=== PATIENT | female | born 1990 | race African-American/Black ===

== ENCOUNTER 2016-05-28 16:35 | Emergency (ER) | payer OTHER ==
[~2016-05-28] VITALS: Ht 160 cm; Wt 81.6 kg
[~2016-05-28 16:35] MED LIST: 3-DAY VAGINAL C21 GM VAGIN; ACETAMINOPHEN-1 EAC1 ORAL; ACETAMINOPHEN500 MG ORAL; AFRIN NASAL SPR30 ML NASAL; ALBUTEROL SULF8.5 GM INH; AMOXICILLIN500 MG ORAL; AUGMENTIN 875-1 EAC1 ORAL; BACTRIM DS TAB1 EAC1 ORAL; BACTRIM-DS1 EA ORAL; CEPHALEXIN500 MG ORAL; CIPRO250 MG ORAL; CIPROFLOXACIN500 M2 ORAL; COLACE100 MG ORAL; CORTISPORIN EAR10 M1 RIGHT EAR; DIFLUCAN100 MG ORAL; DIFLUCAN150 MG PO; ENTEX T 60-3751 EACH PO; FLAGYL500 MG ORAL; FLONASE1 SPRAYS; IBUPROFEN600 MG ORAL; IBUPROFEN800 MG ORAL; KEFLEX500 MG ORAL; METRONIDAZOLE500 MG ORAL; MONISTAT 745 GM VG; NKM; NORCO 10-325 T1 EACH PO; NORCO 5-325 TA1 EACH ORAL; NORCO 5-325 TA1 EACH PO; ONDANSETRON ODT4 MG ORAL; PENICILLIN V P500 MG PO; PERCOCET 5-3251 EACH ORAL; PHENAZOPYRIDIN100 MG ORAL; PROMETHAZINE-C118 M1 ORAL; SUDAFED30 M1 PO; TAMIFLU75 MG ORAL; TRAMADOL HCL50 MG ORAL; TYLENOL EXTRA500 MG ORAL; VIBRAMYCIN100 MG ORAL; VICODIN 5-5001 EACH ORAL; VICODIN 5-5001 EACH PO; ZANTAC150 MG ORAL; ZITHROMAX250 MG ORAL; ZOFRAN ODT4 MG ORAL; ZOFRAN4 MG ORAL; [UNRECOGNIZED DRUG - REMARK]
[2016-05-28 17:25] LABS: BASOPHILS % (AUTO) 0.5 % (0.0-2.0); EOSINOPHILS % (AUTO) 2.4 % (0.0-3.0); LYMPHOCYTES % (AUTO) 24.7 % (20.0-45.0); MEAN CORPUSCULAR HEMOGLOBIN 23.5 PG (27.0-31.0); MEAN CORPUSCULAR HGB CONC 30.3 G/DL (32.0-36.0); MEAN CORPUSCULAR VOLUME 78 FL (80-99); MEAN PLATELET VOLUME 9.1 FL (6.5-10.1); MONOCYTES % (AUTO) 5.4 % (1.0-10.0); NEUTROPHILS % (AUTO) 66.9 % (45.0-75.0); PLATELET COUNT 257 K/UL (150-450); RED BLOOD COUNT 4.24 M/UL (4.20-5.40); RED CELL DISTRIBUTION WIDTH 18.9 % (11.6-14.8); WHITE BLOOD COUNT 10.6 K/UL (4.8-10.8)
[2016-05-28 17:29] VITALS: BP 103/62
--- NOTE | 2016-05-28 17:41 | Emergency Room Report ---
History of Present Illness General Chief Complaint: Abdominal Pain Source: Patient Present Illness HPI Patient is a 25-year-old female presented after having increased lower abdominal pain. Patient reported having increased nausea and vomiting. Patient stated that she had nausea did not vomit she stuck her finger down her throat. The patient had denied any fever. She reported having some lower abdominal pain which he describes a vague in nature and does not radiate. Patient states her last menses was mid March and she has irregular periods. Allergies: Coded Allergies: ASPIRIN (Verified Allergy, Unknown, 04/18/12) IBUPROFEN (Verified Allergy, Unknown, 04/13/15) Patient History Past Medical History: see triage record Last Menstrual Period: Mar 2016 Now: Yes - unsure Reviewed Nursing Documentation: PMH: Agreed, PSxH: Agreed Nursing Documentation-PMH Past Medical History: No Stated History Review of Systems All Other Systems: negative except mentioned in HPI Physical Exam Vital Signs Date Time Temp Pulse Resp B/P Pulse Ox O2 Delivery O2 Flow Rate FiO2 05/28/16 16:44 98.2 85 14 101/60 98 Room Air Sp02 EP Interpretation: reviewed, normal General Appearance: normal inspection, well appearing, no apparent distress, alert, GCS 15 Head: atraumatic ENT: normal ENT inspection, hearing grossly normal, normal voice Neck: normal inspection, full range of motion, supple, no bony tend Respiratory: normal inspection, lungs clear, normal breath sounds, no respiratory distress, no retraction, no wheezing Cardiovascular #1: regular rate, rhythm, no edema Gastrointestinal: normal inspection, normal bowel sounds, non tender, soft, no guarding, no hernia Genitourinary: no CVA tenderness Musculoskeletal: normal inspection, back normal, normal range of motion Neurologic: normal inspection, alert, oriented x3, responsive, snowmaker III-XII nml as tested, speech normal Psychiatric: normal inspection, judgement/insight normal, mood/affect normal Skin: normal inspection, normal color, no rash Medical Decision Making Diagnostic Impression: Primary Impression: UTI (lower urinary tract infection) Additional Impression: ER Course Patient presented for abdominal pain. Differential diagnoses included ischemic bowel, appendicitis, perforated viscus, abdominal aortic aneurysm, inferior myocardial infarction, viral gastroenteritis Because of complexity of patient's case laboratory testing and imaging studies were ordered.A urine test was notable for the evidence . Quantitative hCG was ordered. A pelvic ultrasound was ordered due to positive test. .The pelvic ultrasound showed an intrauterine with estimated gestational age 5 weeks with normal heart tones. Urinalysis showed evidence of urinary tract infection. The patient is advised to follow up with primary care doctor in 1-2 days. Patient is advised to return if any worsening condition or if any changes in status that are concerning Labs Test 05/28/16 16:50 05/28/16 17:15 05/28/16 18:00 Urine Color Yellow Urine Appearance Cloudy Urine pH 5.5 (4.5-8.0) Urine Specific [place] 1.020 (1.005-1.035) Urine Protein 1+ (NEGATIVE) Urine Glucose (UA) Negative (NEGATIVE) Urine Ketones Negative (NEGATIVE) Urine Occult Blood 3+ (NEGATIVE) Urine Nitrite Negative (NEGATIVE) Urine Bilirubin Negative (NEGATIVE) Urine Urobilinogen Normal MG/DL (0.0-1.0) Urine Leukocyte Esterase 2+ (NEGATIVE) Urine RBC 0-2 /HPF (0 - 2) Urine WBC Tntc /HPF (0 - 2) Urine Squamous Epithelial Cells Many /LPF (NONE/OCC) Urine Bacteria Many /HPF (NONE) Urine HCG, Qualitative Positive White Blood Count 10.6 K/UL (4.8-10.8) Red Blood Count 4.24 M/UL (4.20-5.40) Hemoglobin 10.0 G/DL (12.0-16.0) Hematocrit 33.0 % (37.0-47.0) Mean Corpuscular Volume 78 FL (80-99) Mean Corpuscular Hemoglobin 23.5 PG (27.0-31.0) Mean Corpuscular Hemoglobin Concent 30.3 G/DL (32.0-36.0) Red Cell Distribution Width 18.9 % (11.6-14.8) Platelet Count 257 K/UL (150-450) Mean Platelet Volume 9.1 FL (6.5-10.1) Neutrophils (%) (Auto) 66.9 % (45.0-75.0) Lymphocytes (%) (Auto) 24.7 % (20.0-45.0) Monocytes (%) (Auto) 5.4 % (1.0-10.0) Eosinophils (%) (Auto) 2.4 % (0.0-3.0) Basophils (%) (Auto) 0.5 % (0.0-2.0) Sodium Level 139 mEQ/L (135-145) Potassium Level 3.7 mEQ/L (3.4-4.9) Chloride Level 101 mEQ/L (98-107) Carbon Dioxide Level 26 mEQ/L (20-30) Anion Gap 12 (5-15) Blood Urea Nitrogen 8 mg/dL (7-23) Creatinine 0.7 mg/dL (0.5-0.9) Estimat Glomerular Filtration Rate > 60 mL/min (>60) Glucose Level 119 mg/dL (74-106) Calcium Level 9.1 mg/dL (8.6-10.2) Total Bilirubin < 0.2 mg/dL (0.0-1.2) Aspartate Amino Transf (AST/SGOT) 12 U/L (5-40) Alanine Aminotransferase (ALT/SGPT) 8 U/L (3-33) Alkaline Phosphatase 26 U/L (35-104) Total Protein 6.9 g/dL (6.6-8.7) Albumin 4.1 g/dL (3.5-5.2) Globulin 2.8 g/dL Albumin/Globulin Ratio 1.4 (1.0-2.7) Lipase 12 U/L (< 60) Last Vital Signs Date Time Temp Pulse Resp B/P Pulse Ox O2 Delivery O2 Flow Rate FiO2 05/28/16 17:29 98.0 86 21 103/62 100 Room Air Status: improved Disposition: HOME, SELF-CARE Condition: Stable Scripts Cephalexin* (KEFLEX*) 500 Mg Capsule 500 MG ORAL Q6H, #28 CAP 0 Refills Prov: Dwight Pyle 05/28/16 Referrals: [facility],REFERRING (PCP) Dwight Pyle May 28, 2016 17:41
[2016-05-28 17:54] LABS: APPEARANCE,URINE CLOUDY
[2016-05-28 17:55] LABS: KETONES,URINE NEGATIVE (NEGATIVE); LEUKOCYTE ESTERASE ,URINE 2+ (NEGATIVE); NITRITE,URINE NEGATIVE (NEGATIVE); PH,URINE 5.5 (4.5-8.0); PROTEIN,URINE 1+ (NEGATIVE); UROBILINOGEN,URINE NORMAL MG/DL (0.0-1.0)
[2016-05-28 18:04] LABS: ALANINE AMINOTRANSFERASE 8 U/L (3-33); ALBUMIN/GLOBULIN RATIO 1.4 (1.0-2.7); ANION GAP 12 (5-15); ASPARTATE AMINO TRANSFERASE 12 U/L (5-40); CALCIUM 9.1 mg/dL (8.6-10.2); CARBON DIOXIDE 26 mEQ/L (20-30); CHLORIDE 101 mEQ/L (98-107); CREATININE 0.7 mg/dL (0.5-0.9); GLOMERULAR FILTRATION RATE > 60 mL/min (>60); HEMOLYSIS 0; LIPASE 12 U/L (< 60); POTASSIUM 3.7 mEQ/L (3.4-4.9); SODIUM 139 mEQ/L (135-145); TOTAL PROTEIN 6.9 g/dL (6.6-8.7)
[2016-05-28 18:08] LABS: BACTERIA,URINE MANY /HPF; RBC,URINE 0-2 /HPF (0 - 2); SQUAMOUS EPITHELIAL CELL,UR MANY /LPF (NONE/OCC); WBC,URINE TNTC /HPF (0 - 2)
[2016-05-28] MEDS ORDERED: cefTRIAXone 1 GM in NS 55 ML IVPB ONE (18:15)
[2016-05-28] MEDS ORDERED: Tubing IV Secondary IV ONE (18:20)
[2016-05-28 18:28] VITALS: BP 102/59
[2016-05-28] MEDS ORDERED: KEFLEX500 MG ORAL (19:16)
[2016-05-28 20:15] VITALS: BP 124/65
[2016-05-28 20:16] VITALS: BP 124/65
--- NOTE | 2016-06-14 08:58 | Diagnostic Imaging Report ---
Indication:Lower abdominal and pelvic pain Technique: Grayscale and duplex Doppler imaging of the pelvis performed utilizing a transabdominal scan and endovaginal scan. Comparison: None Findings: Single living intrauterine demonstrated. heart tones are demonstrated. Yolk sac is poorly visualized. This may be a threatened spontaneous given that the yolk sac is not seen and the sac diameter is discordant with crown-rump length. The discrepancy may be on a technical basis due to a relatively poor scan. However followup is indicated and strongly recommended gestational sac is estimated at 5 weeks 4 days. [place]-rump length is estimated at 6 weeks 2 days. The uterus is retroverted. The left ovary is normal in appearance and measures 3 x 2.7 x 2.2 CM. The right ovary is not seen. Impression: Single living intrauterine . Gestational age is questionable but based on sonographic criteria estimated at 6 weeks 2 days plus or -4 days. Some evidence to suggest this may be a threatened as discussed above. Followup is recommended.
== END 2016-05-28 20:17 | disposition home or self-care (01) ==
LOC: EMR 17:35
DX: O23.41 Unspecified infection of urinary tract in pregnancy, first trimester (principal); Z3A.01 Less than 8 weeks gestation of pregnancy; Z88.6 Allergy status to analgesic agent
CPT/HCPCS: 36415; 76801; 80053; 81003; 81025; 83690; 84702; 85025; 87086; 96361; 96374; 99284; J0696; J2405; 76856

== ENCOUNTER 2016-12-28 10:33 | Emergency (ER) | payer OTHER ==
[~2016-12-28] VITALS: Ht 160 cm; Wt 108.9 kg
[2016-12-28] MEDS ORDERED: Morphine Sulfate 4mg/ml Inj IM ONE (11:30)
[2016-12-28 11:53] LABS: APPEARANCE,URINE CLOUDY; KETONES,URINE NEGATIVE (NEGATIVE); LEUKOCYTE ESTERASE ,URINE 1+ (NEGATIVE); NITRITE,URINE NEGATIVE (NEGATIVE); PH,URINE 6.5 (4.5-8.0); PROTEIN,URINE NEGATIVE (NEGATIVE); UROBILINOGEN,URINE NORMAL MG/DL (0.0-1.0)
[2016-12-28 12:15] VITALS: BP 132/97
[2016-12-28 12:20] LABS: BACTERIA,URINE FEW /HPF; RBC,URINE 0-2 /HPF (0 - 2); SQUAMOUS EPITHELIAL CELL,UR MODERATE /LPF (NONE/OCC)
[2016-12-28 12:21] LABS: AMORPHOUS SEDIMENT,UR FEW /LPF
[2016-12-28] MEDS ORDERED: Norco 5mg/325mg tab ORAL ONE (12:30)
[2016-12-28] MEDS ORDERED: KEFLEX500 MG ORAL (12:50)
[2016-12-28] MEDS ORDERED: NORCO 5-325 TA1 EACH ORAL (12:50)
[2016-12-28 12:57] VITALS: BP 130/80
--- NOTE | 2016-12-28 14:42 | Emergency Room Report ---
History of Present Illness General Chief Complaint: Back Pain-No Injury Source: Patient Present Illness HPI 26-year-old female presents ED complaining of back pain x2 days. Pain is 10 on a 10, sharp, localized to the right flank, nonradiating. Patient notes pain with urination. Notes history of frequent UTIs. Denies fevers or chills. Denies nausea or vomiting. No other aggravating relieving factors. Denies any other associated symptom Allergies: Coded Allergies: ASPIRIN (Verified Allergy, Unknown, 04/18/12) IBUPROFEN (Verified Allergy, Unknown, 04/13/15) Patient History Past Medical History: none Past Surgical History: none Pertinent Family History: none Social History: Denies: smoking, alcohol use, drug use Now: No Immunizations: UTD Reviewed Nursing Documentation: PMH: Agreed, PSxH: Agreed Nursing Documentation-PMH Past Medical History: No Stated History Review of Systems All Other Systems: negative except mentioned in HPI Physical Exam Vital Signs Date Time Temp Pulse Resp B/P (MAP) Pulse Ox O2 Delivery O2 Flow Rate FiO2 12/28/16 10:41 97.9 84 15 132/97 98 Nasal Cannula Sp02 EP Interpretation: reviewed, normal General Appearance: no apparent distress, alert, GCS 15, non-toxic, obese Head: normocephalic, atraumatic Eyes: bilateral eye normal inspection, bilateral eye PERRL ENT: hearing grossly normal, normal pharynx, no angioedema, normal voice Neck: full range of motion, supple/symm/no masses Respiratory: chest non-tender, lungs clear, normal breath sounds, speaking full sentences Cardiovascular #1: regular rate, rhythm, no edema Cardiovascular #2: 2+ carotid (R), 2+ carotid (L), 2+ radial (R), 2+ radial (L) , 2+ dorsalis pedis (R), 2+ dorsalis pedis (L) Gastrointestinal: normal bowel sounds, non tender, soft, non-distended, no guarding, no rebound Rectal: deferred Genitourinary: normal inspection, CVA tenderness (R) Musculoskeletal: back normal, gait/station normal, normal range of motion, non- tender Neurologic: alert, oriented x3, responsive, motor strength/tone normal, sensory intact, speech normal Psychiatric: judgement/insight normal, memory normal, mood/affect normal, no suicidal/homicidal ideation Reflexes: 3+ bicep (R), 3+ bicep (L), 3+ tricep (R), 3+ tricep (L), 3+ knee (R) , 3+ knee (L) Skin: normal color, no rash, warm/dry, well hydrated Lymphatic: no adenopathy Medical Decision Making Diagnostic Impression: Primary Impression: Pyelonephritis ER Course Hospital Course 26-year-old female presents to ED complaining of dysuria with R flank pain Differential diagnoses include: UTI, cystitis, pyelonephritis Clinical course Patient placed on stretcher. After initial history and physical I ordered pain meds, UA, urine . UA + bacteria. Consistent with pyelonephritis. However patient is afebrile, nontoxic. Not vomiting. Can be discharged with antibiotics Diagnosis - pyelonephritis Stable and discharged home with prescriptions for Rx [place], Keflex. Instructed to followup with PMD. Return to ED if symptoms recur or worsen Labs Test 12/28/16 11:30 Urine Color Pale yellow Urine Appearance Cloudy Urine pH 6.5 (4.5-8.0) Urine Specific [place] 1.010 (1.005-1.035) Urine Protein Negative (NEGATIVE) Urine Glucose (UA) Negative (NEGATIVE) Urine Ketones Negative (NEGATIVE) Urine Occult Blood Negative (NEGATIVE) Urine Nitrite Negative (NEGATIVE) Urine Bilirubin Negative (NEGATIVE) Urine Urobilinogen Normal MG/DL (0.0-1.0) Urine Leukocyte Esterase 1+ (NEGATIVE) Urine RBC 0-2 /HPF (0 - 2) Urine WBC 2-4 /HPF (0 - 2) Urine Squamous Epithelial Cells Moderate /LPF (NONE/OCC) Urine Amorphous Sediment Few /LPF (NONE) Urine Bacteria Few /HPF (NONE) Urine HCG, Qualitative Negative Last Vital Signs Date Time Temp Pulse Resp B/P (MAP) Pulse Ox O2 Delivery O2 Flow Rate FiO2 12/28/16 12:57 78 16 130/80 98 12/28/16 12:15 97.9 Nasal Cannula Status: improved Disposition: HOME, SELF-CARE Condition: Stable Scripts Cephalexin* (KEFLEX*) 500 Mg Capsule 500 MG ORAL Q6H, #28 CAP 0 Refills Prov: JOSE HUNTLEY M.D. 12/28/16 Hydrocodone Bit/Acetaminophen 5-325* (NORCO 5-325*) 1 Each Tablet 1 TAB ORAL Q6H Y for For Pain, #10 TAB 0 Refills Prov: JOSE HUNTLEY M.D. 12/28/16 Patient Instructions: Pyelonephritis, Adult JOSE HUNTLEY M.D. Dec 28, 2016 14:42
== END 2016-12-28 13:01 | disposition home or self-care (01) ==
LOC: EMR 12:23
DX: N12 Tubulo-interstitial nephritis, not specified as acute or chronic (principal); Z88.6 Allergy status to analgesic agent
CPT/HCPCS: 81003; 81025; 96374; 99284; J2270

== ENCOUNTER 2017-01-23 21:23 | Emergency (ER) | payer OTHER ==
[~2017-01-23] VITALS: Ht 160 cm; Wt 99.8 kg
[2017-01-23] MEDS ORDERED: NKM (21:40)
[2017-01-23] MEDS ORDERED: Norco 5mg/325mg tab PO ONE (22:00)
[2017-01-23] MEDS ORDERED: NORCO 5-325 TA1 EACH ORAL (22:43)
[2017-01-23 22:50] VITALS: BP 103/68
--- NOTE | 2017-01-24 01:21 | Emergency Room Report ---
History of Present Illness General Chief Complaint: Lower Extremity Injury Source: Patient Present Illness HPI 26-year-old female presents ED complaining of right ankle pain status post fall. She states she rolled her ankle tonight on the sidewalk. Patient presents with pain and swelling to her right ankle. Pain is throbbing, 10 out of 10, nonradiating. Unable to bear weight. Denies any other injuries. No other aggravating factors. Denies any other associated symptoms Allergies: Coded Allergies: ASPIRIN (Verified Allergy, Unknown, 04/18/12) IBUPROFEN (Verified Allergy, Unknown, 04/13/15) Patient History Past Medical History: none Past Surgical History: none Pertinent Family History: none Social History: Denies: smoking, alcohol use, drug use Last Menstrual Period: 01/18/17 Now: No Immunizations: UTD Reviewed Nursing Documentation: PMH: Agreed, PSxH: Agreed Nursing Documentation-PMH Past Medical History: No History, Except For Review of Systems All Other Systems: negative except mentioned in HPI Physical Exam Vital Signs Date Time Temp Pulse Resp B/P (MAP) Pulse Ox O2 Delivery O2 Flow Rate FiO2 01/23/17 21:32 99.0 99 16 103/68 99 Room Air Sp02 EP Interpretation: reviewed, normal General Appearance: no apparent distress, alert, GCS 15, non-toxic Head: normocephalic, atraumatic Eyes: bilateral eye normal inspection, bilateral eye PERRL ENT: hearing grossly normal, normal pharynx, no angioedema, normal voice Neck: full range of motion, supple/symm/no masses Respiratory: chest non-tender, lungs clear, normal breath sounds, speaking full sentences Cardiovascular #1: regular rate, rhythm, no edema Cardiovascular #2: 2+ carotid (R), 2+ carotid (L), 2+ radial (R), 2+ radial (L) , 2+ dorsalis pedis (R), 2+ dorsalis pedis (L) Gastrointestinal: normal bowel sounds, non tender, soft, non-distended, no guarding, no rebound Rectal: deferred Genitourinary: normal inspection, no CVA tenderness Musculoskeletal: back normal, swelling - R ankle Neurologic: alert, oriented x3, responsive, motor strength/tone normal, sensory intact, speech normal Psychiatric: judgement/insight normal, memory normal, mood/affect normal, no suicidal/homicidal ideation Reflexes: 3+ bicep (R), 3+ bicep (L), 3+ tricep (R), 3+ tricep (L), 3+ knee (R) , 3+ knee (L) Skin: normal color, no rash, warm/dry, well hydrated Lymphatic: no adenopathy Procedures Splinting Splinting : Consent: Verbal Pre-Made Type: NANCY wrap - R ankle Pre-Proc Neuro Vasc Exam: normal Post-Proc Neuro Vasc Exam: normal Patient Tolerated: Well Complications: None Medical Decision Making Diagnostic Impression: Primary Impression: Ankle sprain Qualified Codes: S93.401A - Sprain of unspecified ligament of right ankle, initial encounter ER Course Hospital Course 26-year-old F presents to ED complaining of R ankle pain s/p trip and fall Differential diagnoses include: Fracture, dislocation, sprain, contusion Clinical course Patient placed on stretcher. After initial history and physical, I ordered pain medications and Xrays of R foot/ankle Xrays prelim read shows no acute fracture/dislocation. placed in nancy wrap, given crutches Diagnosis - ankle sprain Stable and discharged to home with prescription for [place]. apply ice, keep elevated. weight bear as tolerated. Followup with PMD. Return to ED if symptoms recur or worsen Other X-Ray Diagnostic Results Other X-Ray Diagnostic Results #1: X-Ray ordered: R ankle # of Views/Limited Vs Complete: 3 View Indication: Pain EP Interpretation: Yes Interpretation: no dislocation, no soft tissue swelling, no fractures Impression: No acute disease Electronically Signed by: Electronically signed by Cosme Bonilla MD Other X-Ray Diagnostic Results #2: X-Ray ordered: Right foot # of Views/Limited Vs Complete: 3 View Indication: Pain EP Interpretation: Yes Interpretation: no dislocation, no soft tissue swelling, no fractures Impression: No acute disease Electronically Signed by: Electronically signed by Cosme Bonilla MD Last Vital Signs Date Time Temp Pulse Resp B/P (MAP) Pulse Ox O2 Delivery O2 Flow Rate FiO2 01/23/17 22:50 99 16 103/68 Room Air 01/23/17 21:32 99.0 99 Status: improved Disposition: HOME, SELF-CARE Condition: Stable Scripts Hydrocodone Bit/Acetaminophen 5-325* (NORCO 5-325*) 1 Each Tablet 1 TAB ORAL Q6H Y for For Pain, #10 TAB 0 Refills Prov: COSME BONILLA M.D. 01/23/17 Patient Instructions: Ankle Sprain COSME BONILLA M.D. Jan 24, 2017 01:21
--- NOTE | 2017-01-24 10:48 | Diagnostic Imaging Report ---
Indication: Pain Comparison: None Findings: 3 views of the right foot were obtained. No acute fractures, malalignment, erosions or periostitis are identified. Bone mineralization is within normal limits. Soft tissues are unremarkable. Impression: Negative examination of the right foot.
--- NOTE | 2017-01-24 10:49 | Diagnostic Imaging Report ---
Indication: Pain right ankle Comparison: 11/16/13 Findings: 3 views of the right ankle obtained. No acute fracture, malalignment, periostitis, or osteochondral defects are identified. Soft tissues are unremarkable. Impression: Negative examination
== END 2017-01-23 22:50 | disposition home or self-care (01) ==
LOC: EMR 22:28
DX: S93.401A Sprain of unspecified ligament of right ankle, initial encounter (principal); W19.XXXA Unspecified fall, initial encounter; Y92.480 Sidewalk as the place of occurrence of the external cause; Z88.6 Allergy status to analgesic agent
CPT/HCPCS: 99284

== ENCOUNTER 2017-03-03 20:13 | Emergency (ER) | payer OTHER ==
--- NOTE | 2017-03-03 21:12 | Emergency Room Report ---
History of Present Illness General Chief Complaint: To Be Triaged Present Illness HPI Is a 26-year-old female presents with chief complaint abdominal pain. She was called and placed into a room. She then left . This was done before my shift. Patient was not seen by any doctor. Allergies: Coded Allergies: ASPIRIN (Verified Allergy, Unknown, 04/18/12) IBUPROFEN (Verified Allergy, Unknown, 04/13/15) Medical Decision Making Diagnostic Impression: Primary Impression: Abdominal pain Qualified Codes: R10.84 - Generalized abdominal pain Disposition: ELOPED Condition: Stable CHARMAINE BILLY M.D. Mar 03, 2017 21:12
== END 2017-03-03 20:25 | disposition left against medical advice (07) ==
LOC: EMR 20:25
DX: R10.9 Unspecified abdominal pain (principal); Z53.21 Procedure and treatment not carried out due to patient leaving prior to being seen by health care provider
CPT/HCPCS: 99281

== ENCOUNTER 2017-03-24 09:45 | Emergency (ER) | payer OTHER ==
[~2017-03-24] VITALS: Ht 160 cm; Wt 99.8 kg
[2017-03-24 09:52] VITALS: BP 117/54
[2017-03-24] MEDS ORDERED: NKM (09:54)
--- NOTE | 2017-03-24 10:03 | Emergency Room Report ---
History of Present Illness General Chief Complaint: Abdominal Pain Source: Patient Present Illness HPI 26-year-old female walks in with yellow vaginal discharge and suprapubic pelvic pain since last night. Multiple visits here in the ER for similar complaint Patient endorses vaginal discharge after recent unprotected sex with consistent partner History of previous STD but does not remember which one Denies fever or chills or upper abdominal pain In December was diagnosed with pyelonephritis never UA showed only 2-4 WBCs and "some bacteria" Urine culture did not show definitive bacterial infection Denies sick contacts foreign travel Denies previous abdominal pelvic surgery Allergies: Coded Allergies: ASPIRIN (Verified Allergy, Unknown, 04/18/12) IBUPROFEN (Verified Allergy, Unknown, 04/13/15) Patient History Past Medical History: none Past Surgical History: none Pertinent Family History: none Social History: Denies: smoking, alcohol use, drug use Last Menstrual Period: One week ago Now: No Immunizations: UTD Reviewed Nursing Documentation: PMH: Agreed, PSxH: Agreed Nursing Documentation-PMH Past Medical History: No Stated History Review of Systems All Other Systems: negative except mentioned in HPI Physical Exam Vital Signs Date Time Temp Pulse Resp B/P (MAP) Pulse Ox O2 Delivery O2 Flow Rate FiO2 03/24/17 09:52 98.1 96 16 117/54 98 Room Air Sp02 EP Interpretation: reviewed, normal General Appearance: normal inspection, well appearing, no apparent distress, alert Head: atraumatic Eyes: bilateral eye PERRL, bilateral eye EOMI ENT: normal ENT inspection, hearing grossly normal, normal voice Neck: normal inspection, full range of motion, supple, no bony tend Respiratory: normal inspection, lungs clear, normal breath sounds, no respiratory distress, no retraction, no wheezing Cardiovascular #1: regular rate, rhythm, no edema Gastrointestinal: normal inspection, normal bowel sounds, non tender, soft, no guarding, no hernia Genitourinary: no CVA tenderness Musculoskeletal: normal inspection, back normal, normal range of motion, Jazmyn' s Sign negative Neurologic: normal inspection, alert, oriented x3, responsive, rate clerk passenger III-XII nml as tested, motor strength/tone normal, speech normal Psychiatric: normal inspection, judgement/insight normal, mood/affect normal Skin: normal inspection, normal color, no rash Medical Decision Making Diagnostic Impression: Primary Impression: Vaginal discharge Additional Impression: Cervicitis ER Course Urine negative Urinalysis does show some bacteria Given vaginal discharge and recent unprotected sex with urinalysis showing some bacteria, suspect possible cervicitis Unlikely PUD or [place] German syndrome given no focal abdominal deficits, no fever, and patient's well appearance Gait and IM ceftriaxone and oral azithromycin Rx doxycycline as well yo M F with ER course: Patient has remained stable during ED stay. Disposition: Patient is to be discharged to home. Prescriptions given are doxycycline Patient is instructed to follow up with their primary care doctor within 5 days. Strict return precautions discussed with patient such as fever, chills, worsening/severe pain, nausea, vomiting, which may indicate severe illness. Patient verbalizes understanding and agrees with plan. Please note that this Emergency Department Report was dictated using [employer] caprifier technology software, occasionally this can lead to erroneous entry secondary to interpretation by the dictation equipment Last Vital Signs Date Time Temp Pulse Resp B/P (MAP) Pulse Ox O2 Delivery O2 Flow Rate FiO2 03/24/17 09:52 98.1 96 16 117/54 98 Room Air Status: improved Disposition: HOME, SELF-CARE Scripts Doxycycline Hyclate* (VIBRAMYCIN*) 100 Mg Capsule 100 MG ORAL EVERY 12 HOURS for 7 Days, #14 CAP 0 Refills Prov: CELESTE FAROOQ M.D. 03/24/17 CELESTE FAROOQ M.D. Mar 24, 2017 10:03
[2017-03-24 10:13] LABS: APPEARANCE,URINE VERY CLOUDY; KETONES,URINE NEGATIVE (NEGATIVE); LEUKOCYTE ESTERASE ,URINE 2+ (NEGATIVE); NITRITE,URINE NEGATIVE (NEGATIVE); PH,URINE 6.5 (4.5-8.0); PROTEIN,URINE 2+ (NEGATIVE); UROBILINOGEN,URINE 1 MG/DL (0.0-1.0)
[2017-03-24 10:24] LABS: BACTERIA,URINE FEW /HPF; SQUAMOUS EPITHELIAL CELL,UR MANY /LPF (NONE/OCC)
[2017-03-24] MEDS ORDERED: VIBRAMYCIN100 MG ORAL (10:43)
[2017-03-24] MEDS ORDERED: Ketorolac 60mg Inj IM ONE (10:45)
[2017-03-24] MEDS ORDERED: Lidocaine 1% MPF 10mg/ml 5ml INJ ONE (10:45)
[2017-03-24] MEDS ORDERED: Azithromycin 250mg tab ORAL ONE (10:45)
[2017-03-24 10:58] VITALS: BP 117/54
== END 2017-03-24 10:58 | disposition home or self-care (01) ==
LOC: EMR 10:25
DX: N89.8 Other specified noninflammatory disorders of vagina (principal); N72 Inflammatory disease of cervix uteri; Z88.6 Allergy status to analgesic agent
CPT/HCPCS: 81003; 81025; 96372; 99284; J0696; Q0144

== ENCOUNTER 2017-04-06 20:30 | Emergency (ER) | payer SELFPAY ==
[~2017-04-06] VITALS: Ht 160 cm; Wt 115.7 kg
[2017-04-06 20:43] VITALS: BP 114/78
[2017-04-06 21:54] LABS: APPEARANCE,URINE CLEAR; KETONES,URINE NEGATIVE (NEGATIVE); LEUKOCYTE ESTERASE ,URINE 1+ (NEGATIVE); NITRITE,URINE NEGATIVE (NEGATIVE); PH,URINE 8 (4.5-8.0); PROTEIN,URINE 1+ (NEGATIVE); UROBILINOGEN,URINE NORMAL MG/DL (0.0-1.0)
--- NOTE | 2017-04-06 22:13 | Emergency Room Report ---
History of Present Illness General Chief Complaint: Abdominal Pain Source: Patient Present Illness HPI 26-year-old female, no significant past medical history, presenting with menorrhagia, nausea vomiting and diarrhea for 2 days. Patient states that for 2 weeks she has had menstrual bleeding, about one to 2 packs a day, no passage of clots, states that her period is usually irregular. Also states that she has had some nausea vomiting, about 2 episodes today, and watery nonbloody diarrhea for the last 2 days. No fever no chills. Points to suprapubic area of her crampy abdominal pain. No abdominal surgeries. Denies any abnormal vaginal discharge, currently not sexually active Allergies: Coded Allergies: ASPIRIN (Verified Allergy, Unknown, 04/18/12) IBUPROFEN (Verified Allergy, Unknown, 04/13/15) Patient History Past Medical History: see triage record Past Surgical History: none Pertinent Family History: none Last Menstrual Period: 04/06/17 Reviewed Nursing Documentation: PMH: Agreed, PSxH: Agreed Review of Systems All Other Systems: negative except mentioned in HPI Physical Exam Vital Signs Date Time Temp Pulse Resp B/P (MAP) Pulse Ox O2 Delivery O2 Flow Rate FiO2 04/06/17 20:39 98.2 96 12 114/78 99 Room Air Sp02 EP Interpretation: reviewed, normal General Appearance: alert, GCS 15, non-toxic, mild distress Head: normocephalic, atraumatic Eyes: bilateral eye normal inspection, bilateral eye PERRL, bilateral eye EOMI ENT: normal ENT inspection, normal pharynx, normal voice, moist mucus membranes Neck: normal inspection, full range of motion, supple Respiratory: normal inspection, lungs clear, normal breath sounds, no respiratory distress, no retraction, no wheezing, speaking full sentences, chest symmetrical Cardiovascular #1: normal inspection, regular rate, rhythm, normal capillary refill Cardiovascular #2: 2+ radial (R), 2+ radial (L) Gastrointestinal: normal inspection, non tender, soft, non-distended, no guarding Genitourinary: no CVA tenderness, adnexa normal, cervix normal, os closed, other - no blood in vaginal vault Musculoskeletal: normal inspection, back normal, normal range of motion, non- tender Neurologic: normal inspection, alert, oriented x3, responsive, motor strength/ tone normal, sensory intact, normal gait, speech normal Psychiatric: normal inspection, judgement/insight normal, memory normal Skin: normal inspection, normal color, no rash, warm/dry, well hydrated, normal turgor Medical Decision Making Diagnostic Impression: Primary Impression: Menorrhagia Additional Impression: Abdominal pain ER Course 26-year-old female with nausea vomiting diarrhea, also 2 weeks of menorrhagia Differential Diagnosis: Gastritis, gastroenteritis, cholecystitis, appendicitis, diverticulitis, SBO, , UTI/pyelo At this time abdomen is soft nontender, not likely to have acute intra- abdominal surgical pathology, will hold CT for now. Also at this time patient does not appear to be in acute distress, unlikely to be ovarian torsion given the benign physical exam Plan: Basic labs, ua ER course: Patient has remained stable during ED stay. Pain improved. Repeat abdominal exam is nontender. Tolerating PO no pads used in ED HD stable dc home Disposition: Patient is to be discharged to home. Patient is instructed to follow up with their primary care doctor within 5 days. Strict return precautions discussed with patient such as fever, chills, worsening/severe abdominal pain, nausea, vomiting, black or bloody stools, which may indicate severe illness. Patient verbalizes understanding and agrees with plan. Please note that this Emergency Department Report was dictated using [employer] h[employer] helper technology software, occasionally this can lead to erroneous entry secondary to interpretation by the dictation equipment Laboratory Tests Test 04/06/17 21:12 04/06/17 22:00 Urine Color Yellow Urine Appearance Clear Urine pH 8 (4.5-8.0) Urine Specific [place] 1.010 (1.005-1.035) Urine Protein 1+ (NEGATIVE) H Urine Glucose (UA) Negative (NEGATIVE) Urine Ketones Negative (NEGATIVE) Urine Occult Blood 3+ (NEGATIVE) H Urine Nitrite Negative (NEGATIVE) Urine Bilirubin Negative (NEGATIVE) Urine Urobilinogen Normal MG/DL (0.0-1.0) Urine Leukocyte Esterase 1+ (NEGATIVE) H Urine RBC 5-10 /HPF (0 - 2) H Urine WBC 2-4 /HPF (0 - 2) Urine Squamous Epithelial Cells Few /LPF (NONE/OCC) Urine Bacteria Few /HPF (NONE) Urine HCG, Qualitative Negative White Blood Count 13.0 K/UL (4.8-10.8) H Red Blood Count 5.01 M/UL (4.20-5.40) Hemoglobin 11.8 G/DL (12.0-16.0) L Hematocrit 41.2 % (37.0-47.0) Mean Corpuscular Volume 82 FL (80-99) Mean Corpuscular Hemoglobin 23.5 PG (27.0-31.0) L Mean Corpuscular Hemoglobin Concent 28.6 G/DL (32.0-36.0) L Red Cell Distribution Width 16.2 % (11.6-14.8) H Platelet Count 282 K/UL (150-450) Mean Platelet Volume 7.5 FL (6.5-10.1) Neutrophils (%) (Auto) 74.0 % (45.0-75.0) Lymphocytes (%) (Auto) 17.1 % (20.0-45.0) L Monocytes (%) (Auto) 4.9 % (1.0-10.0) Eosinophils (%) (Auto) 3.6 % (0.0-3.0) H Basophils (%) (Auto) 0.5 % (0.0-2.0) Sodium Level 141 MMOL/L (136-145) Potassium Level 3.4 MMOL/L (3.5-5.1) L Chloride Level 105 MMOL/L (98-107) Carbon Dioxide Level 28 MMOL/L (21-32) Anion Gap 8 mmol/L (5-15) Blood Urea Nitrogen 6 mg/dL (7-18) L Creatinine 0.9 MG/DL (0.55-1.30) Estimate Glomerular Filtration Rate > 60 mL/min (>60) Glucose Level 90 MG/DL (74-106) Calcium Level 9.8 MG/DL (8.5-10.1) Total Bilirubin 0.3 MG/DL (0.2-1.0) Aspartate Amino Transferase (AST) 16 U/L (15-37) Alanine Aminotransferase (ALT) 27 U/L (12-78) Alkaline Phosphatase 43 U/L (46-116) L Total Protein 8.3 G/DL (6.4-8.2) H Albumin 3.8 G/DL (3.4-5.0) Globulin 4.5 g/dL Albumin/Globulin Ratio 0.8 (1.0-2.7) L Lipase 106 U/L (73-393) Human Chorionic Gonadotropin, Quant < 1 mIU/mL (1-6) L Last Vital Signs Date Time Temp Pulse Resp B/P (MAP) Pulse Ox O2 Delivery O2 Flow Rate FiO2 04/06/17 20:43 98.2 96 12 114/78 99 Room Air Disposition: HOME, SELF-CARE Condition: Improved Jennifer Guerrero M.D. Apr 06, 2017 22:13
[2017-04-06 22:18] LABS: BACTERIA,URINE FEW /HPF; SQUAMOUS EPITHELIAL CELL,UR FEW /LPF (NONE/OCC)
[2017-04-06 22:43] VITALS: BP 119/75
[2017-04-06 22:44] LABS: BASOPHILS % (AUTO) 0.5 % (0.0-2.0); EOSINOPHILS % (AUTO) 3.6 % (0.0-3.0); LYMPHOCYTES % (AUTO) 17.1 % (20.0-45.0); MEAN CORPUSCULAR HEMOGLOBIN 23.5 PG (27.0-31.0); MEAN CORPUSCULAR HGB CONC 28.6 G/DL (32.0-36.0); MEAN CORPUSCULAR VOLUME 82 FL (80-99); MEAN PLATELET VOLUME 7.5 FL (6.5-10.1); MONOCYTES % (AUTO) 4.9 % (1.0-10.0); PLATELET COUNT 282 K/UL (150-450); RED BLOOD COUNT 5.01 M/UL (4.20-5.40); RED CELL DISTRIBUTION WIDTH 16.2 % (11.6-14.8)
[2017-04-06 22:58] LABS: ANION GAP 8 mmol/L (5-15); CALCIUM 9.8 MG/DL (8.5-10.1); CARBON DIOXIDE 28 MMOL/L (21-32); CHLORIDE 105 MMOL/L (98-107); CREATININE 0.9 MG/DL (0.55-1.30); GLOMERULAR FILTRATION RATE > 60 mL/min (>60); POTASSIUM 3.4 MMOL/L (3.5-5.1); SODIUM 141 MMOL/L (136-145)
[2017-04-06 23:02] LABS: ALANINE AMINOTRANSFERASE 27 U/L (12-78); ALBUMIN/GLOBULIN RATIO 0.8 (1.0-2.7); ASPARTATE AMINO TRANSFERASE 16 U/L (15-37); LIPASE 106 U/L (73-393); TOTAL PROTEIN 8.3 G/DL (6.4-8.2)
[2017-04-06 23:45] VITALS: BP 125/71
[2017-04-06] MEDS ORDERED: Acetaminophen 500mg (ES) tab ORAL ONE (23:45)
== END 2017-04-06 23:45 | disposition home or self-care (01) ==
LOC: EMR 23:45
DX: N92.0 Excessive and frequent menstruation with regular cycle (principal); R10.9 Unspecified abdominal pain; Z88.6 Allergy status to analgesic agent
CPT/HCPCS: 36415; 80053; 81003; 81025; 83690; 84702; 85025; 86850; 86900; 86901; 99284

== ENCOUNTER 2017-10-20 08:50 | Emergency (ER) | payer SELFPAY ==
[~2017-10-20] VITALS: Ht 160 cm; Wt 99.8 kg
[2017-10-20 09:05] VITALS: BP 135/105
[2017-10-20] MEDS ORDERED: ONDANSETRON ODT4 MG BC (09:29)
[2017-10-20] MEDS ORDERED: SUDAFED PE PRE1 EACH PO (09:29)
[2017-10-20 09:40] VITALS: BP 135/105
--- NOTE | 2017-10-20 10:02 | Emergency Room Report ---
History of Present Illness General Chief Complaint: Vomiting Source: Patient Present Illness HPI 26-year-old female presents ED complaining of runny nose, cough, congestion, vomiting 3 days. States pain is throbbing, 10 out of 10, nonradiating. Notes sore throat. Afebrile. Notes vomiting 3. Denies sick contacts or recent travel. No other aggravating relieving factors. Denies any other associated symptoms Allergies: Coded Allergies: ASPIRIN (Verified Allergy, Unknown, 04/18/12) IBUPROFEN (Verified Allergy, Unknown, 04/13/15) Patient History Past Surgical History: none Pertinent Family History: none Social History: Denies: smoking, alcohol use, drug use Last Menstrual Period: 10/16/17 Now: No : 1 Para: 1 Immunizations: UTD Reviewed Nursing Documentation: PMH: Agreed; PSxH: Agreed Review of Systems All Other Systems: negative except mentioned in HPI Physical Exam Vital Signs Date Time Temp Pulse Resp B/P (MAP) Pulse Ox O2 Delivery O2 Flow Rate FiO2 10/20/17 08:59 98.5 96 18 141/92 100 98.4 10/20/17 09:05 Room Air Sp02 EP Interpretation: reviewed, normal General Appearance: no apparent distress, alert, GCS 15, non-toxic Head: normocephalic, atraumatic Eyes: bilateral eye normal inspection, bilateral eye PERRL ENT: hearing grossly normal, normal pharynx, no angioedema, normal voice Neck: full range of motion, supple/symm/no masses Respiratory: chest non-tender, lungs clear, normal breath sounds, speaking full sentences Cardiovascular #1: regular rate, rhythm, no edema Cardiovascular #2: 2+ carotid (R), 2+ carotid (L), 2+ radial (R), 2+ radial (L) , 2+ dorsalis pedis (R), 2+ dorsalis pedis (L) Gastrointestinal: normal bowel sounds, non tender, soft, non-distended, no guarding, no rebound Rectal: deferred Genitourinary: normal inspection, no CVA tenderness Musculoskeletal: back normal, gait/station normal, normal range of motion, non- tender Neurologic: alert, oriented x3, responsive, motor strength/tone normal, sensory intact, speech normal Psychiatric: judgement/insight normal, memory normal, mood/affect normal, no suicidal/homicidal ideation Reflexes: 3+ bicep (R), 3+ bicep (L), 3+ tricep (R), 3+ tricep (L), 3+ knee (R) , 3+ knee (L) Skin: normal color, no rash, warm/dry, well hydrated Lymphatic: no adenopathy Medical Decision Making Diagnostic Impression: Primary Impression: Upper respiratory infection Qualified Codes: J06.9 - Acute upper respiratory infection, unspecified ER Course Hospital Course 26-year-old female presents to ED complaining of cough, runny nose, sore throat , bodyaches Differential diagnoses include: URI, pharyngitis, otitis media, asthma Clinical course Patient placed on stretcher. After initial history, physical exam reveals a young female in no acute distress. Bilateral TM unremarkable. No pharyngeal erythema. No tonsillar exudates. No lymphadenopathy. lungs clear. abdomen soft. Clinical findings consistent with URI. Reassurance given. given zofran in ED Diagnosis - URI Stable and discharged home with Rx sudafed, zofran. Instructed to followup with PMD. Return to ED if symptoms recur or worsen Last Vital Signs Date Time Temp Pulse Resp B/P (MAP) Pulse Ox O2 Delivery O2 Flow Rate FiO2 10/20/17 09:40 98.3 95 18 135/105 100 Room Air Status: improved Disposition: HOME, SELF-CARE Condition: Stable Scripts Ondansetron Odt* (ZOFRAN ODT*) 4 Mg Tab.rapdis 4 MG BC EVERY 6 HOURS PRN for Nausea & Vomiting, #30 TAB 0 Refills Prov: Cosme Bonilla MD 10/20/17 D-Methorphan/PE/Acetaminophen (Sudafed PE Pressure+Pain+Cough) 1 Each Tablet 1 EACH PO Q6HR, #30 TAB Prov: Cosme Bonilla MD 10/20/17 Departure Forms: Return to Work Return to Work Date: Oct 24, 2017 Work Restrictions: None Patient Instructions: Upper Respiratory Infection, Adult, [id number] Cosme Bonilla MD Oct 20, 2017 10:02
== END 2017-10-20 09:42 | disposition home or self-care (01) ==
LOC: EMR 09:15
DX: J06.9 Acute upper respiratory infection, unspecified (principal); Z88.6 Allergy status to analgesic agent
CPT/HCPCS: 96372; 99284; J2405

== ENCOUNTER 2017-10-30 09:53 | Inpatient (IN) | payer MEDICAID ==
[~2017-10-30] VITALS: Ht 160 cm; Wt 99.8 kg
[~2017-10-30 09:53] MED LIST changes: +ONDANSETRON ODT4 MG BC; +SUDAFED PE PRE1 EACH PO
[2017-10-30 10:04] VITALS: BP 122/84
[2017-10-30] MEDS ORDERED: Morphine Sulfate 4mg/ml Inj IVP ONE ×3 (11:00→13:30)
[2017-10-30 11:12] LABS: BASOPHILS % (AUTO) 0.7 % (0.0-2.0); HEMATOCRIT 39.8 % (37.0-47.0); HEMOGLOBIN 12.5 G/DL (12.0-16.0); LYMPHOCYTES % (AUTO) 19.9 % (20.0-45.0); MEAN CORPUSCULAR VOLUME 80 FL (80-99); MONOCYTES % (AUTO) 4.7 % (1.0-10.0); NEUTROPHILS % (AUTO) 71.7 % (45.0-75.0); PLATELET COUNT 375 K/UL (150-450); RED BLOOD COUNT 4.96 M/UL (4.20-5.40); RED CELL DISTRIBUTION WIDTH 14.8 % (11.6-14.8); WHITE BLOOD COUNT 10.6 K/UL (4.8-10.8)
[2017-10-30 11:18] LABS: ANION GAP 15 mmol/L (5-15); BLOOD UREA NITROGEN 7 mg/dL (7-18); CALCIUM 9.7 MG/DL (8.5-10.1); CARBON DIOXIDE 21 MMOL/L (21-32); CHLORIDE 104 MMOL/L (98-107); CREATININE 0.9 MG/DL (0.55-1.30); INR 1.1 (0.9-1.1); POTASSIUM 3.4 MMOL/L (3.5-5.1); SODIUM 140 MMOL/L (136-145)
[2017-10-30 11:22] LABS: ALANINE AMINOTRANSFERASE 19 U/L (12-78); ALBUMIN 3.9 G/DL (3.4-5.0); ALBUMIN/GLOBULIN RATIO 0.9 (1.0-2.7); ALKALINE PHOSPHATASE 38 U/L (46-116); ASPARTATE AMINO TRANSFERASE 14 U/L (15-37); BILIRUBIN,TOTAL 0.2 MG/DL (0.2-1.0)
[2017-10-30 12:28] LABS: APPEARANCE,URINE CLEAR; BILIRUBIN, URINE NEGATIVE (NEGATIVE); GLUCOSE, URINE (UA) NEGATIVE (NEGATIVE); KETONES,URINE NEGATIVE (NEGATIVE); LEUKOCYTE ESTERASE ,URINE 1+ (NEGATIVE); NITRITE,URINE NEGATIVE (NEGATIVE); PH,URINE 8 (4.5-8.0); PROTEIN,URINE 1+ (NEGATIVE); UROBILINOGEN,URINE NORMAL MG/DL (0.0-1.0)
[2017-10-30 12:30] LABS: COLOR,URINE YELLOW
[2017-10-30] MEDS ORDERED: Gastrograffin 30ml ORAL PRN (13:30)
[2017-10-30] MEDS ORDERED: Isovue-300 100ml vial INJ PRN (13:30)
[2017-10-30 14:04] VITALS: BP 126/75
[2017-10-30 16:03] VITALS: BP 107/58
[2017-10-30 16:28] VITALS: BP 106/73
--- NOTE | 2017-10-30 16:34 | Emergency Room Report ---
History of Present Illness General Chief Complaint: Abdominal Pain Source: Patient Present Illness HPI Patient presents with severe epigastric pain and vomiting. She's vomited up some blood with severe retching that's been going on for several days - at least 1 week. She denies any fevers or chills. No melena, hematochezia. The pain is epigastric and does not radiate - burning pain 10/10, constant. She feels weak. No medicines taken for the pain. The patient had an IUD placed last month. It's apparently hormonally active. She denies any suprapubic pain at this time and no discharge. There has been some bleeding since placement. No dysuria, discharge. No rashes. She states she has never had this type of pain before. No extremity pain. Allergies: Coded Allergies: ASPIRIN (Verified Allergy, Unknown, 04/18/12) IBUPROFEN (Verified Allergy, Unknown, 04/13/15) Patient History Past Medical History: see triage record Social History: Reports: alcohol use - prior; Denies: smoking Social History Narrative with mother Last Menstrual Period: 10/23/17 Now: No Reviewed Nursing Documentation: PMH: Agreed; PSxH: Agreed Nursing Documentation-PMH Past Medical History: No History, Except For Review of Systems All Other Systems: negative except mentioned in HPI Physical Exam Vital Signs Date Time Temp Pulse Resp B/P (MAP) Pulse Ox O2 Delivery O2 Flow Rate FiO2 10/30/17 09:57 98.6 86 18 122/84 98 Room Air 98.6 Sp02 EP Interpretation: reviewed, normal General Appearance: mild distress Head: normocephalic Eyes: bilateral eye normal inspection, bilateral eye PERRL ENT: moist mucus membranes Neck: supple Respiratory: lungs clear, normal breath sounds Cardiovascular #1: regular rate, rhythm Cardiovascular #2: 2+ radial (R) Gastrointestinal: normal inspection, normal bowel sounds, no mass, non- distended, no rebound, tenderness - epigastric Musculoskeletal: back normal, gait/station normal, normal range of motion Neurologic: alert, oriented x3, grossly normal Psychiatric: depressed affect Skin: normal inspection, warm/dry Medical Decision Making Diagnostic Impression: Primary Impression: Abdominal pain Qualified Codes: R10.13 - Epigastric pain Additional Impression: IUD complications unrelated to abdominal pain ER Course Patient presents with 1 week of epigastric pain and vomiting with allegedly vomiting blood. DDx: gastritis, gall bladder disease, pancreatitis, GERD, Maria Del Rosario Reyez tear, Boorhave's, PUD. Evaluation with labs and observation. Will treat with IV hydration and analgesia with pepcid. Antibiotics not indicated. Initial dose of morphine "did nothing". Repeat and increased dosing. Labs with normal CBC. CMP with slightly low K. Lipase normal. Some improvement in pain. Abdomen soft and not surgical. Due to severity of pain CT abdomen ordered. Due to uncontrolled pain and vomiting, admit medical floor Dr. Alcaraz. Pending CT - though not surgical abdomen. Based on CT, I requested Dr. Madison's associate to consult for Data Warehouse Consultant. She agreed. Laboratory Tests Test 10/30/17 10:12 10/30/17 11:59 White Blood Count 10.6 K/UL (4.8-10.8) Red Blood Count 4.96 M/UL (4.20-5.40) Hemoglobin 12.5 G/DL (12.0-16.0) Hematocrit 39.8 % (37.0-47.0) Mean Corpuscular Volume 80 FL (80-99) Mean Corpuscular Hemoglobin 25.2 PG (27.0-31.0) L Mean Corpuscular Hemoglobin Concent 31.4 G/DL (32.0-36.0) L Red Cell Distribution Width 14.8 % (11.6-14.8) Platelet Count 375 K/UL (150-450) Mean Platelet Volume 8.1 FL (6.5-10.1) Neutrophils (%) (Auto) 71.7 % (45.0-75.0) Lymphocytes (%) (Auto) 19.9 % (20.0-45.0) L Monocytes (%) (Auto) 4.7 % (1.0-10.0) Eosinophils (%) (Auto) 3.0 % (0.0-3.0) Basophils (%) (Auto) 0.7 % (0.0-2.0) Prothrombin Time 11.6 SEC (9.30-11.50) H Prothrombin Time INR 1.1 (0.9-1.1) PTT 28 SEC (23-33) Sodium Level 140 MMOL/L (136-145) Potassium Level 3.4 MMOL/L (3.5-5.1) L Chloride Level 104 MMOL/L (98-107) Carbon Dioxide Level 21 MMOL/L (21-32) Anion Gap 15 mmol/L (5-15) Blood Urea Nitrogen 7 mg/dL (7-18) Creatinine 0.9 MG/DL (0.55-1.30) Estimate Glomerular Filtration Rate > 60 mL/min (>60) Glucose Level 130 MG/DL (74-106) H Calcium Level 9.7 MG/DL (8.5-10.1) Total Bilirubin 0.2 MG/DL (0.2-1.0) Aspartate Amino Transferase (AST) 14 U/L (15-37) L Alanine Aminotransferase (ALT) 19 U/L (12-78) Alkaline Phosphatase 38 U/L (46-116) L Total Protein 8.3 G/DL (6.4-8.2) H Albumin 3.9 G/DL (3.4-5.0) Globulin 4.4 g/dL Albumin/Globulin Ratio 0.9 (1.0-2.7) L Lipase 84 U/L (73-393) Urine Color Yellow Urine Appearance Clear Urine pH 8 (4.5-8.0) Urine Specific [place] 1.010 (1.005-1.035) Urine Protein 1+ (NEGATIVE) H Urine Glucose (UA) Negative (NEGATIVE) Urine Ketones Negative (NEGATIVE) Urine Occult Blood Negative (NEGATIVE) Urine Nitrite Negative (NEGATIVE) Urine Bilirubin Negative (NEGATIVE) Urine Urobilinogen Normal MG/DL (0.0-1.0) Urine Leukocyte Esterase 1+ (NEGATIVE) H Urine RBC 0-2 /HPF (0 - 2) Urine WBC 2-4 /HPF (0 - 2) Urine Squamous Epithelial Cells Occasional /LPF Urine Bacteria Few /HPF (NONE) Urine HCG, Qualitative Negative (NEGATIVE) CT/MRI/US Diagnostic Results CT/MRI/US Diagnostic Results : Imaging Test Ordered: abd pelvis Impression IUD anterior wall of retroflexed uterus Last Vital Signs Date Time Temp Pulse Resp B/P (MAP) Pulse Ox O2 Delivery O2 Flow Rate FiO2 10/30/17 16:28 98.6 67 18 106/73 (84) 100 98.6 10/30/17 16:03 Room Air Status: improved Disposition: ADMITTED INPATIENT Condition: Serious Referrals: NON PHYSICIAN (PCP) Flo Chen M.D. Oct 30, 2017 16:34
[2017-10-30] MEDS ORDERED: Morphine Sulfate 4mg/ml Inj IVP PRN ×2 (17:15→22:00)
[2017-10-30] MEDS: D5NS 1,000 ML IV SCH (17:38)
--- NOTE | 2017-10-30 19:02 | Consultation ---
Consult Note Consult Note GYNECOLOGY CONSULT NOTE CC: IUD embedded in myometrium HPI: Ms. Piedra is a 26yo who was admitted from the ED for RUQ pain, n/v/ d that initially began 1w ago, resolved, and has now recurred but worse per patient. Imaging obtained in the ED noted IUD in correct place, embedded into anterior uterus (per ED physician over the phone - imaging reports unavailable at the time of this consult). NURSE RECEPTIONIST consulted for embedded IUD. She reports that she has been bleeding since the IUD was placed, with passage of clots. She is currently bleeding like a period. She had it placed at [facility]. No other NURSE RECEPTIONIST issues. IUD unlikely cause of patient's current clinical state. PMH: Denies DM, HTN, asthma, thyroid dz PSH: section 9y ago OBHx: - C/S x 1 - 9y ago, TAB x 2 (2015, 2017) after her last TAB the IUD was placed. GYNHx: Last Pap 6mo ago, no hx abnl. ?Fibroids, no cysts. Mirena? IUD placed 6- 7mo ago MEDS: None ALLERGIES: Aspirin - hives SOCHx: Denies T/E/D, lives with her grandmother and her daughter FAMHx: Grandmother with breast CA at 75, living. No hx of VTE, IA, CVA, or other CA VITALS: Tmax 98.6, BP 106/73, P 67, RR 18, O2 100% RA EXAM: Gen: NAD, appears mildly uncomfortable HEENT: MMM, OP clear Neuro: CN 2-12 intact grossly CV: RRR Pulm: No increased work of breathing, able to speak in full sentences Abd: Soft, obese, NTND in lower quadrants bilaterally Pelvic: Deferred Ext: No calf TTP MSK: FROM LABS: Laboratory Tests Test 10/30/17 10:12 10/30/17 11:59 White Blood Count 10.6 K/UL (4.8-10.8) Red Blood Count 4.96 M/UL (4.20-5.40) Hemoglobin 12.5 G/DL (12.0-16.0) Hematocrit 39.8 % (37.0-47.0) Mean Corpuscular Volume 80 FL (80-99) Mean Corpuscular Hemoglobin 25.2 PG (27.0-31.0) L Mean Corpuscular Hemoglobin Concent 31.4 G/DL (32.0-36.0) L Red Cell Distribution Width 14.8 % (11.6-14.8) Platelet Count 375 K/UL (150-450) Mean Platelet Volume 8.1 FL (6.5-10.1) Neutrophils (%) (Auto) 71.7 % (45.0-75.0) Lymphocytes (%) (Auto) 19.9 % (20.0-45.0) L Monocytes (%) (Auto) 4.7 % (1.0-10.0) Eosinophils (%) (Auto) 3.0 % (0.0-3.0) Basophils (%) (Auto) 0.7 % (0.0-2.0) Prothrombin Time 11.6 SEC (9.30-11.50) H Prothrombin Time INR 1.1 (0.9-1.1) PTT 28 SEC (23-33) Sodium Level 140 MMOL/L (136-145) Potassium Level 3.4 MMOL/L (3.5-5.1) L Chloride Level 104 MMOL/L (98-107) Carbon Dioxide Level 21 MMOL/L (21-32) Anion Gap 15 mmol/L (5-15) Blood Urea Nitrogen 7 mg/dL (7-18) Creatinine 0.9 MG/DL (0.55-1.30) Estimate Glomerular Filtration Rate > 60 mL/min (>60) Glucose Level 130 MG/DL (74-106) H Calcium Level 9.7 MG/DL (8.5-10.1) Total Bilirubin 0.2 MG/DL (0.2-1.0) Aspartate Amino Transferase (AST) 14 U/L (15-37) L Alanine Aminotransferase (ALT) 19 U/L (12-78) Alkaline Phosphatase 38 U/L (46-116) L Total Protein 8.3 G/DL (6.4-8.2) H Albumin 3.9 G/DL (3.4-5.0) Globulin 4.4 g/dL Albumin/Globulin Ratio 0.9 (1.0-2.7) L Lipase 84 U/L (73-393) Urine Color Yellow Urine Appearance Clear Urine pH 8 (4.5-8.0) Urine Specific [place] 1.010 (1.005-1.035) Urine Protein 1+ (NEGATIVE) H Urine Glucose (UA) Negative (NEGATIVE) Urine Ketones Negative (NEGATIVE) Urine Occult Blood Negative (NEGATIVE) Urine Nitrite Negative (NEGATIVE) Urine Bilirubin Negative (NEGATIVE) Urine Urobilinogen Normal MG/DL (0.0-1.0) Urine Leukocyte Esterase 1+ (NEGATIVE) H Urine RBC 0-2 /HPF (0 - 2) Urine WBC 2-4 /HPF (0 - 2) Urine Squamous Epithelial Cells Occasional /LPF Urine Bacteria Few /HPF (NONE) Urine HCG, Qualitative Negative (NEGATIVE) Assessment/Plan 26yo admitted with likely gastroenteritis vs gastritis, noted to have IUD embedded in myometrium - Discussed that the embedded IUD could be the source of her bleeding, recommend returning to [facility] for removal and replacement under ultrasound guidance - Discussed BC options, patient does not want another IUD - however, given her 2 TABs in the last 3 years I strongly recommend BC - IUD unrelated to her current GI symptoms, given it was placed >6mo ago and this is a new problem that arose over the last 1-2 weeks - Discussed possible removal in-house, but given that it is embedded in the wall of her uterus I strongly recommend removal in the office with ultrasound and additional instruments available - Discussed possible adjustment of IUD, patient wants it out - Will return to [facility] for removal and new BC start Thank you for this interesting consult. Signed: MD Crow Skelton Carla M.D. Oct 30, 2017 19:02
[2017-10-30 20:00] VITALS: BP 108/65
[2017-10-30] MEDS: Hydromorphone 0.5mg/0.5ml inj SUBQ PRN (22:15)
[2017-10-31] VITALS: BP 95/52
[2017-10-31] MEDS: D5NS 1,000 ML IV SCH ×3 (01:48→17:53)
[2017-10-31 04:00] VITALS: BP 120/75
[2017-10-31 08:00] VITALS: BP 142/89
[2017-10-31] MEDS: Pantoprazole Inj IVP SCH (08:08)
[2017-10-31 09:02] LABS: BASOPHILS % (AUTO) 0.7 % (0.0-2.0); EOSINOPHILS % (AUTO) 2.7 % (0.0-3.0); HEMATOCRIT 33.1 % (37.0-47.0); HEMOGLOBIN 10.3 G/DL (12.0-16.0); LYMPHOCYTES % (AUTO) 23.7 % (20.0-45.0); MEAN CORPUSCULAR VOLUME 82 FL (80-99); MONOCYTES % (AUTO) 5.7 % (1.0-10.0); NEUTROPHILS % (AUTO) 67.3 % (45.0-75.0); PLATELET COUNT 298 K/UL (150-450); RED BLOOD COUNT 4.05 M/UL (4.20-5.40); WHITE BLOOD COUNT 7.5 K/UL (4.8-10.8)
[2017-10-31 09:46] LABS: ANION GAP 7 mmol/L (5-15); BLOOD UREA NITROGEN 6 mg/dL (7-18); CALCIUM 8.2 MG/DL (8.5-10.1); CARBON DIOXIDE 23 MMOL/L (21-32); CHLORIDE 109 MMOL/L (98-107); CREATININE 0.8 MG/DL (0.55-1.30); POTASSIUM 3.6 MMOL/L (3.5-5.1); SODIUM 139 MMOL/L (136-145)
--- NOTE | 2017-10-31 10:25 | Diagnostic Imaging Report ---
Indication: Abdominal pain Technique: Continuous helical transaxial imaging of the abdomen and pelvis was obtained from the lung bases to the pubic symphysis during intravenous contrast administration. Coronal 2-D reformats were also obtained. Study obtained in a Siemens sensation [address] Automatic Exposure Control was utilized. Total Dose length Product (DLP): 978.[address] Dose Index Volume (CTDIvol): 17.73 mGy Comparison: December 25, 2014 Findings: Lung bases are clear. The liver, gallbladder, pancreas, spleen, kidneys appear normal. There is no evidence of bowel obstruction, free fluid or free air. Intrauterine device is present. Part of the intrauterine device appears to have penetrated the anterior myometrial wall of the uterus to the level of the serosa. The uterus is retroverted. IMPRESSION: IUD as described above. One of the limbs of the IUD appears to be penetrating anterior wall the uterus. Correlate clinically. The CT scanner at [facility] is accredited by the [employer] and the scans are performed using dose optimization techniques as appropriate to a performed exam including Automatic Exposure control.
[2017-10-31 12:00] VITALS: BP 137/84
--- NOTE | 2017-10-31 13:59 | Consultation ---
History of Present Illness General Date patient seen: Oct 31, 2017 Chief Complaint: Abdominal Pain Reason for Consultation: abdominal pain Present Illness HPI 26year old female presented to ED with complaints of abdominal pain for 2 days. as per patient she was well until two days ago when she began to have worsening epigastric and RUQ abdominal discomfort. no n/v/f/c. pain sharp and constant. patient vague about history and in description of pain. for young age is a poor historian. is laying in bed comfortable but complaints of pain. CT demonstrated no acute abnormality except for IUD displacement. Surgery called to evaluate for abdominal pain. patient seen, chart reviewed, patient examined. normal BM's. passing flatus. Allergies: Coded Allergies: ASPIRIN (Verified Allergy, Unknown, 04/18/12) IBUPROFEN (Verified Allergy, Unknown, 04/13/15) Medication History Scheduled D-Methorphan/PE/Acetaminophen (Sudafed PE Pressure+Pain+Cough), 1 EACH PO Q6HR Doxycycline Hyclate* (Vibramycin*), 100 MG ORAL EVERY 12 HOURS No Known Medications* (NKM - No Known Medications*), 0 ., (Reported) Scheduled PRN Ondansetron Odt* (Zofran Odt*), 4 MG BC EVERY 6 HOURS PRN for Nausea & Vomiting Patient History History Provided By: Patient, Medical Record, PMD Healthcare decision maker Resuscitation status Full Code Advanced Directive on File No Past Medical/Surgical History Past Medical/Surgical History: (1) Acute otitis externa (2) Dental caries (3) Viral pharyngitis (4) Viral sinusitis (5) Alcohol Abuse (6) Gastritis (7) Abdominal pain (8) Vomiting (9) [id number] (10) UTI (lower urinary tract infection) (11) otitis media (12) URI (13) VIRAL SYNDROME (14) UTI (15) Exudative pharyngitis (16) head injury (17) pharyngitis (18) post concussive syndrome (19) Diarrhea (20) Vomiting (21) Headache (22) Headache (23) Infected insect bite of right leg (24) Colitis (25) Colitis (26) Upper respiratory infection (27) Myalgia (28) Upper respiratory symptom (29) Upper respiratory infection (30) UTI (lower urinary tract infection) (31) Trichomonal infection (32) Dysfunctional uterine bleeding (33) Dysfunctional uterine bleeding (34) Vaginal itching (35) Pleurisy (36) Bronchitis (37) Bronchospasm (38) Pyelonephritis (39) Ankle sprain (40) Dysmenorrhea (41) Abdominal pain Review of Systems All Other Systems: negative except mentioned in HPI Physical Exam General Appearance: no apparent distress, alert Lines, tubes and drains: peripheral HEENT: mucous membranes moist, PERRL Neck: normal inspection Respiratory/Chest: normal breath sounds, no respiratory distress, no accessory muscle use Cardiovascular/Chest: normal rate Abdomen: soft, no organomegaly, no mass, tender - right subcostal rib/muscle pain Extremities: non-tender Skin Exam: normal pigmentation, warm/dry Neurologic: alert, oriented x 3 Last 24 Hour Vital Signs Date Time Temp Pulse Resp B/P (MAP) Pulse Ox O2 Delivery O2 Flow Rate FiO2 10/31/17 08:30 Room Air 10/31/17 04:00 98.2 69 19 120/75 (90) 100 98.2 10/31/17 00:00 98.2 68 19 95/52 (66) 97 98.2 10/30/17 21:00 Room Air 10/30/17 20:00 99.2 62 19 108/65 (79) 100 99.2 10/30/17 18:07 98.6 10/30/17 17:37 98.6 10/30/17 16:53 Room Air 10/30/17 16:35 98.6 67 18 106/73 100 Room Air 98.6 10/30/17 16:28 98.6 67 18 106/73 (84) 100 98.6 10/30/17 16:03 97.5 69 21 107/58 100 Room Air 97.5 10/30/17 14:04 97.5 84 14 126/75 100 Room Air 97.5 Intake and Output 10/30/17 10/31/17 19:00 07:00 Intake Total 120 ml 1320 ml Output Total 0 ml Balance 120 ml 1320 ml Intake IV Total 120 ml 1320 ml Output Urine Total 0 ml # Voids 2 # Bowel Movements 1 Laboratory Tests Test 10/31/17 07:40 White Blood Count 7.5 K/UL (4.8-10.8) Red Blood Count 4.05 M/UL (4.20-5.40) L Hemoglobin 10.3 G/DL (12.0-16.0) L Hematocrit 33.1 % (37.0-47.0) L Mean Corpuscular Volume 82 FL (80-99) Mean Corpuscular Hemoglobin 25.4 PG (27.0-31.0) L Mean Corpuscular Hemoglobin Concent 31.1 G/DL (32.0-36.0) L Red Cell Distribution Width 15.0 % (11.6-14.8) H Platelet Count 298 K/UL (150-450) Mean Platelet Volume 7.9 FL (6.5-10.1) Neutrophils (%) (Auto) 67.3 % (45.0-75.0) Lymphocytes (%) (Auto) 23.7 % (20.0-45.0) Monocytes (%) (Auto) 5.7 % (1.0-10.0) Eosinophils (%) (Auto) 2.7 % (0.0-3.0) Basophils (%) (Auto) 0.7 % (0.0-2.0) Sodium Level 139 MMOL/L (136-145) Potassium Level 3.6 MMOL/L (3.5-5.1) Chloride Level 109 MMOL/L (98-107) H Carbon Dioxide Level 23 MMOL/L (21-32) Anion Gap 7 mmol/L (5-15) Blood Urea Nitrogen 6 mg/dL (7-18) L Creatinine 0.8 MG/DL (0.55-1.30) Estimat Glomerular Filtration Rate > 60 mL/min (>60) Glucose Level 123 MG/DL (74-106) H Hemoglobin A1c 6.0 % (4.3-6.0) Calcium Level 8.2 MG/DL (8.5-10.1) L Height (Feet): 5 Height (Inches): 3.00 Weight (Pounds): 220 Medications Current Medications Medications (Trade) Dose Ordered Sig/Cece Route PRN Reason Start Time Stop Time Status Last Admin Dose Admin Dextrose/Sodium Chloride 1,000 ml @ 120 mls/hr Q8H20M IV 10/30/17 17:15 11/29/17 17:14 10/31/17 11:01 Diatrizoate Meglum/ Diatrizoate Sod (Gastrografin) 30 ml NOW PRN ORAL Radiology Procedure 10/30/17 13:30 Hydromorphone HCl (Dilaudid) 1 mg Q8H PRN SUBQ Severe Pain (Pain Scale 7-10) 10/30/17 22:00 11/06/17 21:59 10/30/17 22:15 Iopamidol (Isovue-300 100ml) 100 ml NOW PRN INJ Radiology Procedure 10/30/17 13:30 Ondansetron HCl (Zofran) 4 mg Q6H PRN IVP Nausea & Vomiting 10/30/17 17:15 11/29/17 17:14 10/30/17 17:37 Pantoprazole (Protonix) 40 mg DAILY IVP 10/31/17 09:00 11/30/17 08:59 10/31/17 08:08 Assessment/Plan Problem List: (1) Abdominal pain Assessment & Plan: 26F with abdominal pain x 2 days. afebrile, HD stable, labs okay, CT okay. on exam mainly has lower right subcostal tenderness. likely costochondritis -will order ultrasound to ensure no biliary etiology given location of pain and history. -no acute surgical intervention planned -okay for diet after ultrasound -will follow with recs. thank you for this consultation. Qualifiers: Qualified Codes: R10.11 - Right upper quadrant pain Status: stable AlissaChristian Oct 31, 2017 13:59
[2017-10-31 16:00] VITALS: BP 109/66
[2017-10-31] MEDS: Hydromorphone 0.5mg/0.5ml inj SUBQ PRN (16:13)
[2017-10-31 20:00] VITALS: BP_SYST 110; BP_SYST 124; BP_DIAS 47; BP_DIAS 74
[2017-10-31] MEDS ORDERED: Norco 5mg/325mg tab ORAL PRN (20:45)
--- NOTE | 2017-10-31 21:15 | History and Physical Report ---
DATE OF ADMISSION: 10/30/2017 SOURCE OF INFORMATION: The patient and EMR. HISTORY OF PRESENT ILLNESS: The patient is a 26-year-old female, presented with abdominal pain. The patient describes this pain as severe in the right upper quadrant, worsened by taking deep breaths. The patient denies any nausea or vomiting. Denies any diarrhea or constipation. The patient denies any fever or chills. The pain initiated for about 1 or 2 days and positive for radiation to the right-sided costovertebral angle. ALLERGIES: Aspirin and ibuprofen. SOCIAL HISTORY: The patient denies any history of illicit drug use, smoking, or alcohol abuse. MEDICATIONS: Home medications including, but not limited to doxycycline. PHYSICAL EXAMINATION: VITAL SIGNS: Blood pressure 90/80, temperature 98.2 degrees, respiratory rate 18, and pulse oximetry 98% on room air. HEAD AND NECK: Atraumatic and normocephalic. CHEST: Clear to auscultation. HEART: S1 and S2. Regular rate and rhythm. ABDOMEN: Positive for tenderness in the right lower quadrant. Negative for rebound tenderness. MUSCULOSKELETAL: No gross focal motor deficit. NEUROLOGIC: The patient is awake, alert, and oriented x3. LABORATORY AND DIAGNOSTIC DATA: CT of abdomen and pelvis shows fragmentation of the IUD, otherwise unremarkable. Labs dated 10/30/2017 shows WBC 10.8, hemoglobin 12.5, and platelets of 375. Sodium 140, potassium 3.4, BUN 7, and creatinine 0.9. ASSESSMENT: 1. Abdominal pain, unknown, working in progress. 2. Fragmented IUD with penetration to the myometrium, deferred as an outpatient, per Gynecology recommendations. 3. Hypokalemia. 4. Abnormal blood sugar. 5. GI and DVT prophylaxes. PLAN OF CARE: We will check the A1c. Once cleared by Gynecology, follow up to complete the gynecology workup as an outpatient. Slava Alcaraz M.D. DR: YANET JOB#: [id number] CC:
[2017-10-31 21:21] LABS: AMYLASE 57 U/L (25-115)
[2017-11-01] VITALS: BP 128/68
[2017-11-01 04:00] VITALS: BP 150/74
[2017-11-01] MEDS: traMADol 50mg tab ORAL PRN ×2 (04:45→10:31)
[2017-11-01] MEDS: D5NS 1,000 ML IV SCH ×2 (06:18→10:37)
[2017-11-01 08:00] VITALS: BP 118/65
[2017-11-01] MEDS: Pantoprazole Inj IVP SCH (08:43)
[2017-11-01 09:02] LABS: BASOPHILS % (AUTO) 0.6 % (0.0-2.0); EOSINOPHILS % (AUTO) 2.8 % (0.0-3.0); HEMATOCRIT 33.1 % (37.0-47.0); HEMOGLOBIN 10.5 G/DL (12.0-16.0); LYMPHOCYTES % (AUTO) 27.8 % (20.0-45.0); MEAN CORPUSCULAR VOLUME 81 FL (80-99); MONOCYTES % (AUTO) 5.5 % (1.0-10.0); NEUTROPHILS % (AUTO) 63.3 % (45.0-75.0); PLATELET COUNT 308 K/UL (150-450); RED BLOOD COUNT 4.08 M/UL (4.20-5.40); RED CELL DISTRIBUTION WIDTH 14.6 % (11.6-14.8); WHITE BLOOD COUNT 8.1 K/UL (4.8-10.8)
[2017-11-01 09:39] LABS: ALANINE AMINOTRANSFERASE 36 U/L (12-78); ALBUMIN/GLOBULIN RATIO 0.8 (1.0-2.7); ALKALINE PHOSPHATASE 31 U/L (46-116); ANION GAP 7 mmol/L (5-15); ASPARTATE AMINO TRANSFERASE 21 U/L (15-37); BILIRUBIN,TOTAL 0.2 MG/DL (0.2-1.0); BLOOD UREA NITROGEN 4 mg/dL (7-18); CALCIUM 8.4 MG/DL (8.5-10.1); CARBON DIOXIDE 28 MMOL/L (21-32); CHLORIDE 106 MMOL/L (98-107); CREATININE 0.8 MG/DL (0.55-1.30); POTASSIUM 3.3 MMOL/L (3.5-5.1); SODIUM 141 MMOL/L (136-145)
--- NOTE | 2017-11-01 10:46 | General Surgery Progress Note ---
General Surgery-Progress Note Subjective Additional Comments still with generalized abdominal pain. states emesis last night. does not want food. Objective Last 24 Hour Vital Signs Date Time Temp Pulse Resp B/P (MAP) Pulse Ox O2 Delivery O2 Flow Rate FiO2 11/01/17 08:15 Room Air 11/01/17 04:00 97.9 78 18 150/74 (99) 100 97.9 11/01/17 00:00 98.1 62 19 128/68 (88) 99 98.1 10/31/17 21:00 Room Air 10/31/17 20:00 99.7 87 18 124/74 (91) 98 99.7 10/31/17 16:00 97.3 69 20 109/66 (80) 99 97.3 10/31/17 12:00 97.3 66 20 137/84 (101) 100 97.3 I&O Intake and Output 10/31/17 11/01/17 19:00 07:00 Intake Total 120 ml 960 ml Balance 120 ml 960 ml Intake IV Total 120 ml 960 ml # Voids 4 Cardiovascular: RSR Respiratory: clear Abdomen: soft, tenderness, present bowel sounds Extremities: no cyanosis Laboratory Tests Test 10/31/17 20:50 11/01/17 08:45 Amylase Level 57 U/L (25-115) Lipase 134 U/L (73-393) White Blood Count 8.1 K/UL (4.8-10.8) Red Blood Count 4.08 M/UL (4.20-5.40) L Hemoglobin 10.5 G/DL (12.0-16.0) L Hematocrit 33.1 % (37.0-47.0) L Mean Corpuscular Volume 81 FL (80-99) Mean Corpuscular Hemoglobin 25.7 PG (27.0-31.0) L Mean Corpuscular Hemoglobin Concent 31.6 G/DL (32.0-36.0) L Red Cell Distribution Width 14.6 % (11.6-14.8) Platelet Count 308 K/UL (150-450) Mean Platelet Volume 7.4 FL (6.5-10.1) Neutrophils (%) (Auto) 63.3 % (45.0-75.0) Lymphocytes (%) (Auto) 27.8 % (20.0-45.0) Monocytes (%) (Auto) 5.5 % (1.0-10.0) Eosinophils (%) (Auto) 2.8 % (0.0-3.0) Basophils (%) (Auto) 0.6 % (0.0-2.0) Sodium Level 141 MMOL/L (136-145) Potassium Level 3.3 MMOL/L (3.5-5.1) L Chloride Level 106 MMOL/L (98-107) Carbon Dioxide Level 28 MMOL/L (21-32) Anion Gap 7 mmol/L (5-15) Blood Urea Nitrogen 4 mg/dL (7-18) L Creatinine 0.8 MG/DL (0.55-1.30) Estimat Glomerular Filtration Rate > 60 mL/min (>60) Glucose Level 124 MG/DL (74-106) H Calcium Level 8.4 MG/DL (8.5-10.1) L Total Bilirubin 0.2 MG/DL (0.2-1.0) Aspartate Amino Transf (AST/SGOT) 21 U/L (15-37) Alanine Aminotransferase (ALT/SGPT) 36 U/L (12-78) Alkaline Phosphatase 31 U/L (46-116) L Total Protein 6.6 G/DL (6.4-8.2) Albumin 3.0 G/DL (3.4-5.0) L Globulin 3.6 g/dL Albumin/Globulin Ratio 0.8 (1.0-2.7) L Plan Problems: (1) Abdominal pain Assessment & Plan: 26F with abdominal pain x 2 days. afebrile, HD stable, labs okay, CT okay. on exam mainly has lower right subcostal tenderness. likely costochondritis -Pending Ultrasound Abdomen -no acute surgical intervention planned -okay for diet after ultrasound -will follow with recs. thank you for this consultation. Christian Maxwell Nov 01, 2017 10:46
[2017-11-01 12:00] VITALS: BP 141/86
[2017-11-01] MEDS ORDERED: D5NS 1000ml IV ONE (12:20)
--- NOTE | 2017-11-01 13:38 | Diagnostic Imaging Report ---
Indication: pain Technique: US ABD Complete Comparison: No prior abdominal ultrasound available for comparison. Findings: Images of the pancreatic head are grossly unremarkable. The body and tail are not seen. Imaged portions of the abdominal aorta are normal in caliber. IVC is unremarkable. Liver is mildly enlarged with the right hepatic lobe measuring 19.6 cm in length. Hepatic contour is smooth. Hepatic echogenicity is homogeneous. No focal hepatic mass lesion is appreciated sonographically. Gallbladder is unremarkable in appearance. No appreciable cholelithiasis or gallbladder sludge. No gallbladder wall thickening or pericholecystic fluid. Sonographic Corrales sign reported as negative. No intrahepatic or extrahepatic biliary duct dilatation. Common bile duct measures approximately 2 mm in diameter. Kidneys are symmetric in size and demonstrate normal echogenicity. Punctate echogenic focus identified in the midpole the left kidney may be related to punctate nonobstructing stone versus prominent sinus fat. No evidence of hydronephrosis bilaterally. Spleen is normal in size. There is no ascites. IMPRESSION: Mild hepatomegaly. Punctate echogenic focus identified in the left kidney may be related to punctate nonobstructing stone versus prominent sinus fat. Questionable punctate attenuation focus versus artifact in this region on CT (series 3 image #37). No evidence of hydronephrosis bilaterally.
--- NOTE | 2017-11-03 10:13 | Discharge Summary ---
Discharge Summary Discharge Summary _ DATE OF ADMISSION: 10/30/2017 DATE OF DISCHARGE: 11/01/2017 REASON FOR ADMISSION: 26 years old female presented to emergency department with severe epigastric pain ,nonradiating, lasting for few days . Patient also reported vomiting. Patient seen some blood with retching ,but no melena, no hematochezia. She denied fever, chills No dysuria Patient had intrauterine device placed few months ago. Upon evaluation vital signs were stable, no leukocytosis ,hemoglobin 12.5 , hematocrit 39.8 Potassium 3.4 Urinalysis was negative for UTI test was negative. Elevated blood glucose. Electrolytes, lipase, liver enzymes were all within normal limits. CT of the abdomen revealed intrauterine device appeared to be penetrating anterior wall of the uterus. Patient admitted with diagnosis of abdominal pain, hypokalemia, intrauterine device complications, abnormal blood sugar. CONSULTANTS: general surgery Dr. Maxwell [facility] DAMAGE ESTIMATOR [facility] COURSE: Patient admitted. General surgery and AUTO DAMAGE ESTIMATOR consults were requested. General surgeon seen and evaluated patient. On exam mainly lower right subcostal tenderness likely costochondritis , as per surgeon confusion. CT of the abdomen revealed no acute intra-abdominal pathology. Subsequently abdominal ultrasound was ordered to ensure no biliary etiology was present, given the location of pain and history. Abdominal ultrasound revealed no hydronephrosis. Mild hepatomegaly. No acute surgical intervention was necessary as per surgeon. Patient started on diet after ultrasound. Antiemetics were on board as needed. Patient was able to tolerate diet. Potassium was replaced. AUTO DAMAGE ESTIMATOR specialist seen and evaluated the patient. Per benefits technician , patient had embedded in myometrium IUD , which could be the source of her bleeding. Patient was recommended to return to primary care provider for removal and replacement under ultrasound guidance. Patient did not want another IUD. Given 2 therapeutic in the last 3 years , benefits technician strongly recommended another control method. According to benefits technician, intrauterine device complication were unrelated to her current GI symptoms. ID was placed over 6 months ago and epigastric pain was a new problem . Air Traffic Supervisor recommended strongly recommended removal of IUD in the office with ultrasound and additional instruments available. Hemoglobin A1c 6.0, which places patient in prediabetes category. Patient was counseled on importance of losing weight, no concentrated sweets diet , increase activity level. DVT and GI prophylaxis provided. Patient was stable for discharge FINAL DIAGNOSES: Abdominal pain Likely costochondritis Possible gastroenteritis IUD, embedded in myometrium Hypokalemia Abnormal blood sugar/prediabetes DISCHARGE MEDICATIONS: See Medication Reconciliation list. DISCHARGE INSTRUCTIONS: Patient was discharged home. Patient to follow-up with her primary care provider provider for referral to AUTO DAMAGE ESTIMATOR per insurance for removal of IUD and emaciating control I have been assigned to dictate discharge summary for this account. I was not involved in the patient's management. Silvia Ortiz NP Nov 03, 2017 10:13
== END 2017-11-01 12:21 | disposition home or self-care (01) | DRG 251 ==
LOC: EMR 10:39 → EDBEDREQ 15:09 → 4E 16:02
DX: R10.9 Unspecified abdominal pain (principal); E87.6 Hypokalemia; K52.9 Noninfective gastroenteritis and colitis, unspecified; R73.03 Prediabetes; M94.0 Chondrocostal junction syndrome [Tietze]; T83.39XA Other mechanical complication of intrauterine contraceptive device, initial encounter; Y84.8 Other medical procedures as the cause of abnormal reaction of the patient, or of later complication, without mention of misadventure at the time of the procedure; Z88.6 Allergy status to analgesic agent
CPT/HCPCS: 36415; 74177; 76700; 80048; 80053; 81003; 81025; 82150; 83036; 83690; 85025; 85610; 85730; 86850; 86900; 86901; 99285; J2405; J8499

== ENCOUNTER → 2018-02-13 | Emergency (ER) | payer MEDICAID ==
[~2018-02-13] VITALS: Ht 160 cm; Wt 106.6 kg
[~2018-02-13] MED LIST changes: +Acetaminophen 500mg (ES) tab ORAL ONE; +DiphenhydrAMINE 50mg/ml Inj IVP ONE; +LORazepam 1mg tab ORAL ONE; +Metoclopramide 10mg/2ml Inj IVP ONE; +SUMAtriptan 6mg/0.5ml Inj SUBQ ONE
[2018-02-13 13:00] VITALS: BP 134/95
[2018-02-13 13:37] LABS: APPEARANCE,URINE SLIGHTLY CLOUDY; BILIRUBIN, URINE NEGATIVE (NEGATIVE); COLOR,URINE PALE YELLOW; GLUCOSE, URINE (UA) NEGATIVE (NEGATIVE); KETONES,URINE NEGATIVE (NEGATIVE); LEUKOCYTE ESTERASE ,URINE 2+ (NEGATIVE); NITRITE,URINE NEGATIVE (NEGATIVE); PH,URINE 7 (4.5-8.0); PROTEIN,URINE NEGATIVE (NEGATIVE); UROBILINOGEN,URINE NORMAL MG/DL (0.0-1.0)
--- NOTE | 2018-02-13 14:44 | Emergency Room Report ---
History of Present Illness General Chief Complaint: Vomiting Source: Patient Present Illness HPI 27 YO female presents to the ED c/o 02/01 in severity WRIGHT that has been progressive this past since Tuesday /Tuesday. She reports nausea and photophobia. Denies Vomiting, fevers, chills, , CP, Palpitations, LOC, AMS, dizziness, Changes in Vision, Sensation, paresthesias, or a sudden onset of a severe headache. Pt. reports hx of migraines. She states usually resolve with OTC medications. Pt. denies neck pain or stiffness. Pt. denies abdominal pain. Reports Reglan gives her anxiety. Allergies: Coded Allergies: ASPIRIN (Verified Allergy, Unknown, 04/18/12) IBUPROFEN (Verified Allergy, Unknown, 04/13/15) Patient History Past Medical History: see triage record, migraines Past Surgical History: none Pertinent Family History: none Now: No Reviewed Nursing Documentation: PMH: Agreed; PSxH: Agreed Nursing Documentation-PMH Past Medical History: No Stated History Hx Cardiac Problems: No Hx Cancer: No Hx Gastrointestinal Problems: Yes Hx Neurological Problems: No Review of Systems All Other Systems: negative except mentioned in HPI Physical Exam Vital Signs Date Time Temp Pulse Resp B/P (MAP) Pulse Ox O2 Delivery O2 Flow Rate FiO2 02/13/18 12:28 98.8 89 18 146/123 98 Room Air 98.8 Sp02 EP Interpretation: reviewed, normal General Appearance: alert, GCS 15, non-toxic, mild distress Head: normocephalic, atraumatic Eyes: bilateral eye normal inspection, bilateral eye PERRL ENT: hearing grossly normal, normal voice Neck: full range of motion Respiratory: chest non-tender, lungs clear, normal breath sounds, speaking full sentences Cardiovascular #1: regular rate, rhythm Gastrointestinal: non tender, soft Musculoskeletal: back normal, gait/station normal, normal range of motion, non- tender Neurologic: alert, oriented x3, responsive, motor strength/tone normal, sensory intact, normal gait, speech normal, other - no gross motor weakness. , grossly normal Psychiatric: judgement/insight normal Skin: normal color, no rash, warm/dry, well hydrated Medical Decision Making PA Attestation Dr. Kumar is my supervising Physician whom patient management has been discussed with. Diagnostic Impression: Primary Impression: Headache Qualified Codes: R51 - Headache Additional Impression: Vomiting Qualified Codes: R11.2 - Nausea with vomiting, unspecified ER Course 27 YO female presents to the ED c/o 02/01 in severity WRIGHT that has been progressive this past since Tuesday /Tuesday. She reports nausea and photophobia. Denies Vomiting, fevers, chills, , CP, Palpitations, LOC, AMS, dizziness, Changes in Vision, Sensation, paresthesias, or a sudden onset of a severe headache. Pt. reports hx of migraines. She states usually resolve with OTC medications. Pt. denies neck pain or stiffness. Pt. denies abdominal pain. Reports Reglan gives her anxiety. Ddx considered but are not limited to migraine, SAH, Pseudomotor Cerebri, Mass lesion, Cluster WRIGHT, Tension WRIGHT, Post lumbar puncture WRIGHT. Vital signs: are WNL, pt. is afebrile H&PE are most consistent with migraine headache, no focal neurological deficits noted. ORDERS: -UA: Unremarkable -Urine Hcg: negative ED INTERVENTIONS: - NS 1000cc -Compazine - Tylenol PO - Immitrex IM -Ativan PO DISPOSITION: Pt. ELOPED - per RN [id number] Labs Test 02/13/18 13:10 Urine Color Pale yellow Urine Appearance Slightly cloudy Urine pH 7 (4.5-8.0) Urine Specific Barnhart 1.010 (1.005-1.035) Urine Protein Negative (NEGATIVE) Urine Glucose (UA) Negative (NEGATIVE) Urine Ketones Negative (NEGATIVE) Urine Blood 1+ (NEGATIVE) Urine Nitrite Negative (NEGATIVE) Urine Bilirubin Negative (NEGATIVE) Urine Urobilinogen Normal MG/DL (0.0-1.0) Urine Leukocyte Esterase 2+ (NEGATIVE) Urine RBC 0-2 /HPF (0 - 2) Urine WBC 2-4 /HPF (0 - 2) Urine Squamous Epithelial Cells Moderate /LPF (NONE/OCC) Urine Bacteria Few /HPF (NONE) Urine HCG, Qualitative Negative (NEGATIVE) Last Vital Signs Date Time Temp Pulse Resp B/P (MAP) Pulse Ox O2 Delivery O2 Flow Rate FiO2 02/13/18 13:39 98.8 02/13/18 12:28 89 18 146/123 98 Room Air Disposition: ELOPED Condition: Unknown Referrals: NOT CHOSEN IPA/,REFERRING (PCP) [place] Feb 13, 2018 14:44
[2018-02-13 14:50] VITALS: BP 134/95
== END | disposition left against medical advice (07) ==
LOC: EMR 13:02
DX: R51 Headache (principal); R11.2 Nausea with vomiting, unspecified; Z88.6 Allergy status to analgesic agent
CPT/HCPCS: 81003; 81025; 96361; 96374; 96375; 99284; J0780; J1200; J3030; J2765

== ENCOUNTER 2018-03-13 15:22 | Emergency (ER) | payer MEDICAID ==
[~2018-03-13] VITALS: Ht 160 cm; Wt 104.3 kg
[~2018-03-13 15:22] MED LIST changes: -Acetaminophen 500mg (ES) tab ORAL ONE; -DiphenhydrAMINE 50mg/ml Inj IVP ONE; -LORazepam 1mg tab ORAL ONE; -Metoclopramide 10mg/2ml Inj IVP ONE; -SUMAtriptan 6mg/0.5ml Inj SUBQ ONE
[2018-03-13 15:40] VITALS: BP 150/90
--- NOTE | 2018-03-13 15:56 | Emergency Room Report ---
History of Present Illness General Chief Complaint: Abdominal Pain Source: Patient Present Illness HPI 27-year-old female patient since the ER complaining of right lower quadrant pain for the past 4 days. Reports pins been intermittent but increasing in intensity. Reports vomiting during this time, states she's been vomiting up fluids. Denies coffee ground emesis or hematemesis. Reports pain with urination during this time. Denies hematuria or vaginal discharge. Denies fever, chest pain, shortness of breath. Denies diarrhea. denies drinking drugs or alcohol. Denies , states last menstrual period was 3 days ago, normal for her. Denies travel outside the country, denies recent antibiotic use. Denies taking control medication. Allergies: Coded Allergies: ASPIRIN (Verified Allergy, Unknown, 04/18/12) IBUPROFEN (Verified Allergy, Unknown, 04/13/15) Patient History Past Medical History: see triage record Last Menstrual Period: 03/11/18 Reviewed Nursing Documentation: PMH: Agreed; PSxH: Agreed Nursing Documentation-PMH Past Medical History: No Stated History Hx Cardiac Problems: No Hx Cancer: No Hx Gastrointestinal Problems: Yes Hx Neurological Problems: No Review of Systems All Other Systems: negative except mentioned in HPI Physical Exam Vital Signs Date Time Temp Pulse Resp B/P (MAP) Pulse Ox O2 Delivery O2 Flow Rate FiO2 03/13/18 15:35 98.8 118 18 150/90 100 Room Air Sp02 EP Interpretation: reviewed, normal General Appearance: well appearing, no apparent distress, alert, GCS 15, non- toxic Head: normocephalic, atraumatic Eyes: bilateral eye normal inspection, bilateral eye PERRL ENT: hearing grossly normal, normal pharynx, no angioedema, normal voice, uvula midline, moist mucus membranes Neck: full range of motion Respiratory: lungs clear, normal breath sounds, no rhonchi, no respiratory distress, no accessory muscle use, no wheezing, speaking full sentences Cardiovascular #1: regular rate, rhythm, no edema Gastrointestinal: normal bowel sounds, soft, no mass, non-distended, no guarding, no rebound, tenderness - right lower right lower quadrant, other - positive obturator, negative [place] Genitourinary: no CVA tenderness Musculoskeletal: back normal, digits/nails normal, gait/station normal, normal range of motion, non-tender Neurologic: alert, oriented x3, responsive, motor strength/tone normal, sensory intact Psychiatric: mood/affect normal Skin: no rash Medical Decision Making PA Attestation Dr. Bonilla is my supervising Physician whom patient management has been discussed with. Diagnostic Impression: Primary Impression: UTI (urinary tract infection) Additional Impressions: Follicular cyst of ovary Abdominal pain ER Course Pt. presents to the ED c/o abdominal pain and vomiting. Ddx considered but are not limited to UTI, ovarian torsion, fibroid, pancreatitis, appendicitis, diverticulitis, nephrolithiasis, constipation, drug use, SBO, acid reflux, opiate dependence. Begin abdominal pain workup. Provided patient with pain medication. Negative Corrales, low suspicion for cholecystitis, does not require abdominal US at this time. Patient previously seen in ER for abdominal pain symptoms, states these are different. Vital signs: are WNL, pt. is afebrile, pulse mildly elevated, will continue to monitor. ORDERS: CBC, CMP, Lipase, UA, CT abdomen pelvis, and medication. ER COURSE: Provided patient with GI cocktail, Zofran, morphine for pain. CBC elevation of WBCs, likely related related to pain and UTI CMP unremarkable Lipase not elevated UA 5-10 WBCs with elevated bacteria, patient sx, likely UTI, will provide patient with Rocephin in the ER. Urine Discuss results with patient CT abdomen and pelvis with contrast shows unremarkable appendix. Colon is under distended and mildly thickened/inflamed. Discuss results with the patient. Provided patient with copy of results. Instructed patient to followup with PCP and discuss results of report with patient, discuss need for further treatment and referral. US shows follicular cysts, nabothian cyst, no ovarian torsion. Spoke with Dr. Rivera at [facility], patient to be transferred to his service. Discuss patient care with Dr. Bonilla, agrees with assessment and treatment plan. following ultrasound, patient states she would not like GERD like to be transferred, states prehospital is "too far away". States that she wants to be discharged home. will discharge patient home with antibiotics for UTI and pain medication. Pain medication may cause drowsiness, do not take prior to drinking, driving, operating of machinery. Provided patient with pain medication prior to discharge. Patient states she will take it [employer] car service home. patient able tolerate by mouth fluids while in the ER. Advised patient to follow with [facility] specialist and GI specialist. Provided with contact information for [facility] and GI specialist. Follow-up PCP and discuss referral at that time. Discuss further treatment and referral. ER precautions given. patient reports pain symptoms improved prior to discharge. CURES reviewed. DISCHARGE: At this time pt is stable for d/c to home. Patient is resting comfortably, in no acute distress, nontoxic appearing, talking without difficulty. Patient to take medications as instructed Will provide with patient care instructions and any necessary prescriptions. Care plan and follow-up instructions provided. Patient instructed to follow-up with primary care provider in 3 - 5 days. Patient questions asked and answered. Patient reports understanding and agreement to treatment plan. ER precautions given. Patient instructed to return to ER immediately for any new or worsening of symptoms including but not limited to increasing SOB, persistent fever. - Please note that this Emergency Department Report was dictated using [employer] technology software, occasionally this can lead to erroneous entry secondary to interpretation by the dictation equipment. Labs Test 03/13/18 15:55 White Blood Count 14.0 K/UL (4.8-10.8) Red Blood Count 5.19 M/UL (4.20-5.40) Hemoglobin 13.4 G/DL (12.0-16.0) Hematocrit 41.3 % (37.0-47.0) Mean Corpuscular Volume 80 FL (80-99) Mean Corpuscular Hemoglobin 25.8 PG (27.0-31.0) Mean Corpuscular Hemoglobin Concent 32.5 G/DL (32.0-36.0) Red Cell Distribution Width 14.2 % (11.6-14.8) Platelet Count 655 K/UL (150-450) Mean Platelet Volume 7.7 FL (6.5-10.1) Neutrophils (%) (Auto) 77.5 % (45.0-75.0) Lymphocytes (%) (Auto) 15.9 % (20.0-45.0) Monocytes (%) (Auto) 4.8 % (1.0-10.0) Eosinophils (%) (Auto) 0.6 % (0.0-3.0) Basophils (%) (Auto) 1.2 % (0.0-2.0) Urine Color Brown Urine Appearance Slightly cloudy Urine pH 6 (4.5-8.0) Urine Specific [place] 1.025 (1.005-1.035) Urine Protein 2+ (NEGATIVE) Urine Glucose (UA) Negative (NEGATIVE) Urine Ketones 3+ (NEGATIVE) Urine Blood 1+ (NEGATIVE) Urine Nitrite Negative (NEGATIVE) Urine Bilirubin 1+ (NEGATIVE) Urine Ictotest Negative (NEGATIVE) Urine Urobilinogen 1 MG/DL (0.0-1.0) Urine Leukocyte Esterase 1+ (NEGATIVE) Urine RBC 2-4 /HPF (0 - 2) Urine WBC 5-10 /HPF (0 - 2) Urine Squamous Epithelial Cells Moderate /LPF (NONE/OCC) Urine Bacteria Moderate /HPF (NONE) Urine Mucus Moderate /LPF (NONE/OCC) Urine HCG, Qualitative Negative (NEGATIVE) Sodium Level 138 MMOL/L (136-145) Potassium Level 3.8 MMOL/L (3.5-5.1) Chloride Level 101 MMOL/L (98-107) Carbon Dioxide Level 23 MMOL/L (21-32) Anion Gap 14 mmol/L (5-15) Blood Urea Nitrogen 8 mg/dL (7-18) Creatinine 1.0 MG/DL (0.55-1.30) Estimat Glomerular Filtration Rate > 60 mL/min (>60) Glucose Level 111 MG/DL (74-106) Calcium Level 10.3 MG/DL (8.5-10.1) Total Bilirubin 0.2 MG/DL (0.2-1.0) Aspartate Amino Transf (AST/SGOT) 24 U/L (15-37) Alanine Aminotransferase (ALT/SGPT) 35 U/L (12-78) Alkaline Phosphatase 47 U/L (46-116) Total Protein 9.9 G/DL (6.4-8.2) Albumin 4.1 G/DL (3.4-5.0) Globulin 5.8 g/dL Albumin/Globulin Ratio 0.7 (1.0-2.7) Lipase 96 U/L (73-393) Urine Opiates Screen Negative (NEGATIVE) Urine Barbiturates Screen Negative (NEGATIVE) Phencyclidine (PCP) Screen Negative (NEGATIVE) Urine Amphetamines Screen Negative (NEGATIVE) Urine Benzodiazepines Screen Negative (NEGATIVE) Urine Cocaine Screen Negative (NEGATIVE) Urine Marijuana (THC) Screen Negative (NEGATIVE) CT/MRI/US Diagnostic Results CT/MRI/US Diagnostic Results #1: Imaging Test Ordered: CT abdomen pelvis Impression Unremarkable appendix. Colon is under distended and mildly thickened/inflamed. Correlate with the GI symptoms. No radiodense gallstones or pancreatitis. No hydronephrosis. Dependent edema in the soft tissues of the back. CT/MRI/US Diagnostic Results #2: Imaging Test Ordered: Pelvic US Impression bilateral follicular cysts Nabothian cyst No torsion Last Vital Signs Date Time Temp Pulse Resp B/P (MAP) Pulse Ox O2 Delivery O2 Flow Rate FiO2 03/13/18 15:35 98.8 118 18 150/90 100 Room Air Status: improved Disposition: HOME, SELF-CARE Condition: Stable Scripts Cephalexin* (KEFLEX*) 500 Mg Capsule 500 MG ORAL EVERY 12 HOURS, #14 CAP 0 Refills Prov: Jay White 03/13/18 Tramadol Hcl (ULTRAM*) 50 Mg Tablet 50 MG ORAL Q6H, #10 TAB 0 Refills Prov: Jay Whiet 03/13/18 Patient Instructions: Abdominal Pain, Adult, Colitis, Urinary Tract Infection, [id number] Additional Instructions: Followup with primary care provider in 3 -5 days. Follow up GI specialist. Follow-up with [facility] specialist. Drink plenty of fluids. Take medications as directed. Patient questions asked and answered. ER precautions given, patient instructed to return to ER immediately for any new or worsening of symptoms. Jay White Mar 13, 2018 15:55
[2018-03-13] MEDS ORDERED: Morphine Sulfate 4mg/ml Inj (IV/IM USE ONLY) IVP ONE ×2 (16:00→19:45)
[2018-03-13] MEDS ORDERED: Lidocaine 2% Visc 15ml soln ORAL ONE (16:00)
[2018-03-13] MEDS ORDERED: Mylanta II UD 30ml ORAL ONE (16:00)
[2018-03-13] MEDS ORDERED: Isovue-300 100ml vial INJ PRN (16:00)
[2018-03-13] MEDS ORDERED: Dicyclomine HCl 10mg/5ml oral soln ORAL ONE (16:00)
[2018-03-13 16:23] LABS: APPEARANCE,URINE SLIGHTLY CLOUDY; BILIRUBIN, URINE 1+ (NEGATIVE); COLOR,URINE BROWN; GLUCOSE, URINE (UA) NEGATIVE (NEGATIVE); KETONES,URINE 3+ (NEGATIVE); LEUKOCYTE ESTERASE ,URINE 1+ (NEGATIVE); NITRITE,URINE NEGATIVE (NEGATIVE); PH,URINE 6 (4.5-8.0); PROTEIN,URINE 2+ (NEGATIVE); UROBILINOGEN,URINE 1 MG/DL (0.0-1.0)
[2018-03-13 16:31] LABS: BASOPHILS % (AUTO) 1.2 % (0.0-2.0); EOSINOPHILS % (AUTO) 0.6 % (0.0-3.0); HEMATOCRIT 41.3 % (37.0-47.0); HEMOGLOBIN 13.4 G/DL (12.0-16.0); LYMPHOCYTES % (AUTO) 15.9 % (20.0-45.0); MEAN CORPUSCULAR VOLUME 80 FL (80-99); MONOCYTES % (AUTO) 4.8 % (1.0-10.0); NEUTROPHILS % (AUTO) 77.5 % (45.0-75.0); PLATELET COUNT 655 K/UL (150-450); RED BLOOD COUNT 5.19 M/UL (4.20-5.40); RED CELL DISTRIBUTION WIDTH 14.2 % (11.6-14.8)
[2018-03-13 16:41] LABS: ANION GAP 14 mmol/L (5-15); BLOOD UREA NITROGEN 8 mg/dL (7-18); CALCIUM 10.3 MG/DL (8.5-10.1); CARBON DIOXIDE 23 MMOL/L (21-32); CHLORIDE 101 MMOL/L (98-107); POTASSIUM 3.8 MMOL/L (3.5-5.1); SODIUM 138 MMOL/L (136-145)
[2018-03-13 16:46] LABS: ALANINE AMINOTRANSFERASE 35 U/L (12-78); ALBUMIN 4.1 G/DL (3.4-5.0); ALBUMIN/GLOBULIN RATIO 0.7 (1.0-2.7); ALKALINE PHOSPHATASE 47 U/L (46-116); ASPARTATE AMINO TRANSFERASE 24 U/L (15-37); BILIRUBIN,TOTAL 0.2 MG/DL (0.2-1.0)
[2018-03-13] MEDS ORDERED: Morphine Sulfate 2mg/ml Inj IVP ONE (17:30)
[2018-03-13] MEDS ORDERED: cefTRIAXone 1 GM in NS 55 ML IVPB ONE (18:00)
[2018-03-13 19:40] VITALS: BP 141/82
[2018-03-13] MEDS ORDERED: CEPHALEXIN500 MG ORAL (20:16)
[2018-03-13] MEDS ORDERED: ULTRAM50 MG ORAL (20:16)
[2018-03-13 20:25] VITALS: BP 136/88
[2018-03-13 20:51] VITALS: BP 136/88
--- NOTE | 2018-03-14 08:31 | Diagnostic Imaging Report ---
Indication: Abdominal pain Technique: CT of the abdomen and pelvis utilizing automated exposure control with intravenous contrast. Venous scanning performed. Axial, sagittal and coronal reformats presented. CT dose: Total DLP 1072.49 mGycm; CTDI vol 19.28 mGy Comparison: 10/30/2017 Findings: Imaged lung bases are without evidence of airspace consolidation, pleural effusion or pneumothorax. Heart size within normal limits. No pericardial effusion. Borderline hepatomegaly with the liver measuring 19 cm in cranial caudal length. Hepatic contour is smooth. No focal hepatic mass lesion appreciated on this single phase exam. Hepatic veins and portal veins appear patent. Gallbladder is without CT evident gallstones or pericholecystic inflammatory change. No biliary ductal dilatation. Spleen, adrenal glands and pancreas are unremarkable. Questionable striated enhancement of the kidneys. No urinary tract stone or hydronephrosis identified. No perinephric stranding. No perinephric fluid collection or abscess. Lateral thickening likely related to underdistention. There has been interval removal of the previously seen uterine device (IUD). Some fluid attenuation is noted within the uterine canal, likely physiologic finding in this reproductive age female. There is no evidence of small bowel obstruction. No evidence of free intraperitoneal air. Appendix is normal in caliber. No periappendiceal inflammatory change. Apparent thickening of portions of the left colon noted which may be exaggerated due to underdistention however possibility of a mild colitis is not excluded. The abdominal aorta is normal in caliber. There is dependent edema in the soft tissues of the back without well-defined/drainable fluid collection. No acute osseous abnormality. There is a tiny fat-containing umbilical hernia. IMPRESSION: * Apparent thickening of portions of the left colon which may be exaggerated by underdistention however the possibility of a mild colitis is not excluded. Clinical correlation recommended. * No evidence of bowel obstruction. Normal appendix. * Questionable striated enhancement of the bilateral kidneys. No hydronephrosis, perinephric stranding or perinephric fluid collections. Thickening versus underdistention of the bladder. Correlation with urinalysis recommended to assess for possible cystitis/pyelonephritis. Additional incidental findings as above. The CT scanner at [facility] is accredited by the [place] and the scans are performed using protocols designed to limit radiation exposure to as low as reasonably achievable to attain images of sufficient resolution adequate for diagnostic evaluation.
--- NOTE | 2018-03-14 08:37 | Diagnostic Imaging Report ---
Indication: Pain. Reported negative test Technique: Transabdominal and endovaginal pelvic ultrasound was performed. Findings: The uterus is retroverted. It measures approximately 8.5 x 5.1 cm. Small well-circumscribed anechoic structure noted in the lower uterine segment/cervix less likely representing nabothian cyst. Endometrium measures approximately 15 mm in thickness, likely within physiologic range in this reproductive age female. The right ovary measures 4 x 2.3 x 2.3 cm/11 mL. The left ovary measures 3.5 x 3 x 1.9 cm/10.5 mL. Small follicular cysts are noted in the bilateral ovaries. Symmetric color and Doppler flow is demonstrated in the bilateral ovaries. There is no significant free pelvic fluid. IMPRESSION: * Retroverted uterus. * Small likely nabothian cyst in the cervix. * Ovary symmetric in size with symmetric color Doppler flow demonstrated in the bilateral ovaries.
== END 2018-03-13 20:53 | disposition home or self-care (01) ==
LOC: EMR 16:41
DX: N39.0 Urinary tract infection, site not specified (principal); N83.00 Follicular cyst of ovary, unspecified side; N88.8 Other specified noninflammatory disorders of cervix uteri; K52.9 Noninfective gastroenteritis and colitis, unspecified; R11.10 Vomiting, unspecified; Z88.6 Allergy status to analgesic agent; Z88.8 Allergy status to other drugs, medicaments and biological substances; Z87.19 Personal history of other diseases of the digestive system
CPT/HCPCS: 36415; 74177; 76830; 76856; 80053; 80307; 81003; 81025; 83690; 85025; 87086; 96361; 96365; 96375; 96376; 99284; J0696; J2270; J2405; Q9967

== ENCOUNTER 2018-03-29 21:06 | Emergency (ER) | payer MEDICAID ==
[~2018-03-29] VITALS: Ht 160 cm; Wt 113.4 kg
[~2018-03-29 21:06] MED LIST changes: +ULTRAM50 MG ORAL
[2018-03-29 21:19] VITALS: BP 129/71
[2018-03-29] MEDS ORDERED: Tylenol #3 tab (300mg/30mg) ORAL ONE (21:30)
[2018-03-29 21:40] VITALS: BP 130/65
[2018-03-29] MEDS ORDERED: TYLENOL325 MG ORAL (21:41)
[2018-03-29 21:47] VITALS: BP 130/65
--- NOTE | 2018-03-30 00:58 | Emergency Room Report ---
History of Present Illness General Chief Complaint: Lower Extremity Injury Source: Patient Present Illness HPI Patient presents with complaints of right ankle pain Reports that she slipped in the bathroom at approximately noon Pain is 6 out of 10 Worse with bearing weight Denies any knee pain denies any pelvic pain Denies any chest pain or shortness of breath Allergies: Coded Allergies: ASPIRIN (Verified Allergy, Unknown, 04/18/12) IBUPROFEN (Verified Allergy, Unknown, 04/13/15) Patient History Past Medical History: see triage record Pertinent Family History: none Last Menstrual Period: currently on her period Now: No Reviewed Nursing Documentation: PMH: Agreed; PSxH: Agreed Nursing Documentation-PMH Past Medical History: No Stated History Hx Cardiac Problems: No Hx Cancer: No Hx Gastrointestinal Problems: Yes Hx Neurological Problems: No Review of Systems All Other Systems: negative except mentioned in HPI Physical Exam Vital Signs Date Time Temp Pulse Resp B/P (MAP) Pulse Ox O2 Delivery O2 Flow Rate FiO2 03/29/18 21:10 98.1 100 18 134/78 100 Room Air Sp02 EP Interpretation: reviewed, normal General Appearance: well appearing, no apparent distress Head: normocephalic, atraumatic Eyes: bilateral eye PERRL, bilateral eye EOMI ENT: normal pharynx Neck: supple Respiratory: lungs clear Musculoskeletal: swelling - Right ankle mainly lateral aspect Neurologic: alert, oriented x3, responsive Skin: other - As above Lymphatic: no adenopathy Procedures Splinting Splinting : Consent: Verbal Location: Right ankle Pre-Made Type: aircast Splint: sugar-tong Pre-Proc Neuro Vasc Exam: normal Post-Proc Neuro Vasc Exam: normal Patient Tolerated: Well Complications: None Medical Decision Making Diagnostic Impression: Primary Impression: ankle sprain ER Course The imaging shows some limitation however no obvious acute fracture is seen Patient has a splint applied given the swelling And requires close outpatient follow-up Other X-Ray Diagnostic Results Other X-Ray Diagnostic Results : X-Ray ordered: Right ankle # of Views/Limited Vs Complete: 3 View Indication: Pain EP Interpretation: Yes Interpretation: no dislocation, no fractures, other - Some soft tissue swelling Impression: Other - Some soft tissue swellig Electronically Signed by: Camilo Braun DO Last Vital Signs Date Time Temp Pulse Resp B/P (MAP) Pulse Ox O2 Delivery O2 Flow Rate FiO2 03/29/18 21:47 98.7 86 18 130/65 100 Room Air Status: improved Disposition: HOME, SELF-CARE Condition: Improved Scripts Acetaminophen (Tylenol) 325 Mg Tablet 650 MG ORAL Q8HR PRN for Prn Pain/Headache/Temp > 101, #20 TAB 0 Refills Prov: Camilo Braun DO 03/29/18 Referrals: [facility]ERR[facility] (PCP) Patient Instructions: Ankle Sprain Additional Instructions: Patient is provided with the discharge instructions notified to follow up with primary doctor in the next 2-3 days otherwise return to the er with any worsening symptoms. Please note that this report is being documented using [employer] technology. This can lead to erroneous entry secondary to incorrect interpretation by the dictating instrument. Camilo Braun DO Mar 30, 2018 00:58
--- NOTE | 2018-03-30 09:26 | Diagnostic Imaging Report ---
Indication: Trauma, fall, ankle pain Technique: 3 views of the right ankle Comparison: None Findings: There is soft tissue swelling over the lateral malleolus. No acute fractures. No dislocations. The joint spaces are preserved Impression: Soft tissue swelling. No acute bony trauma
== END 2018-03-29 21:47 | disposition home or self-care (01) ==
LOC: EMR 21:22
DX: S93.401A Sprain of unspecified ligament of right ankle, initial encounter (principal); W01.0XXA Fall on same level from slipping, tripping and stumbling without subsequent striking against object, initial encounter; Y92.002 Bathroom of unspecified non-institutional (private) residence as the place of occurrence of the external cause; Z88.6 Allergy status to analgesic agent
CPT/HCPCS: 99283

== ENCOUNTER 2018-05-28 21:39 | Emergency (ER) | payer MEDICAID ==
[~2018-05-28] VITALS: Ht 160 cm; Wt 108.0 kg
[~2018-05-28 21:39] MED LIST changes: +TYLENOL325 MG ORAL
[2018-05-28 21:55] VITALS: BP 128/77
--- NOTE | 2018-05-28 21:55 | NUR ---
ED Nurse Note: Patient has complaints of right lower abdominal pain since . pain level 10/10. pt stated she was vomiting yellow vomitus countless times. pt is thumbsucking. pt refused reglan because she feels anxiety when she takes it. pt hooked on monitor with vitalsign within normal limit. ermd on bedside. will continue to monitor.
--- NOTE | 2018-05-28 21:57 | Emergency Room Report ---
History of Present Illness General Chief Complaint: Abdominal Pain Source: Patient Present Illness HPI She is a 27-year-old female presented after increased right lower abdominal pain. Patient gradual onset of symptoms. She denies being . Patient had prior history of C-sections in the past. She reports having vomiting for the past few days. She denies any fever. She reports having some intermittent headache. She states that she has not had a bowel movement in several days. Allergies: Coded Allergies: ASPIRIN (Verified Allergy, Unknown, 04/18/12) IBUPROFEN (Verified Allergy, Unknown, 04/13/15) Patient History Past Medical History: see triage record Last Menstrual Period: 05/01/18 Now: No Reviewed Nursing Documentation: PMH: Agreed; PSxH: Agreed Nursing Documentation-PMH Past Medical History: No Stated History Hx Cardiac Problems: No Hx Cancer: No Hx Gastrointestinal Problems: Yes Hx Neurological Problems: No Review of Systems All Other Systems: negative except mentioned in HPI Physical Exam Vital Signs Date Time Temp Pulse Resp B/P (MAP) Pulse Ox O2 Delivery O2 Flow Rate FiO2 05/28/18 21:45 98.1 113 18 128/77 98 Room Air Sp02 EP Interpretation: reviewed, normal General Appearance: normal inspection, well appearing, no apparent distress, alert, GCS 15, non-toxic Head: atraumatic ENT: normal ENT inspection, hearing grossly normal, normal voice Neck: normal inspection, full range of motion, supple, no bony tend Respiratory: normal inspection, lungs clear, normal breath sounds, no respiratory distress, no retraction, no wheezing Cardiovascular #1: regular rate, rhythm, no edema Gastrointestinal: normal inspection, normal bowel sounds, non tender, soft, no guarding, no hernia Genitourinary: no CVA tenderness Musculoskeletal: normal inspection, back normal, normal range of motion Neurologic: normal inspection, alert, oriented x3, responsive, brisket puller III-XII nml as tested, speech normal Psychiatric: normal inspection, judgement/insight normal, mood/affect normal Skin: normal inspection, normal color, no rash Medical Decision Making Diagnostic Impression: Primary Impression: Abdominal pain Additional Impression: Fecal retention ER Course Patient presented for abdominal pain. Differential diagnoses included ischemic bowel, appendicitis, perforated viscus, abdominal aortic aneurysm, inferior myocardial infarction, viral gastroenteritis among others. Because of complexity of patient's case laboratory testing and imaging studies were ordered.. CT of abdomen pelvis read by radiology showed no acute findings in the solid abdominal organs moderate to large amount of retained stool particularly in the right colon. There is no evidence of obstruction hematemesis or perforation. Normal appendix. Patient was discharged home. Patient was given prescription for medications for symptomatic treatment. She was noted to have some evidence of urinary infection was given IV antibiotics and prescription for further antibiotics. Advised to follow-up with gastroenterology for colonoscopy as an outpatient. Labs Test 05/28/18 21:50 White Blood Count 8.2 K/UL (4.8-10.8) Red Blood Count 4.42 M/UL (4.20-5.40) Hemoglobin 11.1 G/DL (12.0-16.0) Hematocrit 35.6 % (37.0-47.0) Mean Corpuscular Volume 81 FL (80-99) Mean Corpuscular Hemoglobin 25.1 PG (27.0-31.0) Mean Corpuscular Hemoglobin Concent 31.1 G/DL (32.0-36.0) Red Cell Distribution Width 16.6 % (11.6-14.8) Platelet Count 224 K/UL (150-450) Mean Platelet Volume 7.5 FL (6.5-10.1) Neutrophils (%) (Auto) 51.3 % (45.0-75.0) Lymphocytes (%) (Auto) 36.2 % (20.0-45.0) Monocytes (%) (Auto) 6.3 % (1.0-10.0) Eosinophils (%) (Auto) 5.1 % (0.0-3.0) Basophils (%) (Auto) 1.1 % (0.0-2.0) Prothrombin Time 11.3 SEC (9.30-11.50) Prothromb Time International Ratio 1.1 (0.9-1.1) Activated Partial Thromboplast Time 29 SEC (23-33) Urine Color [place]ari Urine Appearance Clear Urine pH 7 (4.5-8.0) Urine Specific [place] 1.010 (1.005-1.035) Urine Protein 2+ (NEGATIVE) Urine Glucose (UA) Negative (NEGATIVE) Urine Ketones Negative (NEGATIVE) Urine Blood Negative (NEGATIVE) Urine Nitrite Positive (NEGATIVE) Urine Bilirubin Negative (NEGATIVE) Urine Ictotest Negative (NEGATIVE) Urine Urobilinogen 1 MG/DL (0.0-1.0) Urine Leukocyte Esterase 1+ (NEGATIVE) Urine RBC 0-2 /HPF (0 - 2) Urine WBC 5-10 /HPF (0 - 2) Urine Squamous Epithelial Cells Many /LPF (NONE/OCC) Urine Bacteria Many /HPF (NONE) Urine HCG, Qualitative Negative (NEGATIVE) Sodium Level 140 MMOL/L (136-145) Potassium Level 3.7 MMOL/L (3.5-5.1) Chloride Level 103 MMOL/L (98-107) Carbon Dioxide Level 27 MMOL/L (21-32) Anion Gap 11 mmol/L (5-15) Blood Urea Nitrogen 8 mg/dL (7-18) Creatinine 1.1 MG/DL (0.55-1.30) Estimat Glomerular Filtration Rate > 60 mL/min (>60) Glucose Level 101 MG/DL (74-106) Calcium Level 9.0 MG/DL (8.5-10.1) Total Bilirubin 0.1 MG/DL (0.2-1.0) Aspartate Amino Transf (AST/SGOT) 18 U/L (15-37) Alanine Aminotransferase (ALT/SGPT) 29 U/L (12-78) Alkaline Phosphatase 53 U/L (46-116) Total Protein 8.0 G/DL (6.4-8.2) Albumin 3.7 G/DL (3.4-5.0) Globulin 4.3 g/dL Albumin/Globulin Ratio 0.9 (1.0-2.7) Lipase 91 U/L (73-393) Urine Opiates Screen Negative (NEGATIVE) Urine Barbiturates Screen Negative (NEGATIVE) Phencyclidine (PCP) Screen Negative (NEGATIVE) Urine Amphetamines Screen Negative (NEGATIVE) Urine Benzodiazepines Screen Negative (NEGATIVE) Urine Cocaine Screen Negative (NEGATIVE) Urine Marijuana (THC) Screen Negative (NEGATIVE) Last Vital Signs Date Time Temp Pulse Resp B/P (MAP) Pulse Ox O2 Delivery O2 Flow Rate FiO2 05/28/18 21:45 98.1 113 18 128/77 98 Room Air Status: improved Disposition: HOME, SELF-CARE Condition: Stable Scripts Lactulose (LACTULOSE*) 20 Gm/30 Ml Solution 30 ML ORAL THREE TIMES A DAY for constipation, #120 ML 0 Refills Prov: Dwight Pyle MD 05/29/18 Cephalexin* (KEFLEX*) 500 Mg Capsule 500 MG ORAL EVERY 6 HOURS, #28 CAP Prov: Dwight Pyle MD 05/29/18 Dwight Pyle MD May 28, 2018 21:57
[2018-05-28] MEDS ORDERED: Isovue-300 100ml vial INJ PRN (22:00)
[2018-05-28] MEDS ORDERED: Metoclopramide 10mg/2ml Inj IVP ONE (22:00)
[2018-05-28 22:21] LABS: BASOPHILS % (AUTO) 1.1 % (0.0-2.0); EOSINOPHILS % (AUTO) 5.1 % (0.0-3.0); HEMATOCRIT 35.6 % (37.0-47.0); HEMOGLOBIN 11.1 G/DL (12.0-16.0); LYMPHOCYTES % (AUTO) 36.2 % (20.0-45.0); MEAN CORPUSCULAR VOLUME 81 FL (80-99); MONOCYTES % (AUTO) 6.3 % (1.0-10.0); NEUTROPHILS % (AUTO) 51.3 % (45.0-75.0); PLATELET COUNT 224 K/UL (150-450); RED BLOOD COUNT 4.42 M/UL (4.20-5.40); RED CELL DISTRIBUTION WIDTH 16.6 % (11.6-14.8); WHITE BLOOD COUNT 8.2 K/UL (4.8-10.8)
[2018-05-28 22:24] LABS: APPEARANCE,URINE CLEAR; BILIRUBIN, URINE NEGATIVE (NEGATIVE); COLOR,URINE AMBER; GLUCOSE, URINE (UA) NEGATIVE (NEGATIVE); KETONES,URINE NEGATIVE (NEGATIVE); LEUKOCYTE ESTERASE ,URINE 1+ (NEGATIVE); NITRITE,URINE POSITIVE (NEGATIVE); PH,URINE 7 (4.5-8.0); PROTEIN,URINE 2+ (NEGATIVE); UROBILINOGEN,URINE 1 MG/DL (0.0-1.0)
[2018-05-28 22:37] LABS: INR 1.1 (0.9-1.1)
[2018-05-28 22:41] LABS: ANION GAP 11 mmol/L (5-15); BLOOD UREA NITROGEN 8 mg/dL (7-18); CARBON DIOXIDE 27 MMOL/L (21-32); CHLORIDE 103 MMOL/L (98-107); CREATININE 1.1 MG/DL (0.55-1.30); POTASSIUM 3.7 MMOL/L (3.5-5.1); SODIUM 140 MMOL/L (136-145)
[2018-05-28 22:46] LABS: ALANINE AMINOTRANSFERASE 29 U/L (12-78); ALBUMIN 3.7 G/DL (3.4-5.0); ALBUMIN/GLOBULIN RATIO 0.9 (1.0-2.7); ALKALINE PHOSPHATASE 53 U/L (46-116); ASPARTATE AMINO TRANSFERASE 18 U/L (15-37); BILIRUBIN,TOTAL 0.1 MG/DL (0.2-1.0)
--- NOTE | 2018-05-28 23:12 | NUR ---
ED Nurse Note: pt went to ct with tech
--- NOTE | 2018-05-28 23:22 | NUR ---
ED Nurse Note: pt went back from ct, procedure unsuccessful, pt statd she had anxiety to the machine
[2018-05-28] MEDS ORDERED: cefTRIAXone 1 GM in NS 55 ML IVPB ONE (23:30)
[2018-05-28] MEDS ORDERED: Dicyclomine HCl 10mg/5ml oral soln ORAL ONE (23:45)
[2018-05-28] MEDS ORDERED: Morphine Sulfate 4mg/ml Inj (IV/IM USE ONLY) IVP ONE (23:45)
[2018-05-29 00:07] VITALS: BP 129/76
--- NOTE | 2018-05-29 00:10 | NUR ---
ED Nurse Note: pt stated she is ready now for the ct, business objects report developer notified
--- NOTE | 2018-05-29 00:30 | NUR ---
ED Nurse Note: pt went from ct with destinee and rn.
[2018-05-29] MEDS ORDERED: CEPHALEXIN500 MG ORAL (01:14)
[2018-05-29] MEDS ORDERED: LACTULOSE20 GM/301 ORAL (01:14)
[2018-05-29 01:37] VITALS: BP 129/76
--- NOTE | 2018-05-29 01:37 | NUR ---
ED Nurse Note: pt was cleared for discharge by kyara. discharge instruction and prescption explained and pt able to verbalize understanding. pt aox4.iv id band removed. pt able to walk with steady gait. pt left the ed with all the belongings.
--- NOTE | 2018-05-29 10:02 | Diagnostic Imaging Report ---
Indication: Abdominal pain Technique: Continuous helical transaxial imaging of the abdomen and pelvis was obtained from the lung bases to the pubic symphysis during intravenous contrast administration. Coronal 2-D reformats were also obtained. Study obtained in a Siemens sensation [address] Automatic Exposure Control was utilized. Total Dose length Product (DLP): 1049.[address] Dose Index Volume (CTDIvol): 19.51 mGy Comparison: 03/13/2018 Findings: Lung bases are clear. Gallbladder is contracted. Kidneys unremarkable. No hydronephrosis seen. Appendix is normal. Uterus and both ovaries demonstrated grossly unremarkable. No free fluid or evidence of bowel obstruction. Other solid organs appear normal. IMPRESSION: No acute findings The CT scanner at [facility] is accredited by the [employer] and the scans are performed using dose optimization techniques as appropriate to a performed exam including Automatic Exposure control.
== END 2018-05-29 01:37 | disposition home or self-care (01) ==
LOC: EMR 21:59
DX: R10.31 Right lower quadrant pain (principal); K59.00 Constipation, unspecified; Z88.6 Allergy status to analgesic agent
CPT/HCPCS: 36415; 74177; 80053; 80307; 81003; 81025; 83690; 85025; 85610; 85730; 86850; 86900; 86901; 87086; 96361; 96365; 96375; 99284; J0696; J2270; J2405; J7040; Q9967; J2765

== ENCOUNTER 2018-07-10 21:02 | Emergency (ER) | payer MEDICAID ==
[~2018-07-10] VITALS: Ht 160 cm; Wt 111.1 kg
[~2018-07-10 21:02] MED LIST changes: +LACTULOSE20 GM/301 ORAL
[2018-07-10] MEDS ORDERED: NORCO 5-325 TA1 EACH ORAL (21:09)
--- NOTE | 2018-07-10 21:14 | NUR ---
ED Nurse Note: urine collected and sent down
--- NOTE | 2018-07-10 21:25 | NUR ---
ED Nurse Note: Pt was arrived ED from home. C/o left lower abdominal pain, 11/01. Pt states that she was in [facility] yesterday which had " a cyst ruptured" on left lower abdomen. Pt is A/O X4. Vital signs stable at this time. Wating for orders.
[2018-07-10 22:54] VITALS: BP 116/68
[2018-07-10 23:25] VITALS: BP 113/62
--- NOTE | 2018-07-10 23:25 | NUR ---
ED Nurse Note: Pt was assessed by Dr. Braun, who was just puting in new orderes. But put left without informing Nurses or MD.
--- NOTE | 2018-07-10 23:36 | Emergency Room Report ---
History of Present Illness General Chief Complaint: Abdominal Pain Source: Patient Present Illness HPI Patient presents with complaints of abdominal pain reports that she was seen yesterday at [facility] diagnosed with a ruptured cyst Patient reports that she was given prescription however the medicine is not working Patient reports she has increased nausea as well and vomiting Denies any headache denies any chest pain Pain is suprapubic and also left lower Denies any vaginal discharge denies any dysuria frequency Allergies: Coded Allergies: ASPIRIN (Verified Allergy, Unknown, 04/18/12) IBUPROFEN (Verified Allergy, Unknown, 04/13/15) Patient History Past Medical History: see triage record Pertinent Family History: none Last Menstrual Period: 06/06/18 Now: No : 2 Para: 1 Reviewed Nursing Documentation: PMH: Agreed; PSxH: Agreed Nursing Documentation-PMH Past Medical History: No History, Except For Hx Cardiac Problems: No Hx Cancer: No Hx Gastrointestinal Problems: Yes Hx Neurological Problems: No Review of Systems All Other Systems: negative except mentioned in HPI Physical Exam Vital Signs Date Time Temp Pulse Resp B/P (MAP) Pulse Ox O2 Delivery O2 Flow Rate FiO2 07/10/18 21:05 97.9 105 18 114/68 97 Room Air Sp02 EP Interpretation: reviewed, normal General Appearance: well appearing, no apparent distress Head: normocephalic, atraumatic Eyes: bilateral eye PERRL, bilateral eye EOMI ENT: hearing grossly normal, normal pharynx Neck: supple Respiratory: lungs clear Cardiovascular #1: regular rate, rhythm Gastrointestinal: non tender, soft - However subjectively points to the left lower and suprapubic region of the abdomen Musculoskeletal: normal inspection Neurologic: alert, oriented x3 Skin: normal color, no rash Lymphatic: no adenopathy Medical Decision Making Diagnostic Impression: Primary Impression: Abdominal pain ER Course With the patient's history and examination, multiple differentials considered, including but not limited to , ectopic , ovarian torsion, gastritis, cholecystitis, pancreatitis, appendicitis Patient reports that she has an ultrasound from yesterday showing ruptured cyst At this time given her discomfort a baseline CBC and chemistry along with test was ordered patient was written for Zofran However upon the nurse returning for the intervention patient had left the emergency room and eloped prior to initiating the workup patient was awake and alert, had appropriate decision making capacity Last Vital Signs Date Time Temp Pulse Resp B/P (MAP) Pulse Ox O2 Delivery O2 Flow Rate FiO2 07/10/18 22:54 97.9 97 18 116/68 97 Room Air Status: other Disposition: ELOPED Condition: Unknown Camilo Braun DO Jul 10, 2018 23:36
== END 2018-07-10 23:25 | disposition left against medical advice (07) ==
LOC: EMR 21:43
DX: R10.9 Unspecified abdominal pain (principal); R11.2 Nausea with vomiting, unspecified; Z88.6 Allergy status to analgesic agent
CPT/HCPCS: 99282

== ENCOUNTER 2018-08-15 03:50 | Emergency (ER) | payer MEDICAID ==
[~2018-08-15] VITALS: Ht 160 cm; Wt 113.4 kg
--- NOTE | 2018-08-15 04:00 | NUR ---
ED Nurse Note: PT CAME FROM HOME C/O OF LL ABD PAIN SINCE TUESDAY. PER PT SHE STATES THAT SHE HAS N/V/D SINCE TUESDAY.
[2018-08-15 04:01] VITALS: BP 140/86
--- NOTE | 2018-08-15 04:10 | Emergency Room Report ---
History of Present Illness General Chief Complaint: Abdominal Pain Source: Patient Present Illness HPI This is a 27-year-old female with a history of current abdominal pain. She has multiple ultrasound and CT scan done already. She presents with chief complaint of left lower quadrant pain with nausea vomiting and diarrhea. This is similar to previous presentation. Pain is sharp and crampy. 8 out of 10. No radiation. Vomiting is nonbloody nonbilious. Nothing made it better. Unable to keep anything down. Allergies: Coded Allergies: ASPIRIN (Verified Allergy, Unknown, 04/18/12) IBUPROFEN (Verified Allergy, Unknown, 04/13/15) Patient History Past Medical History: see triage record, old chart reviewed Past Surgical History: none Pertinent Family History: none Social History: Denies: smoking Last Menstrual Period: 08/10/18 Now: No Immunizations: other Reviewed Nursing Documentation: PMH: Agreed; PSxH: Agreed Nursing Documentation-PMH Past Medical History: No History, Except For Hx Cardiac Problems: No Hx Cancer: No Hx Gastrointestinal Problems: Yes - GASTRITIS Hx Neurological Problems: No Review of Systems Eye: Denies: eye pain, blurred vision ENT: Denies: ear pain, nose congestion, throat swelling Respiratory: Denies: cough, shortness of breath Cardiovascular: Denies: chest pain, palpitations Gastrointestinal: Reports: abdominal pain, diarrhea, nausea, vomiting Musculoskeletal: Denies: back pain, joint pain Skin: Denies: rash Neurological: Denies: headache, numbness Endocrine: Denies: increased thirst, increased urine Hematologic/Lymphatic: Denies: easy bruising All Other Systems: negative except mentioned in HPI Physical Exam Vital Signs Date Time Temp Pulse Resp B/P (MAP) Pulse Ox O2 Delivery O2 Flow Rate FiO2 08/15/18 03:53 98.4 102 12 140/86 97 Room Air vitals normal Sp02 EP Interpretation: reviewed, normal General Appearance: well appearing, no apparent distress, alert Head: normocephalic, atraumatic Eyes: bilateral eye PERRL, bilateral eye EOMI ENT: hearing grossly normal, normal pharynx Neck: full range of motion, supple, no meningismus Respiratory: chest non-tender, lungs clear, normal breath sounds Cardiovascular #1: regular rate, rhythm, no murmur Gastrointestinal: no mass, no organomegaly, no bruit, non-distended, tenderness - Diffuse, decreased bowel sounds Musculoskeletal: back normal, gait/station normal, normal range of motion Psychiatric: mood/affect normal Skin: warm/dry Medical Decision Making Diagnostic Impression: Primary Impression: Abdominal pain Qualified Codes: R10.32 - Left lower quadrant pain Additional Impression: Opioid dependence Qualified Codes: F11.20 - Opioid dependence, uncomplicated ER Course Patient presents with exacerbation of chronic pain. She had multiple ultrasound and CT scan. No evidence of any obstruction or acute abdomen. There is no evidence of any fibroid uterus on the ultrasound. She's been here and at [facility]. She has multiple different prescription for controlled substance on the [employer] system. Most recently she receive 40 tablets of hydrocodone . This was on 08/07/2018. She claimed that she did not get this. Lab Results Impression labs unremarkable Last Vital Signs Date Time Temp Pulse Resp B/P (MAP) Pulse Ox O2 Delivery O2 Flow Rate FiO2 08/15/18 04:01 98.4 102 12 140/86 97 Room Air Status: improved Disposition: HOME, SELF-CARE Condition: Stable Scripts Acetaminophen* (ACETAMINOPHEN EXTRA STRENGTH*) 500 Mg Tablet 500 MG ORAL Q8H PRN for Fever/Headache/Mild Pain, #30 TAB Prov: Eduardo Chauhan MD 08/15/18 Patient Instructions: Abdominal Pain, Adult Additional Instructions: Follow-up your doctor within a week. You may benefit from referral to see a pain specialist. Return if symptom worsen. Eduardo Chauhan MD Aug 15, 2018 04:10
[2018-08-15] MEDS ORDERED: Morphine Sulfate 4mg/ml Inj (IV USE ONLY) IVP ONE ×2 (04:15→04:45)
--- NOTE | 2018-08-15 04:20 | NUR ---
ED Nurse Note: URINE AND BLOOD SPECIMEN SENT TO LAB
[2018-08-15 04:35] LABS: APPEARANCE,URINE CLEAR; BILIRUBIN, URINE NEGATIVE (NEGATIVE); COLOR,URINE PALE YELLOW; GLUCOSE, URINE (UA) NEGATIVE (NEGATIVE); KETONES,URINE NEGATIVE (NEGATIVE); LEUKOCYTE ESTERASE ,URINE 1+ (NEGATIVE); NITRITE,URINE NEGATIVE (NEGATIVE); PH,URINE 8 (4.5-8.0); PROTEIN,URINE NEGATIVE (NEGATIVE); UROBILINOGEN,URINE NORMAL MG/DL (0.0-1.0)
[2018-08-15 04:37] LABS: BASOPHILS % (AUTO) 0.8 % (0.0-2.0); HEMATOCRIT 36.9 % (37.0-47.0); HEMOGLOBIN 11.5 G/DL (12.0-16.0); LYMPHOCYTES % (AUTO) 17.1 % (20.0-45.0); MEAN CORPUSCULAR VOLUME 77 FL (80-99); MONOCYTES % (AUTO) 4.8 % (1.0-10.0); NEUTROPHILS % (AUTO) 74.3 % (45.0-75.0); PLATELET COUNT 310 K/UL (150-450); RED BLOOD COUNT 4.77 M/UL (4.20-5.40); RED CELL DISTRIBUTION WIDTH 17.2 % (11.6-14.8); WHITE BLOOD COUNT 10.6 K/UL (4.8-10.8)
[2018-08-15 04:52] LABS: ANION GAP 10 mmol/L (5-15); BLOOD UREA NITROGEN 9 mg/dL (7-18); CALCIUM 9.7 MG/DL (8.5-10.1); CARBON DIOXIDE 25 MMOL/L (21-32); CHLORIDE 102 MMOL/L (98-107); POTASSIUM 4.6 MMOL/L (3.5-5.1); SODIUM 137 MMOL/L (136-145)
[2018-08-15 04:56] LABS: ALANINE AMINOTRANSFERASE 26 U/L (12-78); ALBUMIN 3.7 G/DL (3.4-5.0); ALBUMIN/GLOBULIN RATIO 0.8 (1.0-2.7); ALKALINE PHOSPHATASE 41 U/L (46-116); ASPARTATE AMINO TRANSFERASE 26 U/L (15-37); BILIRUBIN,TOTAL 0.3 MG/DL (0.2-1.0)
[2018-08-15] MEDS ORDERED: ACETAMINOPHEN500 M3 ORAL (04:59)
[2018-08-15 05:09] VITALS: BP 130/57
--- NOTE | 2018-08-15 05:10 | NUR ---
ER DISCHARGE NOTE: Patient is cleared to be discharged per ERMD, pt is aox4, on room air, with stable vital signs. pt was given dc instructions, pt was able to verbalize understanding, pt id band and iv site removed without complications. pt is able to ambulate with steady gait. pt took all belongings.
== END 2018-08-15 05:10 | disposition home or self-care (01) ==
LOC: EMR 04:12
DX: R10.32 Left lower quadrant pain (principal); F11.20 Opioid dependence, uncomplicated; R11.2 Nausea with vomiting, unspecified; R19.7 Diarrhea, unspecified; Z88.6 Allergy status to analgesic agent
CPT/HCPCS: 36415; 80053; 81003; 81025; 83690; 85025; 96361; 96374; 96375; 99284; J2270; J2405

== ENCOUNTER 2018-09-27 09:36 | Emergency (ER) | payer MEDICAID ==
[~2018-09-27] VITALS: Ht 160 cm; Wt 113.4 kg
[~2018-09-27 09:36] MED LIST changes: +ACETAMINOPHEN500 M3 ORAL
[2018-09-27] MEDS ORDERED: NKM (09:40)
[2018-09-27 10:10] VITALS: BP 126/86
--- NOTE | 2018-09-27 10:10 | NUR ---
ED Nurse Note: pt came in due to right lower abdominal pain started yesterday accompanied by nausea and vomiting. pt stated she has not been able to take in food since yesterday and was vomiting many times, pt vs is within normal limits, pt able to give urine sample and noted with red color, pt stated that she was on her monthly perior. made aware. pt was seen by kyara, will continue to monitor.
[2018-09-27] MEDS ORDERED: Isovue-300 100ml vial INJ PRN (10:15)
--- NOTE | 2018-09-27 10:15 | Emergency Room Report ---
History of Present Illness General Chief Complaint: Abdominal Pain Source: Patient Present Illness HPI Patient is a 27-year-old female presented after increased epigastric pain. Patient had been brought in by EMS. She was noted to have multiple episodes of vomiting. She reports of increased generalized weakness. She states she had initially had a sore throat and subsequently developed epigastric pain associate with nausea vomiting. She reports only having a but denies of the prior surgeries. Allergies: Coded Allergies: ASPIRIN (Verified Allergy, Unknown, 04/18/12) IBUPROFEN (Verified Allergy, Unknown, 04/13/15) Patient History Past Medical History: see triage record Last Menstrual Period: 09/25/18 Reviewed Nursing Documentation: PMH: Agreed; PSxH: Agreed Nursing Documentation-PMH Past Medical History: No Stated History Hx Cardiac Problems: No Hx Cancer: No Hx Gastrointestinal Problems: Yes - GASTRITIS Hx Neurological Problems: No Review of Systems All Other Systems: negative except mentioned in HPI Physical Exam Vital Signs Date Time Temp Pulse Resp B/P (MAP) Pulse Ox O2 Delivery O2 Flow Rate FiO2 09/27/18 09:30 98.6 89 14 151/88 (109) 100 Room Air Sp02 EP Interpretation: reviewed, normal General Appearance: normal inspection, well appearing, no apparent distress, alert, GCS 15 Head: atraumatic ENT: normal ENT inspection, hearing grossly normal, normal voice Neck: normal inspection, full range of motion, supple, no bony tend Respiratory: normal inspection, lungs clear, normal breath sounds, no respiratory distress, no retraction, no wheezing Cardiovascular #1: regular rate, rhythm, no edema Gastrointestinal: normal inspection, normal bowel sounds, soft, no guarding, no hernia, tenderness - right lower abdomen Genitourinary: no CVA tenderness Musculoskeletal: normal inspection, back normal, normal range of motion Neurologic: normal inspection, alert, oriented x3, responsive, synthetic resin operator III-XII nml as tested, speech normal Psychiatric: normal inspection, judgement/insight normal, mood/affect normal Skin: normal inspection, normal color, no rash Medical Decision Making Diagnostic Impression: Primary Impression: Abdominal pain ER Course Patient presented for generalized body aches and abdominal pain. Differential diagnosis include was not limited to viral respiratory infection, marijuana hyperemesis, bowel obstruction, colitis among others. CT imaging of the abdomen pelvis read by radiology showed no evidence of acute bowel obstruction or appendicitis. Patient does not appear to have any evidence of sepsis. Blood count appear to be normal. Patient was started on IV fluids as well as IV hydration. She was given Tylenol for pain.Patient was noted to have some continued nausea was given further medications for nausea. Patient subsequently stated that she wanted to leave the hospital. Patient was noted to have no vomiting after medications. Patient appears to be stable for outpatient management. Labs Test 09/27/18 10:15 09/27/18 10:29 White Blood Count 9.3 K/UL (4.8-10.8) Red Blood Count 4.62 M/UL (4.20-5.40) Hemoglobin 11.0 G/DL (12.0-16.0) Hematocrit 35.7 % (37.0-47.0) Mean Corpuscular Volume 77 FL (80-99) Mean Corpuscular Hemoglobin 23.7 PG (27.0-31.0) Mean Corpuscular Hemoglobin Concent 30.7 G/DL (32.0-36.0) Red Cell Distribution Width 16.7 % (11.6-14.8) Platelet Count 308 K/UL (150-450) Mean Platelet Volume 8.2 FL (6.5-10.1) Neutrophils (%) (Auto) 76.3 % (45.0-75.0) Lymphocytes (%) (Auto) 16.0 % (20.0-45.0) Monocytes (%) (Auto) 4.7 % (1.0-10.0) Eosinophils (%) (Auto) 2.5 % (0.0-3.0) Basophils (%) (Auto) 0.5 % (0.0-2.0) Prothrombin Time 10.9 SEC (9.30-11.50) Prothromb Time International Ratio 1.0 (0.9-1.1) Activated Partial Thromboplast Time 29 SEC (23-33) Sodium Level 139 MMOL/L (136-145) Potassium Level 4.1 MMOL/L (3.5-5.1) Chloride Level 104 MMOL/L (98-107) Carbon Dioxide Level 29 MMOL/L (21-32) Anion Gap 6 mmol/L (5-15) Blood Urea Nitrogen 11 mg/dL (7-18) Creatinine 0.8 MG/DL (0.55-1.30) Estimat Glomerular Filtration Rate > 60 mL/min (>60) Glucose Level 114 MG/DL (74-106) Calcium Level 9.7 MG/DL (8.5-10.1) Total Bilirubin 0.1 MG/DL (0.2-1.0) Aspartate Amino Transf (AST/SGOT) 11 U/L (15-37) Alanine Aminotransferase (ALT/SGPT) 16 U/L (12-78) Alkaline Phosphatase 41 U/L (46-116) Total Protein 7.7 G/DL (6.4-8.2) Albumin 3.6 G/DL (3.4-5.0) Globulin 4.1 g/dL Albumin/Globulin Ratio 0.9 (1.0-2.7) Lipase 99 U/L (73-393) Urine Color Red Urine Appearance Cloudy Urine pH 8 (4.5-8.0) Urine Specific [place] 1.010 (1.005-1.035) Urine Protein 2+ (NEGATIVE) Urine Glucose (UA) Negative (NEGATIVE) Urine Ketones Negative (NEGATIVE) Urine Blood 5+ (NEGATIVE) Urine Nitrite Negative (NEGATIVE) Urine Bilirubin Negative (NEGATIVE) Urine Urobilinogen Normal MG/DL (0.0-1.0) Urine Leukocyte Esterase 2+ (NEGATIVE) Urine RBC Tntc /HPF (0 - 2) Urine WBC 2-4 /HPF (0 - 2) Urine Squamous Epithelial Cells Occasional /LPF Urine Bacteria Few /HPF (NONE) Urine HCG, Qualitative Negative (NEGATIVE) Last Vital Signs Date Time Temp Pulse Resp B/P (MAP) Pulse Ox O2 Delivery O2 Flow Rate FiO2 09/27/18 09:30 98.6 89 14 151/88 (109) 100 Room Air Status: improved Disposition: HOME, SELF-CARE Condition: Stable Scripts Ondansetron Odt* (ZOFRAN ODT*) 4 Mg Tab.rapdis 4 MG BC EVERY 8 HOURS PRN for Nausea & Vomiting, #10 TAB 0 Refills Prov: Dwight Pyle MD 09/27/18 Dwight Pyle MD Sep 27, 2018 10:15
--- NOTE | 2018-09-27 10:20 | NUR ---
ED Nurse Note: pt is nauseated, emesis bag given and pt has no emesis at this time, with orders from ermd, iv started on right ac, ivf started and pt given zofran iv. pt is complaining of 10/10 pain on the right lower abdomen, ermd made aware.
[2018-09-27 10:30] LABS: BASOPHILS % (AUTO) 0.5 % (0.0-2.0); EOSINOPHILS % (AUTO) 2.5 % (0.0-3.0); HEMATOCRIT 35.7 % (37.0-47.0); MEAN CORPUSCULAR VOLUME 77 FL (80-99); MONOCYTES % (AUTO) 4.7 % (1.0-10.0); NEUTROPHILS % (AUTO) 76.3 % (45.0-75.0); PLATELET COUNT 308 K/UL (150-450); RED BLOOD COUNT 4.62 M/UL (4.20-5.40); RED CELL DISTRIBUTION WIDTH 16.7 % (11.6-14.8); WHITE BLOOD COUNT 9.3 K/UL (4.8-10.8)
[2018-09-27 10:40] LABS: ANION GAP 6 mmol/L (5-15); BLOOD UREA NITROGEN 11 mg/dL (7-18); CALCIUM 9.7 MG/DL (8.5-10.1); CARBON DIOXIDE 29 MMOL/L (21-32); CHLORIDE 104 MMOL/L (98-107); CREATININE 0.8 MG/DL (0.55-1.30); POTASSIUM 4.1 MMOL/L (3.5-5.1); SODIUM 139 MMOL/L (136-145)
[2018-09-27 10:43] LABS: APPEARANCE,URINE CLOUDY; BILIRUBIN, URINE NEGATIVE (NEGATIVE); COLOR,URINE RED; GLUCOSE, URINE (UA) NEGATIVE (NEGATIVE); KETONES,URINE NEGATIVE (NEGATIVE); LEUKOCYTE ESTERASE ,URINE 2+ (NEGATIVE); NITRITE,URINE NEGATIVE (NEGATIVE); PH,URINE 8 (4.5-8.0); PROTEIN,URINE 2+ (NEGATIVE); UROBILINOGEN,URINE NORMAL MG/DL (0.0-1.0)
[2018-09-27 10:46] LABS: ALANINE AMINOTRANSFERASE 16 U/L (12-78); ALBUMIN 3.6 G/DL (3.4-5.0); ALBUMIN/GLOBULIN RATIO 0.9 (1.0-2.7); ALKALINE PHOSPHATASE 41 U/L (46-116); ASPARTATE AMINO TRANSFERASE 11 U/L (15-37); BILIRUBIN,TOTAL 0.1 MG/DL (0.2-1.0)
--- NOTE | 2018-09-27 10:48 | NUR ---
ED Nurse Note: CALLED CT TO CAPPER MACHINE OPERATOR PT. FOR CT OF THE ABDOMEN WITH CONTRAST
[2018-09-27] MEDS ORDERED: Dicyclomine HCl 10mg/5ml oral soln ORAL ONE (11:00)
--- NOTE | 2018-09-27 11:00 | NUR ---
ED Nurse Note: pt went to ct with tech
--- NOTE | 2018-09-27 11:07 | NUR ---
ED Nurse Note: pt went back from ct with tech
--- NOTE | 2018-09-27 11:10 | NUR ---
ED Nurse Note: pt medicated and tolerated well. will continue pt for pain and vomiting
--- NOTE | 2018-09-27 11:19 | Diagnostic Imaging Report ---
Indication: Abdominal pain Technique: Continuous helical transaxial imaging of the abdomen and pelvis was obtained from the lung bases to the pubic symphysis during intravenous contrast administration. Coronal 2-D reformats were also obtained. Study obtained in a Siemens sensation [address] Automatic Exposure Control was utilized. Total Dose length Product (DLP): 1001.[address] Dose Index Volume (CTDIvol): 18.6 mGy Comparison: 05/29/2018 Findings: Lung bases are clear. The liver and spleen are unremarkable. There is no nephrolithiasis or hydronephrosis appreciated. Appendix is normal. Uterus and the ovaries are unremarkable as visualized. Bladder is relatively nondistended. Bowel gas pattern is nonobstructive. There is no adrenal mass or splenomegaly. Pancreas is unremarkable. Gallbladder is contracted but otherwise unremarkable. There is no ascites. IMPRESSION: Negative examination. No acute findings. Normal appendix The CT scanner at [facility] is accredited by the [employer] and the scans are performed using dose optimization techniques as appropriate to a performed exam including Automatic Exposure control.
[2018-09-27] MEDS ORDERED: LR 1000ml 1,000 ML IV SCH (13:45)
[2018-09-27] MEDS ORDERED: Acetaminophen 500mg (ES) tab ORAL ONE (14:15)
[2018-09-27] MEDS ORDERED: Haloperidol Lactate 5 MG in D5W 55 ML IVPB ONE (14:15)
[2018-09-27] MEDS ORDERED: ONDANSETRON ODT4 MG BC (14:17)
[2018-09-27 14:30] VITALS: BP 125/75
--- NOTE | 2018-09-27 14:30 | NUR ---
ER DISCHARGE NOTE: pt stated that she wants to go home and not to finish the ivf and haldol drip, pt refuse tylenol po. anabelle packer made aware. Patient is cleared to be discharged per ERMD, pt is aox4, on room air, with stable vital signs. pt was given dc and prescription instructions, pt was able to verbalize understanding, pt id band and iv site removed without complications. pt is able to ambulate with steady gait. pt took all belongings.
== END 2018-09-27 14:30 | disposition home or self-care (01) ==
LOC: EDBD 09:36 → EMR 10:08
DX: R10.13 Epigastric pain (principal); R11.10 Vomiting, unspecified; Z88.6 Allergy status to analgesic agent
CPT/HCPCS: 36415; 74177; 80053; 81003; 81025; 83690; 85025; 85610; 85730; 96361; 96374; 96375; 99284; J1630; J2405; Q9967; S0028

== ENCOUNTER 2018-10-14 14:18 | Emergency (ER) | payer MEDICAID ==
[~2018-10-14] VITALS: Ht 160 cm; Wt 97.5 kg
[2018-10-14] MEDS ORDERED: IBUPROFEN600 MG ORAL (14:27)
--- NOTE | 2018-10-14 14:29 | NUR ---
ED Nurse Note: Patient walked into ED c/o sorethoat and right ear pain for 2 days. patient reports clear discharge from the right ear. patient is alert awake x4 ambulatory with steady gait, breathing unlabored and even.
[2018-10-14 14:30] VITALS: BP 121/68
--- NOTE | 2018-10-14 14:43 | Emergency Room Report ---
History of Present Illness General Chief Complaint: Earache Source: Patient Present Illness HPI 27-year-old female with no significant past medical history here complaining of 2 days of right-sided sore throat, right ear pain and pus drainage from the right ear. Patient reports that she had a cracked tooth 2 days ago called her dentist was unable to see her dentist however the dentist called in amoxicillin for her. Patient is rating the pain in her right ear 10 out of 10 without radiation denying tingling and numbness. Reports that she has been taking regular Tylenol for pain. Denies cough, congestion, shortness of breath, wheezing, nausea vomiting and abdominal pain. Cures was done on patient and she has an active prescription for Tylenol with codeine however patient denies of ever receiving it from the pharmacy is says that her eyes denies he is being used and she is not the one who is collecting all the narcotics. Allergies: Coded Allergies: ASPIRIN (Verified Allergy, Unknown, 04/18/12) IBUPROFEN (Verified Allergy, Unknown, 04/13/15) Patient History Past Medical History: see triage record Past Surgical History: unable to obtain Pertinent Family History: none Last Menstrual Period: 10/14/2018 Now: No Immunizations: UTD Reviewed Nursing Documentation: PMH: Agreed; PSxH: Agreed Nursing Documentation-PMH Past Medical History: No History, Except For Hx Cardiac Problems: No Hx Cancer: No Hx Gastrointestinal Problems: Yes - GASTRITIS Hx Neurological Problems: No Review of Systems All Other Systems: negative except mentioned in HPI Physical Exam Vital Signs Date Time Temp Pulse Resp B/P (MAP) Pulse Ox O2 Delivery O2 Flow Rate FiO2 10/14/18 14:23 99.0 88 20 127/78 (94) 98 Room Air Sp02 EP Interpretation: reviewed, normal General Appearance: normal inspection, well appearing, no apparent distress, alert, GCS 15 Head: normocephalic, atraumatic Eyes: bilateral eye normal inspection, bilateral eye PERRL ENT: uvula midline, nasal congestion, tonsillar swelling, pharyngeal erythema, tonsillar exudate, other - Pus drainage from right ear tragus tender to palpation bulging TM Neck: normal inspection, full range of motion, supple, no bony tend Respiratory: normal inspection, chest non-tender, lungs clear, normal breath sounds, no rhonchi, no wheezing Cardiovascular #1: normal inspection, normal peripheral pulses, regular rate, rhythm, no gallop, normal capillary refill Gastrointestinal: normal inspection, non tender, soft Rectal: deferred Musculoskeletal: normal inspection, back normal, digits/nails normal Neurologic: normal inspection, alert, oriented x3 Psychiatric: normal inspection, judgement/insight normal Skin: normal inspection, normal color, no rash, warm/dry, palpation normal Lymphatic: normal inspection, no adenopathy Medical Decision Making PA Attestation All my diagnosis and treatment plans were reviewed ad discussed with my supervising physician Dr. Pyle Diagnostic Impression: Primary Impression: otitis media Additional Impressions: Acute otitis externa Strep pharyngitis ER Course 27-year-old female with no significant past medical history here complaining of 2 days of right-sided sore throat, right ear pain and pus drainage from the right ear. Patient reports that she had a cracked tooth 2 days ago called her dentist was unable to see her dentist however the dentist called in amoxicillin for her. Patient is rating the pain in her right ear 10 out of 10 without radiation denying tingling and numbness. Reports that she has been taking regular Tylenol for pain. Denies cough, congestion, shortness of breath, wheezing, nausea vomiting and abdominal pain. Cures was done on patient and she has an active prescription for Tylenol with codeine however patient denies of ever receiving it from the pharmacy is says that her eyes denies he is being used and she is not the one who is collecting all the narcotics. Ddx considered but are not limited to: strep pharyngitis, URI, tonsilitis, peritonsillar absacess, influneza, otitis media, otitis externa, TM perforation Vital signs: are WNL, pt. is afebrile H&PE are most consistent with: otitus media, otitis externa, pharyngitis ORDERS: Augmentin, Tylenol, polymycin neomycin otic drops ED INTERVENTIONS: None required at this time. DISCHARGE: At this time pt. is stable for d/c to home. Will provide printed patient care instructions, and any necessary prescriptions. Care plan and follow up instructions have been discussed with the patient prior to discharge. I explained to the patient that at this point it is illegal to write for more narcotics as there is an active prescription for Tylenol 3 regardless of identity theft patient has to call insurance and resolves the issue also follow- up with your dentist and your primary care physician as your dental infection can be contributing to an abscess formation and drainage to ear Last Vital Signs Date Time Temp Pulse Resp B/P (MAP) Pulse Ox O2 Delivery O2 Flow Rate FiO2 10/14/18 14:30 99.0 78 18 121/68 98 Room Air Disposition: HOME, SELF-CARE Condition: Stable Scripts Acetaminophen* (TYLENOL EXTRA STRENGTH*) 500 Mg Tablet 500 MG ORAL Q6H PRN for Mild Pain/Temp > 100.5, #30 TAB 0 Refills Prov: Amy Sanchez 10/14/18 Neomycin/Polymyxin B Sulf/Hc ([id number] EAR SOLN) 10 Ml Solution 2 DROP OT BID for 7 Days, #10 ML Prov: Amy Sanchez 10/14/18 Amoxicillin/Potassium Clav 875-125* (AUGMENTIN 875-125 TABLET*) 1 Each Tablet 1 TAB ORAL TWICE A DAY for 10 Days, #20 TAB Prov: Amy Sanchez 10/14/18 Patient Instructions: Otitis Externa, [id number], Otitis Media, Adult, Easy- to-Read, Strep Throat, [id number] Additional Instructions: Take medication as directed follow-up with your primary care provider as well as with your dentist the infection in your mouth has caused sinus infection and right ear infection to target your ear from both sides due to pus drainage as well as infection follow-up with a ear nose throat doctor. Amy Sanchez Oct 14, 2018 14:43
[2018-10-14] MEDS ORDERED: AUGMENTIN 875-1 EAC1 ORAL (14:50)
[2018-10-14] MEDS ORDERED: TYLENOL EXTRA500 MG ORAL (14:50)
[2018-10-14] MEDS ORDERED: NEOMYCIN-POLYMY10 ML OT (14:50)
[2018-10-14 14:59] VITALS: BP 121/68
--- NOTE | 2018-10-14 15:00 | NUR ---
ER DISCHARGE NOTE: Patient is cleared to be discharged per MELODY FELIPE, pt is aox4, on room air, with stable vital signs. pt was given dc and prescription instructions, pt was able to verbalize understanding, pt id band removed without complications. pt is able to ambulate with steady gait. pt took all belongings.
== END 2018-10-14 14:58 | disposition home or self-care (01) ==
LOC: EMR 14:30
DX: H66.91 Otitis media, unspecified, right ear (principal); H60.501 Unspecified acute noninfective otitis externa, right ear; J02.0 Streptococcal pharyngitis; Z88.6 Allergy status to analgesic agent
CPT/HCPCS: 99283

== ENCOUNTER 2018-10-19 13:31 | Emergency (ER) | payer MEDICAID ==
[~2018-10-19] VITALS: Ht 160 cm; Wt 117.9 kg
[~2018-10-19 13:31] MED LIST changes: +NEOMYCIN-POLYMY10 ML OT
[2018-10-19 13:38] VITALS: BP 133/88
--- NOTE | 2018-10-19 13:47 | NUR ---
ED Nurse Note: Patient presents to ER due to low abdominal pain, vaginal discharge, white with foul odor x 3 days. Reports no fever or chills. Patient also c/o frequnt, painful urination. No facial grimacin or guarding noted.
[2018-10-19 14:19] LABS: APPEARANCE,URINE CLEAR; BILIRUBIN, URINE NEGATIVE (NEGATIVE); COLOR,URINE PALE YELLOW; GLUCOSE, URINE (UA) NEGATIVE (NEGATIVE); KETONES,URINE NEGATIVE (NEGATIVE); LEUKOCYTE ESTERASE ,URINE 1+ (NEGATIVE); NITRITE,URINE NEGATIVE (NEGATIVE); PH,URINE 6 (4.5-8.0); PROTEIN,URINE NEGATIVE (NEGATIVE); UROBILINOGEN,URINE NORMAL MG/DL (0.0-1.0)
--- NOTE | 2018-10-19 14:37 | Emergency Room Report ---
History of Present Illness General Chief Complaint: Female Urogenital Problems Source: Patient Present Illness HPI 27 YO Female presents to the ED c/o vaginal irritation/ discomfort, x 3 days. pt. reports vaginal d/c as well. she is concerned for STi and wants to be treated. Pt. also reports hx of Herpes. She denies burning sensation reports severe itching of the areas on the labia and her buttock with rash. Pt. denies fevers, chills or swollen tender lymph nodes. Denies lesions/rashes elsewhere on the body. Denies new medications or body washes or creams. Denies swelling of the lips, tongue , throat or airway. Denies wheezing, or shortness of breath. Denies recent travel, recent illness or ill contacts. denies blisters , oral lesions, or sloughing of the skin. She reports recent abx use after having dental procedure performed. Allergies: Coded Allergies: ASPIRIN (Verified Allergy, Unknown, 04/18/12) IBUPROFEN (Verified Allergy, Unknown, 04/13/15) Patient History Past Medical History: see triage record Past Surgical History: none Pertinent Family History: none Last Menstrual Period: 09/23/18 Reviewed Nursing Documentation: PMH: Agreed; PSxH: Agreed Nursing Documentation-PMH Past Medical History: No History, Except For Hx Cardiac Problems: No Hx Cancer: No Hx Gastrointestinal Problems: Yes - GASTRITIS Hx Neurological Problems: No Review of Systems All Other Systems: negative except mentioned in HPI Physical Exam Vital Signs Date Time Temp Pulse Resp B/P (MAP) Pulse Ox O2 Delivery O2 Flow Rate FiO2 10/19/18 13:38 98.2 100 18 133/88 (103) 99 Room Air Sp02 EP Interpretation: reviewed, normal General Appearance: no apparent distress, alert, GCS 15, non-toxic Head: normocephalic, atraumatic Eyes: bilateral eye normal inspection, bilateral eye PERRL ENT: hearing grossly normal, normal voice Neck: full range of motion Respiratory: lungs clear, normal breath sounds, speaking full sentences Cardiovascular #1: regular rate, rhythm Gastrointestinal: normal bowel sounds, non tender, soft Genitourinary: normal inspection, no CVA tenderness, cervix normal, urethra normal, other - milky white vaginal d/c noted. Musculoskeletal: back normal, gait/station normal, normal range of motion, non- tender Neurologic: alert, oriented x3, responsive, motor strength/tone normal, sensory intact, speech normal, grossly normal Psychiatric: judgement/insight normal Skin: normal color, no rash, warm/dry, well hydrated, other - two areas of small vessicular patches where vessicles are arranged linear. - excoriations, not tender to the touch. no crusting or evidence of secondary infection. Lymphatic: no adenopathy Medical Decision Making PA Attestation Dr. Braun is my supervising Physician whom patient management has been discussed with. Diagnostic Impression: Primary Impression: Vaginitis Qualified Codes: N76.0 - Acute vaginitis Additional Impression: Contact with or exposure to venereal diseases ER Course 27 YO Female presents to the ED c/o vaginal irritation/ discomfort, x 3 days. pt. reports vaginal d/c as well. she is concerned for STi and wants to be treated. Pt. also reports hx of Herpes. She denies burning sensation reports severe itching of the areas on the labia and her buttock with rash. Pt. denies fevers, chills or swollen tender lymph nodes. Denies lesions/rashes elsewhere on the body. Denies new medications or body washes or creams. Denies swelling of the lips, tongue , throat or airway. Denies wheezing, or shortness of breath. Denies recent travel, recent illness or ill contacts. denies blisters , oral lesions, or sloughing of the skin. She reports recent abx use after having dental procedure performed. Ddx considered but are not limited to UTi , Pyelo, STI, Stone, Cystitis, vaginal laceration, vaginitis. Vital signs: are WNL, pt. is afebrile H& PE are most consistent with: Vaginitis ORDERS: - UA labs are attached : WNL/unremarkable - Wet [place] : some bacteria, few yeast, no clue cells, no trich. -Urine Hcg: Negative ED INTERVENTIONS: -Rocephin IM -Azithromycin PO DISCHARGE: At this time pt. is stable for d/c to home. Will provide printed patient care instructions, and any necessary prescriptions. Care plan and follow up instructions have been discussed with the patient prior to discharge. discussed with the patient prior to discharge. Labs Test 10/19/18 13:55 Urine Color Pale yellow Urine Appearance Clear Urine pH 6 (4.5-8.0) Urine Specific Vesper 1.020 (1.005-1.035) Urine Protein Negative (NEGATIVE) Urine Glucose (UA) Negative (NEGATIVE) Urine Ketones Negative (NEGATIVE) Urine Blood Negative (NEGATIVE) Urine Nitrite Negative (NEGATIVE) Urine Bilirubin Negative (NEGATIVE) Urine Urobilinogen Normal MG/DL (0.0-1.0) Urine Leukocyte Esterase 1+ (NEGATIVE) Urine RBC 0-2 /HPF (0 - 2) Urine WBC 2-4 /HPF (0 - 2) Urine Squamous Epithelial Cells Few /LPF (NONE/OCC) Urine Bacteria Few /HPF (NONE) Urine HCG, Qualitative Negative (NEGATIVE) Last Vital Signs Date Time Temp Pulse Resp B/P (MAP) Pulse Ox O2 Delivery O2 Flow Rate FiO2 10/19/18 13:38 98.2 18 133/88 99 Room Air 10/19/18 13:38 100 Disposition: HOME, SELF-CARE Condition: Stable Scripts Clotrimazole* (LOTRIMIN*) 15 Gm Cream..g. 1 APPLIC TOPIC TWICE A DAY, #15 GM Prov: Brook Woods 10/19/18 Acyclovir* (ZOVIRAX*) 800 Mg Tablet 800 MG ORAL FIVE TIMES A DAY for 7 Days, #35 TAB Prov: Brook Woods 10/19/18 Fluconazole (FLUCONAZOLE) 100 Mg Tablet 100 MG ORAL DAILY for 3 Days, #3 TAB 0 Refills Prov: Brook Woods 10/19/18 Additional Instructions: Take medications as directed. Follow up with a Primary Care Provider in 3-5 days, even if your symptoms have resolved. --Please review list of primary care clinics, if you do not already have a primary care provider Return sooner to ED if new symptoms occur, or current symptoms become worse. - Please note that this Emergency Department Report was dictated using The [employer] slab operator technology software, occasionally this can lead to erroneous entry secondary to interpretation by the dictation equipment. Brook Woods Oct 19, 2018 14:37
[2018-10-19] MEDS ORDERED: Azithromycin 250mg tab ORAL ONE (14:45)
[2018-10-19] MEDS ORDERED: Lidocaine 1% MPF 10mg/ml 5ml INJ ONE (14:45)
[2018-10-19] MEDS ORDERED: ACYCLOVIR800 MG ORAL (14:47)
[2018-10-19] MEDS ORDERED: CLOTRIMAZOLE15 GM TOPIC (14:47)
[2018-10-19] MEDS ORDERED: FLUCONAZOLE100 MG ORAL (14:47)
--- NOTE | 2018-10-19 15:06 | NUR ---
ED Nurse Note: Patient is being discharged from medical care. D/C instruction and prescription given to patient. All questions were answered. ID band removed. Ambulating out with steady gait with all her belongings.
== END 2018-10-19 15:05 | disposition home or self-care (01) ==
LOC: EMR 14:28
DX: N76.0 Acute vaginitis (principal); Z20.2 Contact with and (suspected) exposure to infections with a predominantly sexual mode of transmission; Z88.6 Allergy status to analgesic agent
CPT/HCPCS: 81003; 81025; 87210; 96372; 96374; 99284; J0696; Q0144

== ENCOUNTER 2018-10-30 18:21 | Emergency (ER) | payer MEDICAID ==
[~2018-10-30] VITALS: Ht 160 cm; Wt 117.9 kg
[~2018-10-30 18:21] MED LIST changes: +ACYCLOVIR800 MG ORAL; +CLOTRIMAZOLE15 GM TOPIC; +FLUCONAZOLE100 MG ORAL
[2018-10-30 18:30] VITALS: BP 146/87
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
--- NOTE | 2018-10-30 18:42 | NUR ---
ED Nurse Note: pt went down to xray with tech
--- NOTE | 2018-10-30 18:49 | NUR ---
ED Nurse Note: pt came back from xray
--- NOTE | 2018-10-30 18:50 | NUR ---
ED Nurse Note: pt able to give urine sample and was sent to lab
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
[2018-10-30] MEDS ORDERED: ROBAXIN-750750 MG PO (19:10)
[2018-10-30] MEDS ORDERED: 8 HOUR650 MG ORAL (19:10)
[2018-10-30 19:15] VITALS: BP 146/87
--- NOTE | 2018-10-30 19:15 | NUR ---
ER DISCHARGE NOTE: Patient is cleared to be discharged per ERMD, pt is aox4, on room air, with stable vital signs. pt was given dc and prescription instructions, pt was able to verbalize understanding, pt id band removed. pt is able to ambulate with steady gait. pt took all belongings.
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
== END 2018-10-30 19:15 | disposition home or self-care (01) ==
LOC: EMR 19:09
DX: S16.1XXA Strain of muscle, fascia and tendon at neck level, initial encounter (principal); V43.52XA Car driver injured in collision with other type car in traffic accident, initial encounter; Y92.410 Unspecified street and highway as the place of occurrence of the external cause; Z88.6 Allergy status to analgesic agent
CPT/HCPCS: 72040; 81025; 99283

== ENCOUNTER 2019-02-23 02:04 | Emergency (ER) | payer SELFPAY ==
[~2019-02-23] VITALS: Ht 160 cm; Wt 127.0 kg
[~2019-02-23 02:04] MED LIST changes: +8 HOUR650 MG ORAL; +ROBAXIN-750750 MG PO
[2019-02-23 02:15] VITALS: BP 152/84
--- NOTE | 2019-02-23 02:15 | NUR ---
ED Nurse Note: Pt walked in to ED for sore throat, cough, body ache x 3 days. pt is alert x4.
--- NOTE | 2019-02-23 02:28 | Emergency Room Report ---
History of Present Illness General Chief Complaint: Flu Like Symptoms Source: Patient Present Illness [facility] This is a 28-year-old female with a history of gastritis. She presents with chief complaint of fever chills, body pain, vomiting. Onset for last 4 days. Also with cough and sore throat. Pain is 9 out of 10. Is nonbloody nonbilious. No diarrhea. Coughing is nonproductive in nature. Over-the- counter Tylenol and Motrin not helping. Allergies: Coded Allergies: ASPIRIN (Verified Allergy, Unknown, 04/18/12) Patient History Past Medical History: see triage record, old chart reviewed Past Surgical History: none Pertinent Family History: none Social History: Denies: smoking Last Menstrual Period: 02/23/19 Now: No : 1 Para: 1 Immunizations: other Reviewed Nursing Documentation: PMH: Agreed; PSxH: Agreed Nursing Documentation-PMH Past Medical History: No History, Except For Hx Cardiac Problems: No Hx Cancer: No Hx Gastrointestinal Problems: Yes - GASTRITIS Hx Neurological Problems: No Review of Systems Constitutional: Reports: chills, fever Eye: Denies: eye pain, blurred vision ENT: Reports: throat pain; Denies: ear pain, nose congestion, throat swelling Respiratory: Denies: cough, shortness of breath Cardiovascular: Denies: chest pain, palpitations Gastrointestinal: Reports: abdominal pain, nausea, vomiting; Denies: diarrhea Musculoskeletal: Denies: back pain, joint pain Skin: Denies: rash Neurological: Denies: headache, numbness Endocrine: Denies: increased thirst, increased urine Hematologic/Lymphatic: Denies: easy bruising All Other Systems: negative except mentioned in HPI Physical Exam Vital Signs Date Time Temp Pulse Resp B/P (MAP) Pulse Ox O2 Delivery O2 Flow Rate FiO2 02/23/19 02:09 98.1 128 20 158/88 (111) 98 Room Air 02/23/19 02:15 98 Vitals with tachycardia and high blood pressure Sp02 EP Interpretation: reviewed, normal General Appearance: well appearing, no apparent distress, alert Head: normocephalic, atraumatic Eyes: bilateral eye PERRL, bilateral eye EOMI ENT: hearing grossly normal, normal pharynx Neck: full range of motion, supple, no meningismus Respiratory: chest non-tender, lungs clear, normal breath sounds Cardiovascular #1: regular rate, rhythm, no murmur Gastrointestinal: non tender, no mass, no organomegaly, no bruit, non-distended , tenderness - Mild, diffuse, decreased bowel sounds Musculoskeletal: back normal, gait/station normal, normal range of motion Psychiatric: anxious Medical Decision Making Diagnostic Impression: Primary Impression: Influenza-like symptoms ER Course Presents with flulike illness. Most likely viral in nature. Her IV fluid and pain medication. No evidence of acute abdomen. Will discharge home. Last Vital Signs Date Time Temp Pulse Resp B/P (MAP) Pulse Ox O2 Delivery O2 Flow Rate FiO2 02/23/19 02:15 99 20 Room Air 98 02/23/19 02:15 98.2 152/84 98 Status: improved Disposition: HOME, SELF-CARE Condition: Stable Scripts Ibuprofen* (MOTRIN*) 600 Mg Tablet 600 MG ORAL THREE TIMES A DAY, #30 TAB 0 Refills Prov: Eduardo Chauhan MD 02/23/19 Ondansetron (Zofran) 4 Mg Tablet 4 MG ORAL Q6H PRN for Nausea & Vomiting, #10 TAB 0 Refills Prov: Eduardo Chauhan MD 02/23/19 Additional Instructions: advance diet as tolerated. Follow-up with your doctor in 7 days. Return if worse. Eduardo Chauhan MD Feb 23, 2019 02:28
[2019-02-23] MEDS ORDERED: Ketorolac 30mg Inj IV ONE (02:30)
--- NOTE | 2019-02-23 02:30 | NUR ---
ED Nurse Note: blood sample sent down to lab. pt unable to urinate at this time. pt is aware to notify staff when she is ready to provide urine.
--- NOTE | 2019-02-23 02:45 | NUR ---
ED Nurse Note: all due medication given at this time. pt is in bed resting. no acute distress is noted.
[2019-02-23 02:46] LABS: EOSINOPHILS % (AUTO) 2.1 % (0.0-3.0); HEMOGLOBIN 13.1 G/DL (12.0-16.0); LYMPHOCYTES % (AUTO) 21.2 % (20.0-45.0); MEAN CORPUSCULAR VOLUME 75 FL (80-99); MONOCYTES % (AUTO) 11.3 % (1.0-10.0); NEUTROPHILS % (AUTO) 64.4 % (45.0-75.0); PLATELET COUNT 400 K/UL (150-450); RED BLOOD COUNT 5.47 M/UL (4.20-5.40); RED CELL DISTRIBUTION WIDTH 16.3 % (11.6-14.8); WHITE BLOOD COUNT 11.8 K/UL (4.8-10.8)
[2019-02-23 02:50] LABS: ANION GAP 13 mmol/L (5-15); BLOOD UREA NITROGEN 15 mg/dL (7-18); CALCIUM 9.2 MG/DL (8.5-10.1); CARBON DIOXIDE 21 MMOL/L (21-32); CHLORIDE 104 MMOL/L (98-107); CREATININE 1.3 MG/DL (0.55-1.30); POTASSIUM 3.5 MMOL/L (3.5-5.1); SODIUM 138 MMOL/L (136-145)
[2019-02-23 02:55] LABS: ALANINE AMINOTRANSFERASE 53 U/L (12-78); ALBUMIN/GLOBULIN RATIO 0.9 (1.0-2.7); ALKALINE PHOSPHATASE 52 U/L (46-116); ASPARTATE AMINO TRANSFERASE 28 U/L (15-37); BILIRUBIN,TOTAL 0.2 MG/DL (0.2-1.0)
[2019-02-23] MEDS ORDERED: HYDROmorphone 1mg/ml Carpuject ONE (03:08)
[2019-02-23] MEDS ORDERED: HYDROmorphone 1mg/ml Carpuject IVP ONE (03:15)
[2019-02-23] MEDS ORDERED: ZOFRAN4 MG ORAL (03:36)
[2019-02-23] MEDS ORDERED: IBUPROFEN600 MG ORAL (03:36)
--- NOTE | 2019-02-23 03:40 | NUR ---
ER DISCHARGE NOTE: Patient is cleared to be discharged per ERMD, pt is aox4, on room air, with stable vital signs. pt was given dc and prescription instructions, pt was able to verbalize understanding, pt id band and iv site removed without complications. pt is able to ambulate with steady gait. pt took all belongings.
[2019-02-23 03:43] VITALS: BP 148/80
== END 2019-02-23 03:40 | disposition home or self-care (01) ==
LOC: EMR 02:15
DX: J11.1 Influenza due to unidentified influenza virus with other respiratory manifestations (principal); Z88.6 Allergy status to analgesic agent
CPT/HCPCS: 36415; 80053; 81025; 85025; 86710; 96361; 96374; 96375; 96376; 99284; J1170; J1885; J2405; J7030

== ENCOUNTER 2019-05-13 01:49 | Emergency (ER) | payer SELFPAY ==
[~2019-05-13] VITALS: Ht 165.1 cm; Wt 74.8 kg
[2019-05-13 01:53] VITALS: BP 128/80
--- NOTE | 2019-05-13 01:53 | NUR ---
ED Nurse Note: Patient walked into ED c/o SOB x30 minutes ago. Patient appears to be anxious. Sat 98%, RA. Afebrile. Not in any distress. VSS. ERMD at bedside.
[2019-05-13] MEDS ORDERED: Albuterol ud Inhalation HHN ONE (02:00)
--- NOTE | 2019-05-13 02:02 | NUR ---
ED Nurse Note: RT at bedside fro breathing tx.
[2019-05-13] MEDS ORDERED: ONDANSETRON ODT4 MG BC (02:30)
[2019-05-13] MEDS ORDERED: NEXAFED30 MG ORAL (02:30)
--- NOTE | 2019-05-13 02:31 | Emergency Room Report ---
History of Present Illness General Chief Complaint: Dyspnea/Respdistress Source: Patient, Medical Record Present Illness HPI This a 28-year-old female with history of gastritis. She presents with chief complaint of shortness of breath. She says she is been sick for the last 3 days. Her nose very stuffy. She been taking NyQuil and Benadryl for this. She woke up because she could not breathe. She got chest tightness. Coughing but nothing coming up. Nose very stuffy. With nausea and vomiting. No abdominal pain. No fever chills. Denies any other complaint. Never had this problem before. Not on control pill. Now she has dizziness and tingliness to her body. Also with muscle cramping in her hands. Allergies: Coded Allergies: ASPIRIN (Verified Allergy, Unknown, 04/18/12) Patient History Past Medical History: see triage record, old chart reviewed Past Surgical History: none Pertinent Family History: none Social History: Denies: smoking Last Menstrual Period: unk Now: No Immunizations: other Reviewed Nursing Documentation: PMH: Agreed; PSxH: Agreed Nursing Documentation-PMH Hx Cardiac Problems: No Hx Cancer: No Hx Gastrointestinal Problems: Yes - GASTRITIS Hx Neurological Problems: No Review of Systems Eye: Denies: eye pain, blurred vision ENT: Denies: ear pain, nose congestion, throat swelling Respiratory: Reports: cough, shortness of breath Cardiovascular: Denies: chest pain, palpitations Gastrointestinal: Reports: nausea, vomiting; Denies: abdominal pain, diarrhea Musculoskeletal: Denies: back pain, joint pain Skin: Denies: rash Neurological: Denies: headache, numbness Endocrine: Denies: increased thirst, increased urine Hematologic/Lymphatic: Denies: easy bruising All Other Systems: negative except mentioned in HPI Physical Exam Vital Signs Date Time Temp Pulse Resp B/P (MAP) Pulse Ox O2 Delivery O2 Flow Rate FiO2 05/13/19 01:50 97.9 114 26 128/80 (96) 95 Room Air 05/13/19 02:09 21 Vitals with tachycardia Sp02 EP Interpretation: reviewed, normal General Appearance: well appearing, no apparent distress, alert Head: normocephalic, atraumatic Eyes: bilateral eye PERRL, bilateral eye EOMI ENT: hearing grossly normal, normal pharynx Neck: full range of motion, supple, no meningismus Respiratory: chest non-tender, lungs clear, normal breath sounds Cardiovascular #1: regular rate, rhythm, no murmur Gastrointestinal: normal bowel sounds, non tender, no mass, no organomegaly, no bruit, non-distended Musculoskeletal: back normal, normal range of motion, gait/station normal Psychiatric: anxious - Very anxious Medical Decision Making Diagnostic Impression: Primary Impression: Dyspnea Qualified Codes: R06.00 - Dyspnea, unspecified Additional Impressions: VIRAL SYNDROME Panic attack ER Course Patient with a viral illness. Her lungs are clear. Oxygenation is 100%. She is very anxious. She refused Ativan here. No evidence of ACS, PE, dissection to name a few. Better now. She requested a breathing treatments I gave her 1. Last Vital Signs Date Time Temp Pulse Resp B/P (MAP) Pulse Ox O2 Delivery O2 Flow Rate FiO2 05/13/19 02:09 98 17 100 Room Air 21 95 18 100 05/13/19 01:53 97.9 128/80 Status: improved Disposition: HOME, SELF-CARE Condition: Stable Scripts Ondansetron Odt* (ZOFRAN ODT*) 4 Mg Tab.rapdis 4 MG BC EVERY 6 HOURS PRN for Nausea & Vomiting, #10 TAB 0 Refills Prov: Eduardo Chauhan MD 05/13/19 Pseudoephedrine Hcl* (NEXAFED*) 30 Mg Tablet 60 MG ORAL Q6H PRN for congestion, #30 TAB Prov: Eduardo Chauhan MD 05/13/19 Additional Instructions: Follow-up with your doctor in 7 days. Return if symptoms worsen. Eduardo Chauhan MD May 13, 2019 02:31
[2019-05-13 02:37] VITALS: BP 119/70
--- NOTE | 2019-05-13 02:37 | NUR ---
ED Nurse Note: Pt cleared by ERMD for discharge. DC instructions/prescription was given and explained to pt and verbalized understanding of teachings. All medical deviecs such as ID band removed. Pt is AAO x4, ambulatory and left with all personal belongings. Picked up by her sister.
[2019-05-15] MEDS ORDERED: ATIVAN0.5 MG ORAL (02:37)
[2019-05-15] MEDS ORDERED: MACROBID100 MG ORAL (02:37)
== END 2019-05-13 02:37 | disposition home or self-care (01) ==
LOC: EMR 01:59
DX: R06.00 Dyspnea, unspecified (principal); B34.9 Viral infection, unspecified; F41.0 Panic disorder [episodic paroxysmal anxiety]; Z88.6 Allergy status to analgesic agent; R11.2 Nausea with vomiting, unspecified
CPT/HCPCS: 99284

== ENCOUNTER 2019-05-23 | Emergency (ER) | payer OTHER, MEDICAID ==
[~2019-05-23] VITALS: Ht 160 cm; Wt 113.4 kg
[~2019-05-23] MED LIST changes: +ATIVAN0.5 MG ORAL; +MACROBID100 MG ORAL; +NEXAFED30 MG ORAL
[2019-05-23 00:05] VITALS: BP 138/85
--- NOTE | 2019-05-23 00:05 | NUR ---
ED Nurse Note: Patient was brought in by RA from home c/o anxiety x1 week. As per patient, she has been hyperventilating. Stated that losing her job is causing her anxiety. 1005 RA. Not in any distress. VSS. Will cont to monitor.
--- NOTE | 2019-05-23 00:10 | NUR ---
ED Nurse Note: ERMD at bedside.
[2019-05-23] MEDS ORDERED: LORazepam Inj 2mg/ml 1ml IV ONE (00:15)
--- NOTE | 2019-05-23 00:17 | Emergency Room Report ---
History of Present Illness General Chief Complaint: General Complaint Source: Patient, EMS Present Illness HPI Patient brought in for possible anxiety via EMS. She is been having epigastric pain with vomiting. She tried to eat something and to set off an anxiety feeling. She actually is to the point of having oral tingling and carpopedal spasms. She has been evaluated recently without any labs at other emergency departments. She never had this problem before last week to 2 weeks. She lost her job a month ago. She denies alcohol drugs or smoking. She has some tenderness in her calves but no edema. She feels this pain is more related to the fact that her feet are in spasm. During these episodes she also has palpitations. History of gastritis and asthma. And asthma. Last menstruation Tuesday. No rashes. No dysuria. No fevers, chills, sore throat, chest pain, diarrhea, dysuria, abdominal pain, joint pain, rashes, visual changes, dizziness, headache. Allergies: Coded Allergies: ASPIRIN (Verified Allergy, Unknown, 04/18/12) Patient History Past Medical History: see triage record Past Surgical History: Social History: Denies: smoking, alcohol use, drug use - See tox screen Social History Narrative Lost her job 1 month ago Now: No Reviewed Nursing Documentation: PMH: Agreed; PSxH: Agreed Nursing Documentation-PMH Hx Cardiac Problems: No Hx Asthma: Yes Hx Cancer: No Hx Gastrointestinal Problems: Yes - GASTRITIS Hx Neurological Problems: No Review of Systems All Other Systems: negative except mentioned in HPI Physical Exam Vital Signs Date Time Temp Pulse Resp B/P (MAP) Pulse Ox O2 Delivery O2 Flow Rate FiO2 05/23/19 00:00 97.9 112 24 138/85 (102) 98 Room Air Sp02 EP Interpretation: reviewed, normal General Appearance: well appearing, GCS 15, mild distress - Anxious Head: normocephalic Eyes: bilateral eye normal inspection, bilateral eye PERRL, bilateral eye EOMI ENT: moist mucus membranes Neck: supple Respiratory: lungs clear, normal breath sounds Cardiovascular #1: regular rate, rhythm Cardiovascular #2: 2+ radial (R) Gastrointestinal: normal inspection, normal bowel sounds, non tender, no mass, non-distended Musculoskeletal: back normal, normal range of motion, other - Carpal pedal spasms Neurologic: alert, motor strength/tone normal, 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 Differential includes gastritis, hyperventilation, electrolyte abnormality, hyperthyroidism, carditis amongst others. Evaluation with EKG and labs. Clinically there is no evidence of pulmonary embolus at this time. The patient will be treated with Pepcid and Ativan. EKG without injury. Labs remarkable for positive and positive tox screen for cocaine. Also there is leukocytosis without left shift. Potassium was low. Patient improved with treatment. Discussed results with patient. Discussed the need for outpatient follow-up. Patient stable for for outpatient observation and treatment. Laboratory Tests Test 05/23/19 00:22 05/23/19 01:14 White Blood Count 16.7 K/UL (4.8-10.8) H Red Blood Count 4.70 M/UL (4.20-5.40) Hemoglobin 11.5 G/DL (12.0-16.0) L Hematocrit 35.0 % (37.0-47.0) L Mean Corpuscular Volume 75 FL (80-99) L Mean Corpuscular Hemoglobin 24.5 PG (27.0-31.0) L Mean Corpuscular Hemoglobin Concent 32.9 G/DL (32.0-36.0) Red Cell Distribution Width 16.5 % (11.6-14.8) H Platelet Count 347 K/UL (150-450) Mean Platelet Volume 7.7 FL (6.5-10.1) Neutrophils (%) (Auto) 77.4 % (45.0-75.0) H Lymphocytes (%) (Auto) 17.0 % (20.0-45.0) L Monocytes (%) (Auto) 4.0 % (1.0-10.0) Eosinophils (%) (Auto) 1.0 % (0.0-3.0) Basophils (%) (Auto) 0.7 % (0.0-2.0) Sodium Level 140 MMOL/L (136-145) Potassium Level 2.8 MMOL/L (3.5-5.1) L Chloride Level 104 MMOL/L (98-107) Carbon Dioxide Level 21 MMOL/L (21-32) Anion Gap 15 mmol/L (5-15) Blood Urea Nitrogen 12 mg/dL (7-18) Creatinine 1.0 MG/DL (0.55-1.30) Estimate Glomerular Filtration Rate > 60 mL/min (>60) Glucose Level 114 MG/DL (74-106) H Calcium Level 9.1 MG/DL (8.5-10.1) Total Bilirubin 0.2 MG/DL (0.2-1.0) Aspartate Amino Transferase (AST) 15 U/L (15-37) Alanine Aminotransferase (ALT) 24 U/L (12-78) Alkaline Phosphatase 36 U/L (46-116) L Troponin I 0.000 ng/mL (0.000-0.056) Total Protein 8.4 G/DL (6.4-8.2) H Albumin 3.8 G/DL (3.4-5.0) Globulin 4.6 g/dL Albumin/Globulin Ratio 0.8 (1.0-2.7) L Lipase 97 U/L (73-393) Thyroid Stimulating Hormone (TSH) 1.282 uiU/mL (0.358-3.740) Urine Color Yellow Urine Appearance Slightly cloudy Urine pH 6.5 (4.5-8.0) Urine Specific [place] 1.015 (1.005-1.035) Urine Protein 2+ (NEGATIVE) H Urine Glucose (UA) Negative (NEGATIVE) Urine Ketones 1+ (NEGATIVE) H Urine Blood 2+ (NEGATIVE) H Urine Nitrite Negative (NEGATIVE) Urine Bilirubin Negative (NEGATIVE) Urine Urobilinogen Normal MG/DL (0.0-1.0) Urine Leukocyte Esterase 1+ (NEGATIVE) H Urine RBC 2-4 /HPF (0 - 2) H Urine WBC 2-4 /HPF (0 - 2) Urine Squamous Epithelial Cells Many /LPF (NONE/OCC) H Urine Bacteria Few /HPF (NONE) Urine HCG, Qualitative Positive (NEGATIVE) Urine Opiates Screen Negative (NEGATIVE) Urine Barbiturates Screen Negative (NEGATIVE) Phencyclidine (PCP) Screen Negative (NEGATIVE) Urine Amphetamines Screen Negative (NEGATIVE) Urine Benzodiazepines Screen Negative (NEGATIVE) Urine Cocaine Screen Positive (NEGATIVE) H Urine Marijuana (THC) Screen Negative (NEGATIVE) EKG Diagnostic Results Rate: tachycardiac Rhythm: NSR ST Segments: no acute changes Rhythm Strip Diag. Results EP Interpretation: yes Rhythm: no PVC's, no ectopy, other - Sinus tachycardia Last Vital Signs Date Time Temp Pulse Resp B/P (MAP) Pulse Ox O2 Delivery O2 Flow Rate FiO2 05/23/19 04:35 98.5 76 20 118/69 100 Room Air Status: improved Disposition: HOME, SELF-CARE Condition: Improved Scripts Acetaminophen (Tylenol) 325 Mg Tablet 650 MG ORAL Q6H PRN for Prn Pain/Headache/Temp > 101, #30 TAB 0 Refills Prov: Flo Chen MD 05/23/19 Famotidine* (Pepcid 20mg tablet*) 20 Mg Tablet 20 MG ORAL DAILY, #20 TAB 0 Refills Prov: Flo Chen MD 05/23/19 Vit #76/Iron,Carb/Fa (PRENATABS RX TABLET) 1 Each Tablet 1 EACH PO DAILY, #30 TAB Prov: Flo Chen MD 05/23/19 Flo Chen MD May 23, 2019 00:17
--- NOTE | 2019-05-23 00:28 | NUR ---
ED Nurse Note: IV line established. Blood specimen collected and sent to lab.
[2019-05-23 00:36] LABS: BASOPHILS % (AUTO) 0.7 % (0.0-2.0); HEMOGLOBIN 11.5 G/DL (12.0-16.0); MEAN CORPUSCULAR VOLUME 75 FL (80-99); NEUTROPHILS % (AUTO) 77.4 % (45.0-75.0); PLATELET COUNT 347 K/UL (150-450); RED CELL DISTRIBUTION WIDTH 16.5 % (11.6-14.8); WHITE BLOOD COUNT 16.7 K/UL (4.8-10.8)
[2019-05-23 00:47] LABS: ANION GAP 15 mmol/L (5-15); BLOOD UREA NITROGEN 12 mg/dL (7-18); CALCIUM 9.1 MG/DL (8.5-10.1); CARBON DIOXIDE 21 MMOL/L (21-32); CHLORIDE 104 MMOL/L (98-107); POTASSIUM 2.8 MMOL/L (3.5-5.1); SODIUM 140 MMOL/L (136-145)
[2019-05-23 00:59] LABS: ALANINE AMINOTRANSFERASE 24 U/L (12-78); ALBUMIN 3.8 G/DL (3.4-5.0); ALBUMIN/GLOBULIN RATIO 0.8 (1.0-2.7); ALKALINE PHOSPHATASE 36 U/L (46-116); ASPARTATE AMINO TRANSFERASE 15 U/L (15-37); BILIRUBIN,TOTAL 0.2 MG/DL (0.2-1.0)
[2019-05-23 01:23] LABS: APPEARANCE,URINE SLIGHTLY CLOUDY; BILIRUBIN, URINE NEGATIVE (NEGATIVE); GLUCOSE, URINE (UA) NEGATIVE (NEGATIVE); KETONES,URINE 1+ (NEGATIVE); LEUKOCYTE ESTERASE ,URINE 1+ (NEGATIVE); NITRITE,URINE NEGATIVE (NEGATIVE); PH,URINE 6.5 (4.5-8.0); PROTEIN,URINE 2+ (NEGATIVE); UROBILINOGEN,URINE NORMAL MG/DL (0.0-1.0)
[2019-05-23 01:24] LABS: COLOR,URINE YELLOW
[2019-05-23 02:09] VITALS: BP 121/77
[2019-05-23] MEDS ORDERED: PRENATABS RX T1 EACH PO (04:30)
[2019-05-23] MEDS ORDERED: FAMOTIDINE20 MG ORAL (04:30)
[2019-05-23] MEDS ORDERED: TYLENOL325 MG ORAL (04:30)
[2019-05-23 04:35] VITALS: BP 118/69
--- NOTE | 2019-05-23 04:35 | NUR ---
ED Nurse Note: Pt cleared by ERMD for discharge. DC instructions/prescription was given and explained to pt and verbalized understanding of teachings. All medical deviecs such as ID band and IV line removed. Pt is AAO x4, ambulatory and left with all personal belongings.
== END 2019-05-23 04:35 | disposition home or self-care (01) ==
LOC: EDBD → EMR 00:33
DX: R06.4 Hyperventilation (principal); F14.10 Cocaine abuse, uncomplicated; E87.6 Hypokalemia; D72.829 Elevated white blood cell count, unspecified; Z33.1 Pregnant state, incidental; R00.0 Tachycardia, unspecified
CPT/HCPCS: 36415; 80053; 80307; 81003; 81025; 83690; 84443; 84484; 85025; 93005; 96361; 96374; 96375; 99284; J7030; S0028

== ENCOUNTER 2019-07-29 19:01 | Emergency (ER) | payer MEDICAID, OTHER ==
[~2019-07-29] VITALS: Ht 160 cm; Wt 99.8 kg
[2019-07-29 19:01] VITALS: BP 146/87
[~2019-07-29 19:01] MED LIST changes: +FAMOTIDINE20 MG ORAL; +PRENATABS RX T1 EACH PO
--- NOTE | 2019-07-29 19:03 | NUR ---
ED Nurse Note: pt walked in to ER from home due to left side of upper tooth ache x3 days and chills and vomiting with tooth achce. pt aao x4 and ambulatory. skin clean and intact. calm and cooperative. no cardiac or pulmonary distress noted at this time. pt denied coughing and SOB.
--- NOTE | 2019-07-29 19:13 | NUR ---
HAND-OFF: Report given to VERNA Haywood. pt has not been seen by ERPA yet. no orders.
--- NOTE | 2019-07-29 19:23 | Emergency Room Report ---
History of Present Illness General Chief Complaint: Toothache Source: Patient Present Illness HPI 28-year-old female with no significant past medical history here complaining of 3 days of left-sided toothache radiating to left ear. Complains of feeling feverish and chills. Reports that around the same time she started feeling nausea however denies vomiting, abdominal pain, diarrhea, cough and congestion, shortness of breath. Reports that she has been taking Advil for her pain. Reports that she has been taking Advil with food. Reports that she has been at home for the past 2 weeks. Has not been able to make an appointment with a dentist. Minimal swelling noted in the left maxilla. Denies any pus drainage. Rates the pain 7 out of 10. Denies tingling numbness. Has range of motion. Denies . Allergies: Coded Allergies: ASPIRIN (Verified Allergy, Unknown, 04/18/12) COVID-19 Screening Contact w/high risk pt: No Recent Travel to affected area: No Experienced COVID-19 symptoms?: No Patient History Past Medical History: see triage record Past Surgical History: none Pertinent Family History: none Last Menstrual Period: 07/25/19 Now: No : 2 Para: 1 Immunizations: UTD Reviewed Nursing Documentation: PMH: Agreed; PSxH: Agreed Nursing Documentation-PMH Past Medical History: No History, Except For Hx Cardiac Problems: No Hx Asthma: Yes Hx Cancer: No Hx Gastrointestinal Problems: Yes - GASTRITIS History Of Psychiatric Problem: Yes - anxiety Hx Neurological Problems: No Review of Systems All Other Systems: negative except mentioned in HPI Physical Exam Vital Signs Date Time Temp Pulse Resp B/P (MAP) Pulse Ox O2 Delivery O2 Flow Rate FiO2 07/29/19 18:59 99.0 84 18 146/87 (106) 99 Room Air Sp02 EP Interpretation: reviewed, normal General Appearance: no apparent distress, alert, GCS 15, non-toxic Head: normocephalic, atraumatic Eyes: bilateral eye normal inspection, bilateral eye PERRL ENT: EOM grossly intact, normal pharynx, no angioedema, TMs + canals normal, other - Left upper premolar infection with maxillary swelling Neck: full range of motion, supple/symm/no masses Respiratory: lungs clear, no rhonchi, no wheezing Cardiovascular #1: regular rate, rhythm, no edema, no murmur Gastrointestinal: non tender, soft Genitourinary: no CVA tenderness Musculoskeletal: back normal Neurologic: alert, oriented Psychiatric: judgement/insight normal Skin: no rash Lymphatic: normal inspection Medical Decision Making PA Attestation All diagnoses and treatment plans were reviewed and discussed with my supervising physician Dr. Pickens Diagnostic Impression: Primary Impression: Tooth infection Additional Impression: Nausea ER Course 28-year-old female with no significant past medical history here complaining of 3 days of left-sided toothache radiating to left ear. Complains of feeling feverish and chills. Reports that around the same time she started feeling nausea however denies vomiting, abdominal pain, diarrhea, cough and congestion, shortness of breath. Reports that she has been taking Advil for her pain. Reports that she has been taking Advil with food. Reports that she has been at home for the past 2 weeks. Has not been able to make an appointment with a dentist. Minimal swelling noted in the left maxilla. Denies any pus drainage. Rates the pain 7 out of 10. Denies tingling numbness. Has range of motion. Denies . Ddx considered but are not limited to : Cellulitis, dental abscess, dental infection Vital signs: are WNL, pt. is afebrile H&PE are most consistent with: Dental infection, nausea, unspecified ORDERS: Augmentin, Tylenol, lidocaine viscous, Zofran ED INTERVENTIONS: None required at this time. DISCHARGE: At this time pt. is stable for d/c to home. Will provide printed patient care instructions, and any necessary prescriptions. Care plan and follow up instructions have been discussed with the patient prior to discharge. Advised patient not to take Advil, take medication as directed, follow-up with your dentist, listed dental offices the patient can contact us either open for follow-up. Last Vital Signs Date Time Temp Pulse Resp B/P (MAP) Pulse Ox O2 Delivery O2 Flow Rate FiO2 07/29/19 19:01 99.0 88 18 146/87 99 Room Air Disposition: HOME, SELF-CARE Condition: Stable Scripts Ondansetron (Zofran) 4 Mg Tablet 4 MG ORAL Q6H PRN for Nausea & Vomiting, #14 TAB Prov: Amy Sanchez 07/29/19 Lidocaine HCl 2% Viscous (Lidocaine HCl 2% Viscous) 100 Ml Solution 15 ML ORAL QID, #100 ML Prov: Amy Sanchez 07/29/19 Acetaminophen* (TYLENOL EXTRA STRENGTH*) 500 Mg Tablet 2 TAB ORAL Q8H PRN for Prn Headache/Temp > 101, #30 TAB 0 Refills Prov: Amy Sanchez 07/29/19 Amoxicillin/Potassium Clav 875-125* (AUGMENTIN 875-125 TABLET*) 1 Each Tablet 1 TAB ORAL TWICE A DAY for 10 Days, #20 TAB Prov: Amy Sanchez 07/29/19 Patient Instructions: Dental Pain, Nausea, Adult Additional Instructions: Take medication as directed, follow-up with your primary care doctor, follow-up with your dentist, if worsening symptoms return to the emergency room Amy Sanchez Jul 29, 2019 19:23
[2019-07-29] MEDS ORDERED: AUGMENTIN 875-1 EAC1 ORAL (19:25)
[2019-07-29] MEDS ORDERED: LIDOCAINE VISC100 ML ORAL (19:25)
[2019-07-29] MEDS ORDERED: TYLENOL EXTRA500 MG ORAL (19:25)
[2019-07-29] MEDS ORDERED: ZOFRAN4 M1 ORAL (19:25)
--- NOTE | 2019-07-29 19:32 | NUR ---
ER DISCHARGE NOTE: Patient is cleared to be discharged per ERMD, pt is aox4, on room air, with stable vital signs. pt was given dc and prescription instructions, pt was able to verbalize understanding, pt id band removed without complications. pt is able to ambulate with steady gait. pt took all belongings.
[2019-07-29 19:33] VITALS: BP 146/87
== END 2019-07-29 19:32 | disposition home or self-care (01) ==
LOC: EDBD 19:01 → EMR 19:30
DX: K04.7 Periapical abscess without sinus (principal); R11.0 Nausea; F41.9 Anxiety disorder, unspecified; Z88.6 Allergy status to analgesic agent
CPT/HCPCS: 99282

== ENCOUNTER 2019-09-05 07:22 | Emergency (ER) | payer OTHER ==
[~2019-09-05] VITALS: Ht 172.7 cm; Wt 81.6 kg
[~2019-09-05 07:22] MED LIST changes: +LIDOCAINE VISC100 ML ORAL; +ZOFRAN4 M1 ORAL
[2019-09-05] MEDS ORDERED: LORazepam 1mg tab ORAL ONE (07:30)
[2019-09-05] MEDS ORDERED: ALPRAZOLAM0.25 MG ORAL (07:33)
--- NOTE | 2019-09-05 07:36 | Emergency Room Report ---
History of Present Illness General Chief Complaint: Anxiety attack Source: Patient Present Illness HPI Patient is a 28-year-old female past medical history of anxiety and panic attacks who presents to the ER complaining of panic attack. Patient states that she started feeling palpitations, shortness of breath, paresthesias and just a sensation of anxiety prior to arrival. Patient states that she has no medications for it at home but used to take some pills for it. She denies any fever or chills. She denies any chest pain. She states that this is consistent with her prior panic attacks. Patient denies any abdominal pain, nausea or vomiting. Allergies: Coded Allergies: ASPIRIN (Verified Allergy, Unknown, 04/18/12) COVID-19 Screening Contact w/high risk pt: No Recent Travel to affected area: No Experienced COVID-19 symptoms?: No Patient History Past Medical History: other - anxiety Past Surgical History: Social History: Denies: smoking, alcohol use, drug use Nursing Documentation-PMH Hx Cardiac Problems: No Hx Asthma: Yes Hx Cancer: No Hx Gastrointestinal Problems: Yes - GASTRITIS Hx Neurological Problems: No Review of Systems All Other Systems: negative except mentioned in HPI Physical Exam Sp02 EP Interpretation: reviewed, normal General Appearance: no apparent distress, alert, GCS 15, non-toxic Head: normocephalic, atraumatic Eyes: bilateral eye normal inspection, bilateral eye PERRL ENT: hearing grossly normal, normal pharynx, no angioedema, normal voice Neck: full range of motion, supple/symm/no masses Respiratory: chest non-tender, lungs clear, normal breath sounds, speaking full sentences Cardiovascular #1: no edema, tachycardia Gastrointestinal: normal bowel sounds, non tender, soft, non-distended, no guarding, no rebound Rectal: deferred Genitourinary: normal inspection, no CVA tenderness Musculoskeletal: back normal, normal range of motion, gait/station normal, non- tender Neurologic: alert, motor strength/tone normal, oriented x3, sensory intact, responsive, speech normal Psychiatric: anxious Skin: no rash Lymphatic: no adenopathy Medical Decision Making Diagnostic Impression: Primary Impression: Anxiety ER Course Patient's EKG demonstrates sinus tachycardia without any ST changes. Patient's heart rate has improved after being given Ativan. She states that her anxiety is improving as well. I have given her outpatient resources as well as a very small prescription for Xanax as needed anxiety attack. After discussing risks and benefits of further diagnostics, treatment plans, as well as indications for and risks of admission, the patient is agreeable to being discharged home. I have explained that their evaluation and treatment in the emergency department today is an important step towards them achieving better health but that their evaluation today is not intended to replace further evaluation and treatment by a physician in their local clinic. I have explained that while the current findings suggest no immediate life threatening emergency they will require further evaluation and treatment by a physician of their choice in their area. They understand that it will be necessary for them to review the final reports of their ED visit with their clinic physician. We have reviewed indications for return to the Emergency Department. I have explained that additional time may need to pass and/or additional testing as an outpatient may be necessary before a definitive diagnosis can be made. They tell me they are willing to follow up as instructed within the timeframe I recommend. They appear to understand what we discussed. Additionally they understand that if they are unable to be seen by an outpatient physician they are welcome, and in fact should, return to the Emergency Department for a repeat evaluation. The patient is stable at time of discharge. EKG Diagnostic Results EKG Time: 07:30 EP Interpretation: MD Heidi Rate: tachycardiac Rhythm: other - sinus tachycardia ST Segments: no acute changes ASA given to the pt in ED: No Disposition: HOME, SELF-CARE Condition: Stable - improved Scripts Alprazolam* (XANAX*) 0.25 Mg Tablet 0.5 MG ORAL TID PRN for For Anxiety, #5 TAB Prov: Sandra Gordon M.D. 09/05/19 Referrals: [facility] + [facility] [place] [facility] - Peds ER - [facility] Intake Hotline - Patient Instructions: Panic Attacks, [id number] Additional Instructions: The patient was provided with discharge instructions, notified to follow-up with a primary care doctor and or specialist in the next 24-48 hours, and to return to the ED if they have worsening of their symptoms. Please note that this report is being documented using [employer] technology. This can lead to erroneous entry secondary to incorrect interpretation by the dictating instrument. Sandra Gordon M.D. September 05, 2019 07:36
[2019-09-05 07:40] VITALS: BP 137/96
[2019-09-05 08:09] VITALS: BP 132/94
== END 2019-09-05 08:09 | disposition home or self-care (01) ==
LOC: EMR 07:30
DX: F41.9 Anxiety disorder, unspecified (principal); J45.909 Unspecified asthma, uncomplicated; Z88.6 Allergy status to analgesic agent
CPT/HCPCS: 93005; Z7502; 99283

== ENCOUNTER 2019-11-09 04:19 | Emergency (ER) | payer OTHER ==
[~2019-11-09 04:19] MED LIST changes: +ALPRAZOLAM0.25 MG ORAL
[2019-11-09] MEDS ORDERED: ZOFRAN4 M1 ORAL (04:42)
== END 2019-11-09 04:54 | disposition left against medical advice (07) ==
DX: R60.0 Localized edema (principal); R11.10 Vomiting, unspecified; Z88.6 Allergy status to analgesic agent

== ENCOUNTER 2020-01-26 00:18 | Emergency (ER) | payer OTHER ==
[~2020-01-26] VITALS: Ht 160 cm; Wt 117.9 kg
--- NOTE | 2020-01-26 00:34 | Emergency Room Report ---
History of Present Illness General Chief Complaint: Female Urogenital Problems Source: Patient Present Illness HPI 29-year-old female presents with left flank pain and nausea x 3 days. Also endorses dysuria but denies hematuria or fever. Denies concern for sexually transmitted infection. She states that this feels similar to 5 years ago when she had a kidney stone. Denies chest pain, shortness of breath, rash, fevers, chills, melena, hematochezia, hematuria, vomiting The patient's symptoms were gradual onset, severity was moderate, duration since 3 days. Quality: Aching, comes in waves Better with massaging her left side. States "I cannot get comfortable" Past medical history: Kidney stone Past surgical history: x1 Smoking: Denies Alcohol use: Denies Drug use: Denies Review of systems: CONST: No fevers or chills, No night sweats PULMONARY: No productive cough, No shortness of breath CARDIAC: No chest pain, No palpitations GI: No vomiting, No diarrhea , No melena_or_BRBPR : No dysuria, No hematuria, No discharge NEURO: No new_focal_weakness_or_numbness, No confusion, No vision changes 14 point Review of Systems is otherwise negative except per HPI Physical Exam: GENERAL: Awake_alert_ nontoxic, no acute distress Spo2 96% on RA -normal EYES: Extraocular muscles are intact. Conjunctivae clear. Lids without swelling ENT: External nose and ear normal_in_appearance. Oropharynx clear. Head_ atraumatic, Moist_oral_mucosa NECK: No JVD. No meningismus. No thyromegaly. Supple. Trachea midline RESP: Normal respiratory effort. Symmetric rise. No stridor. Clear_to_auscultation_No_rales_No_wheezes CARDIAC: Regular rate and regular rhytm. No_significant pedal edema. ABDOMEN: Soft. Nondistended. Nontender_No_rebound_or_guarding. Mild left flank CVA tenderness to palpation Negative Rovsing's. Negative obturator. Negative Corrales sign MSK: Normal muscle tone, without rigidity. Extremities without asymmetric deformity or swelling. SKIN: Warm and dry. No visible cyanosis or pallor NEUROLOGIC: Alert, oriented x3. Motor_and_sensation_grossly_intact. No truncal ataxia. Gait_normal Psych: Normal mood and affect, normal judgment and insight - COORDINATION OF CARE Case was discussed with: Patient Any labs and imaging that were ordered were interpreted as part of the medical decision making: Medical Decision Making/Plan: Differential diagnosis includes nephrolithiasis versus pyelonephritis versus muscle strain/strain, gastritis, PUD Doubt cholecystitis, choledocholithiasis, hepatitis, volvulus, AAA, p ancreatitis, atypical appendicitis among others. Patient is well appearing with stable vital signs. Abdominal exam is non per itoneal with no guarding or rebound. Labs show nonspecific leukocytosis. When trended with previous ER visits, she usually runs a white blood cell count between 12 and 14. UA is consistent with pyelonephritis. CT shows gastroenteritis without obstructive uropathy or acute surgical emergency. No infected stone or renal abscess. Patient has no red flag symptoms for cauda equina, conus medullaris, or spinal epidural abscess. Symptoms are likely secondary to pyelonephritis/gastroenteritis as seen on CT. ED intervention included NS IVF, morphine and Zofran with full relief of symptoms. Received Rocephin in the ED DC w Cipro/Flagyl for home. Recommend repeat abdominal examination with primary care doctor in 1 to 2 days. Pertinent results reviewed with the patient. I educated the patient on the current treatment plan including the risks, benefits, and alternatives. I also discussed the extent and limitations of the current evaluation. The patient expressed understanding and agreement with plan. I recommended PMD follow-up within 1-2 days. Also advised that the patient return to the Emergency Department as soon as possible if they experience any new, persistent, or worsening symptoms. 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 COVID-19 Testing Source: nasal Patient History Last Menstrual Period: 01-21-2020 Nursing Documentation-[facility] Past Medical History: No Stated History Hx Cardiac Problems: No Hx Asthma: No Hx Cancer: No Hx Gastrointestinal Problems: No Hx Neurological Problems: No Physical Exam Vital Signs Date Time Temp Pulse Resp B/P (MAP) Pulse Ox O2 Delivery O2 Flow Rate FiO2 01/26/20 00:25 98.1 96 20 164/93 (116) 96 Room Air Sp02 EP Interpretation: reviewed, normal Medical Decision Making Diagnostic Impression: Primary Impression: Abdominal pain Additional Impressions: Gastroenteritis Pyelonephritis Dysuria Obesity UTI (lower urinary tract infection) CT/MRI/US Diagnostic Results CT/MRI/US Diagnostic Results : Impression CT Abdomen and Pelvis Without Intravenous Contrast ABDOMEN: Liver: See below. Gallbladder and bile ducts: See below. Pancreas: See below. Spleen: See below. Adrenals: Unremarkable. No mass. Kidneys and ureters: See below. Stomach and bowel: Fluid within nondistended loops of small bowel and within stomach without bowel wall thickening or surrounding inflammation can be normal or can be seen with gastroenteritis in the right clinical setting. PELVIS: Appendix: No appendicitis, inflammatory changes of bowel or bowel obstruction. Bladder: Unremarkable. No stones. Reproductive: Unremarkable as visualized. ABDOMEN and PELVIS: Intraperitoneal space: No free fluid. No free air. Bones/joints: No acute fracture. No dislocation. Soft tissues: Unremarkable. Vasculature: Aorta, liver, spleen, pancreas, gallbladder, and kidneys are unremarkable. No abdominal aortic aneurysm. Lymph nodes: Unremarkable. No enlarged lymph nodes. IMPRESSION: 1. Fluid within nondistended loops of small bowel and within stomach without bowel wall thickening or surrounding inflammation can be normal or can be seen with gastroenteritis in the right clinical setting. 2. No other acute disease or bowel obstruction. Radiologist: Aydin Medina M.D. Electronically Signed: 01/26/20 02:41 Study ready at 02:19 and initial results transmitted at 02:41 Reevaluation Time: 02:45 Last Vital Signs Date Time Temp Pulse Resp B/P (MAP) Pulse Ox O2 Delivery O2 Flow Rate FiO2 01/26/20 00:25 98.1 96 20 164/93 (116) 96 Room Air Status: improved Disposition: HOME, SELF-CARE Admit Decision Time: 03:09 Condition: Stable Scripts Acetaminophen* (TYLENOL EXTRA STRENGTH*) 500 Mg Tablet 500 MG ORAL Q8H PRN for Prn Headache/Temp > 101, #30 TAB 0 Refills Prov: Angelic Keenan D.OChris 01/26/20 Metronidazole* (FLAGYL*) 500 Mg Tablet 500 MG ORAL BID for 7 Days, #14 TAB Prov: Angelic Keenan D.O. 01/26/20 Ondansetron Odt* (ZOFRAN ODT*) 4 Mg Tab.rapdis 4 MG BC EVERY 6 HOURS PRN for Nausea & Vomiting, #10 TAB 0 Refills Prov: Angelic Keenan D.O. 01/26/20 Ciprofloxacin Hcl* (CIPROFLOXACIN HCL*) 500 Mg Tablet 500 MG ORAL Q12H, #14 TAB 0 Refills Prov: Angelic Keenan D.O. 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 Return to the emergency department immediately if you feel that your condition is worsening or if you have any new or concerning symptoms. Review your discharge instructions and take any prescriptions given as instructed. [facility] PROVIDES FREE OR LOW-COST HEALTH SERVICES TO PEOPLE WHO CAN SHOW PROOF THAT THEY LIVE IN [facility]. TO FIND MORE CLINICS PARTNERED WITH [facility] TO PROVIDE SERVICE, PLEASE CALL . Angelic Keenan D.O. Jan 26, 2020 00:34
[2020-01-26 00:35] VITALS: BP 164/93
--- NOTE | 2020-01-26 00:35 | NUR ---
ED Nurse Note: pt ambulated into ed from home CO left flank pain that radiates to lower abdomen 10/10 x 3 days. Pt reports difficulty urinating and states she has burning during urination as well as urgency. Pt reports decrease in appetite with n/v x 1 day. Pt denies fever, chills, body aches. Pt states previous hx of kidney stones and reports that she was able to pass stone while urinating in the past. Pt aao x 4, ambulates with steady gait. VSS, pt placed in gown on monitor. Will continue to monitor. awaiting ermd at bedside.
--- NOTE | 2020-01-26 00:38 | NUR ---
ED Nurse Note: Pt states she is unable to provide urine sample at this time. will continue to monitor.
[2020-01-26] MEDS ORDERED: Tamsulosin 0.4mg cap ORAL ONE (00:48)
[2020-01-26] MEDS: Tamsulosin 0.4mg cap ORAL SCH (00:50)
--- NOTE | 2020-01-26 00:50 | NUR ---
ED Nurse Note: pt refused Flomax. ERMD aware.
--- NOTE | 2020-01-26 00:55 | NUR ---
ED Nurse Note: ERMD at bedside
[2020-01-26 00:58] LABS: BASOPHILS % (AUTO) 1.3 % (0.0-2.0); EOSINOPHILS % (AUTO) 2.2 % (0.0-3.0); HEMATOCRIT 35.8 % (37.0-47.0); HEMOGLOBIN 11.6 G/DL (12.0-16.0); LYMPHOCYTES % (AUTO) 23.3 % (20.0-45.0); MEAN CORPUSCULAR VOLUME 74 FL (80-99); MONOCYTES % (AUTO) 5.7 % (1.0-10.0); NEUTROPHILS % (AUTO) 67.5 % (45.0-75.0); PLATELET COUNT 257 K/UL (150-450); RED BLOOD COUNT 4.83 M/UL (4.20-5.40); RED CELL DISTRIBUTION WIDTH 17.7 % (11.6-14.8)
[2020-01-26 01:09] LABS: INR 1.1 (0.9-1.1)
[2020-01-26 01:13] LABS: ANION GAP 13 mmol/L (5-15); BLOOD UREA NITROGEN 9 mg/dL (7-18); CALCIUM 9.7 MG/DL (8.5-10.1); CARBON DIOXIDE 25 MMOL/L (21-32); CHLORIDE 102 MMOL/L (98-107); POTASSIUM 3.6 MMOL/L (3.5-5.1); SODIUM 140 MMOL/L (136-145)
[2020-01-26 01:15] LABS: ALANINE AMINOTRANSFERASE 15 U/L (12-78); ALBUMIN 4.1 G/DL (3.4-5.0); ALKALINE PHOSPHATASE 38 U/L (46-116); ASPARTATE AMINO TRANSFERASE 13 U/L (15-37); BILIRUBIN,TOTAL 0.2 MG/DL (0.2-1.0)
[2020-01-26] MEDS ORDERED: Morphine Sulfate 4mg/ml Inj (IV USE ONLY) ONE (01:36)
[2020-01-26] MEDS ORDERED: Morphine Sulfate 4mg/ml Inj (IV USE ONLY) IVP SCH (01:45)
--- NOTE | 2020-01-26 01:46 | NUR ---
ED Nurse Note: all medications administered, pt tolerated well, no ss of distress noted. will continue to monitor.
--- NOTE | 2020-01-26 01:47 | NUR ---
ED Nurse Note: Pt taken to CT in stable condition
--- NOTE | 2020-01-26 01:57 | NUR ---
ED Nurse Note: Pt returned from CT in stable condition. VSS no ss of distress noted. will continue to monitor.
[2020-01-26 02:04] VITALS: BP 145/83
--- NOTE | 2020-01-26 02:23 | NUR ---
ED Nurse Note: Urine sample obtained and sent to lab
[2020-01-26 02:35] LABS: BILIRUBIN, URINE NEGATIVE (NEGATIVE); GLUCOSE, URINE (UA) NEGATIVE (NEGATIVE); KETONES,URINE 2+ (NEGATIVE); NITRITE,URINE NEGATIVE (NEGATIVE); PH,URINE 6 (4.5-8.0); PROTEIN,URINE 2+ (NEGATIVE); UROBILINOGEN,URINE NORMAL MG/DL (0.0-1.0)
--- NOTE | 2020-01-26 02:41 | Diagnostic Imaging Report ---
EXAM: CT Abdomen and Pelvis Without Intravenous Contrast CLINICAL HISTORY: ABD PAIN TECHNIQUE: Axial computed tomography images of the abdomen and pelvis without intravenous contrast. CTDI is 12.40 mGy and DLP is 676.40 mGy-cm. One or more of the following dose reduction techniques were used: automated exposure control, adjustment of the mA and/or kV according to patient size, use of iterative reconstruction technique. COMPARISON: No relevant prior studies available. FINDINGS: Lung bases: Unremarkable. No mass. No consolidation. ABDOMEN: Liver: See below. Gallbladder and bile ducts: See below. Pancreas: See below. Spleen: See below. Adrenals: Unremarkable. No mass. Kidneys and ureters: See below. Stomach and bowel: Fluid within nondistended loops of small bowel and within stomach without bowel wall thickening or surrounding inflammation can be normal or can be seen with gastroenteritis in the right clinical setting. PELVIS: Appendix: No appendicitis, inflammatory changes of bowel or bowel obstruction. Bladder: Unremarkable. No stones. Reproductive: Unremarkable as visualized. ABDOMEN and PELVIS: Intraperitoneal space: No free fluid. No free air. Bones/joints: No acute fracture. No dislocation. Soft tissues: Unremarkable. Vasculature: Aorta, liver, spleen, pancreas, gallbladder, and kidneys are unremarkable. No abdominal aortic aneurysm. Lymph nodes: Unremarkable. No enlarged lymph nodes. IMPRESSION: 1. Fluid within nondistended loops of small bowel and within stomach without bowel wall thickening or surrounding inflammation can be normal or can be seen with gastroenteritis in the right clinical setting. 2. No other acute disease or bowel obstruction.
[2020-01-26] MEDS ORDERED: METRONIDAZOLE500 MG ORAL (02:46)
[2020-01-26] MEDS ORDERED: ONDANSETRON ODT4 MG BC (02:46)
[2020-01-26] MEDS ORDERED: CIPROFLOXACIN500 M2 ORAL (02:46)
[2020-01-26] MEDS ORDERED: TYLENOL EXTRA500 MG ORAL (02:46)
[2020-01-26 02:48] LABS: APPEARANCE,URINE CLOUDY; COLOR,URINE YELLOW
[2020-01-26 02:49] LABS: LEUKOCYTE ESTERASE ,URINE 2+ (NEGATIVE)
--- NOTE | 2020-01-26 03:10 | NUR ---
ED Nurse Note: ERMD at bedside
[2020-01-26] MEDS ORDERED: Azithromycin 250mg tab ORAL ONE (03:15)
[2020-01-26] MEDS ORDERED: cefTRIAXone 1 GM in NS 55 ML IVPB ONE (03:15)
[2020-01-26] MEDS ORDERED: Morphine Sulfate 2mg/ml Inj(IV/IM USE ONLY) IVP ONE (03:45)
--- NOTE | 2020-01-26 03:55 | NUR ---
ED Nurse Note: all medications administered, pt tolerated well no ss of distress noted. pt resting in bed, will continue to monitor.
[2020-01-26 04:04] VITALS: BP 136/73
[2020-01-26 04:17] VITALS: BP 137/79
--- NOTE | 2020-01-26 04:17 | NUR ---
ER DISCHARGE NOTE: Patient is cleared to be discharged home per ERMD, pt is aox4, 99% on room air, with stable vital signs. pt was given dc and prescription instructions, pt was able to verbalize understanding, pt id band and iv site removed without complications. pt is able to ambulate with steady gait. pt took all belongings.
== END 2020-01-26 04:17 | disposition home or self-care (01) ==
LOC: EMR 00:35
DX: K52.9 Noninfective gastroenteritis and colitis, unspecified (principal); N12 Tubulo-interstitial nephritis, not specified as acute or chronic; R30.0 Dysuria; E66.9 Obesity, unspecified; R10.9 Unspecified abdominal pain; Z87.442 Personal history of urinary calculi; Z88.6 Allergy status to analgesic agent
CPT/HCPCS: 36415; 74176; 80053; 81003; 83690; 84702; 85025; 85610; 85730; 87086; 96361; 96365; 96375; 96376; J0696; J2270; J2405; J7030; Q0144; Z7502; 99284

== ENCOUNTER 2020-02-25 18:35 | Emergency (ER) | payer OTHER ==
[~2020-02-25] VITALS: Ht 160 cm; Wt 117.9 kg
[2020-02-25] MEDS ORDERED: Methocarbamol 500mg tab ORAL ONE (19:00)
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
[2020-02-25 19:07] VITALS: BP 122/73
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
[2020-02-25] MEDS ORDERED: LIDODERM700 M1 TOPIC (19:14)
[2020-02-25] MEDS ORDERED: ROBAXIN-750750 MG PO (19:14)
[2020-02-25 19:19] VITALS: BP 122/73
--- NOTE | 2020-02-25 19:20 | NUR ---
ED Nurse Note: Pt cleared by health care Provider for discharge. DC instructions/prescription was given and explained to pt and verbalized understanding of teachings. All medical deviecs such as ID band removed. Pt is AAO x4, ambulatory and left with all personal belongings.
== END 2020-02-25 19:19 | disposition home or self-care (01) ==
LOC: EMR 19:00
DX: S16.1XXA Strain of muscle, fascia and tendon at neck level, initial encounter (principal); S39.012A Strain of muscle, fascia and tendon of lower back, initial encounter; S40.012A Contusion of left shoulder, initial encounter; V43.52XA Car driver injured in collision with other type car in traffic accident, initial encounter; Y92.410 Unspecified street and highway as the place of occurrence of the external cause; Z88.6 Allergy status to analgesic agent
CPT/HCPCS: 99282

== ENCOUNTER → 2020-03-04 | Emergency (ER) | payer OTHER ==
[~2020-03-04] VITALS: Ht 160 cm; Wt 127.0 kg
[~2020-03-04] MED LIST changes: +LIDODERM700 M1 TOPIC
--- NOTE | 2020-03-04 10:53 | NUR ---
ED Nurse Note: Pt ambulated to ED from home d/t L leg pain that has been going on for 10 days. Pt is AOx4, calm and cooperative to care, pt's VSS, on RA, afebrile on triage, denies any recent trauma/injury on the affected area.
[2020-03-04 11:26] VITALS: BP 126/82
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
== END | disposition left against medical advice (07) ==
LOC: EMR 11:23
DX: S89.92XD Unspecified injury of left lower leg, subsequent encounter (principal); V89.2XXD Person injured in unspecified motor-vehicle accident, traffic, subsequent encounter; J45.909 Unspecified asthma, uncomplicated; Z88.6 Allergy status to analgesic agent
CPT/HCPCS: 99282